=== PATIENT | female | born 1930 | race Caucasian/White ===

== ENCOUNTER 2017-12-29 08:13 | Inpatient (IN) | payer OTHER, MEDICARE ==
[2017-12-29] MEDS ORDERED: ACETAMINOPHEN 325 MG TABLET (FP) PO ONE (08:30)
--- NOTE | 2017-12-29 08:31 | PDOC ---
History of Present Illness - General Chief Complaint: Injury Stated Complaint: FALL Time Seen by Provider: 12/29/17 08:18 - History of Present Illness Initial Comments: 12/29/17 08:39 Patient is an 87-year-old female past medical history of insulin-dependent diabetes, CVA, hypertension, hypothyroidism, who presents to emergency department today after a trip and fall at home. Patient states that she was getting up from the couch to put her slipper on when her foot missed. She fell and landed on her right hip. She was unable to get up after the fall and laid on the floor for approximately one hour until family came to find her. Patient is unable to bear weight on that side. Denies pain while lying down, or hitting her head. Patient is not on blood thinners. Denies fevers, chills, recent illness, chest pain, shortness of breath, palpitations, headache, numbness and tingling in the extremities, frequency, urgency and hematuria. Triage vital signs notable for BP 178/87 PCP: Dr. Corey Past History - Travel Traveled outside of the country in the last 30 days: No Close contact w/someone who was outside of country & ill: No - Past Medical History Allergies/Adverse Reactions: Allergies Allergy/AdvReac Type Severity Reaction Status Date / Time No Known Allergies Allergy Verified 12/29/17 08:22 Home Medications: Ambulatory Orders Amlodipine Besylate 10 mg PO DAILY 12/29/17 Glyburide 10 mg PO BID 12/29/17 Insulin (Levemir) [Levemir Flexpen -] 18 units SQ DAILY 12/29/17 Levothyroxine [Synthroid -] 75 mcg PO DAILY 12/29/17 Lisinopril 20 mg PO BID 12/29/17 Metformin HCl [Glucophage] 1,000 mg PO BID 12/29/17 Metoprolol Tartrate 50 mg PO BID 12/29/17 Pioglitazone HCl [Actos] 30 mg PO DAILY 12/29/17 Pravastatin Sodium [Pravachol (Nf)] 40 mg PO HS 12/29/17 Sitagliptin Phosphate [Januvia] 100 mg PO DAILY 12/29/17 Diabetes: Yes HTN: Yes Hypercholesterolemia: Yes - Surgical History Cardiac Surgery: Yes (CAROTID ENDARDERECTOMY) - Suicide/Smoking/Psychosocial Hx Smoking History: Never smoked Have you smoked in the past 12 months: No Hx Alcohol Use: No Drug/Substance Use Hx: No Substance Use Type: None Hx Substance Use Treatment: No Review of Systems - Review of Systems Able to Perform ROS?: Yes Comments:: 12/29/17 08:40 CONSTITUTIONAL: Absent: fever, chills, diaphoresis, generalized weakness, malaise, loss of appetite HEENT: Absent: rhinorrhea, nasal congestion, throat pain, throat swelling, difficulty swallowing, mouth swelling, ear pain, eye pain, visual Changes CARDIOVASCULAR: Absent: chest pain, loss of consciousness, palpitations, irregular heart rate, peripheral edema RESPIRATORY: Absent: cough, shortness of breath, dyspnea with exertion, orthopnea, wheezing, stridor, hemoptysis GASTROINTESTINAL: Absent: abdominal pain, abdominal distension, nausea, vomiting, diarrhea, constipation, melena, hematochezia GENITOURINARY: Absent: dysuria, frequency, urgency, hesitancy, hematuria, flank pain, genital pain MUSCULOSKELETAL: Present: R hip pain, Absent: arthralgia, joint swelling SKIN: Absent: rash, itching, pallor HEMATOLOGIC/IMMUNOLOGIC: Absent: easy bleeding, easy bruising, lymphadenopathy, frequent infections ENDOCRINE: Absent: unexplained weight gain, unexplained weight loss, heat intolerance, cold intolerance NEUROLOGIC: Absent: headache, focal weakness or paresthesias, dizziness, unsteady gait, seizure, mental status changes, bladder or bowel incontinence PSYCHIATRIC: Absent: anxiety, depression, suicidal or homicidal ideation, hallucinations. Is the patient limited Frisian proficient: No *Physical Exam - Physical Exam Comments: 12/29/17 08:40 GENERAL: Well developed, well nourished. Awake and alert x2, person and place. No acute distress. HEENT: Normocephalic, atraumatic. PERRLA, EOMI. No conjunctival pallor. Sclera are non- icteric. Moist mucous membranes. Oropharynx is clear. NECK: Supple. Full ROM. No JVD. Carotid pulses 2+ and symmetric, without bruits. No thyromegaly. No lymphadenopathy. CARDIOVASCULAR: Regular rate and rhythm. Systolic murmur loudest at the R 2nd-3rd intercostal space at the base. No rubs, or gallops. Distal pulses are 2+ and symmetric. PULMONARY: No evidence of respiratory distress. Lungs clear to auscultation bilaterally. No wheezing, rales or rhonchi. ABDOMINAL: Soft. Non-tender. Non-distended. No rebound or guarding. No organomegaly. Normoactive bowel sounds. MUSCULOSKELETAL R leg is shortened and externally rotated. TTP R thigh. Pt. unable lift R leg. DP pulse 2+ intact. Sensation grossly intact. Normal range of motion at all other joints. No bony deformities or tenderness. No CVA tenderness. EXTREMITIES: No cyanosis. No clubbing. No edema. No calf tenderness. SKIN: Warm and dry. Normal capillary refill. No rashes. No jaundice. NEUROLOGICAL: Alert, awake, appropriate. Cranial nerves 2-12 intact. No deficits to light touch and temperature in face, upper extremities and lower extremities. No motor deficits in the in face, upper extremities and lower extremities. Normoreflexic in the upper and lower extremities. Normal speech. Toes are down- going bilaterally. Gait is normal without ataxia. PSYCHIATRIC: Cooperative. Good eye contact. Appropriate mood and affect. 12/29/17 10:23 ED Treatment Course - LABORATORY CBC & Chemistry Diagram: 12/29/17 08:51 12/29/17 08:51 Medical Decision Making - Medical Decision Making 12/29/17 08:43 Patient is an 87-year-old female past medical history of insulin-dependent diabetes, hypertension, CVA, who presents emergency department today after what appears to be a mechanical trip and fall. Given right leg shortening and external rotation high suspicion for hip fracture at this time. Will also have broad differential given unwitnessed fall at home. 1.CBC, CMP, PT/INR, troponin, type and screen 2.EKG, chest x-ray, hip x-ray, head CT 3.Tylenol 4.Lance catheter, bed rest 5.reevaluate 12/29/17 09:45 Pt is positive for proximal displaced femur fracture on wet read. 1st call to Krish/Brian/Jonel. Pt is pending lab work. When back will admit to [facility]. 12/29/17 10:02 Spoke with HECTOR Royal for Dr. Rutherford service. Case discussed. States they will take the patient tomorrow afternoon for surgery. EKG: NSR, rate 81bpm normal axis, normal intervals. Unspecific T wave abnormality III, II. Wet read CXR: Cardiomegaly. No PNA. Unchanged from January 2014. Patient still pending labs; Trop is < 0.02. Head CT: Negative for acute intracranial pathology. 12/29/17 10:57 Sugar 330, 6 units insulin given at this time. Ortho consult placed in computer. Microblogged symphony for admission. 12/29/17 11:02 Case discussed with Irina Cowan NP. Agrees to admission on med/surg. *DC/Admit/Observation/Transfer Diagnosis at time of Disposition: Hyperglycemia Right femoral shaft fracture Qualifiers: Encounter type: initial encounter Fracture type: closed Fracture morphology: other fracture Qualified Code(s): S72.391A - Other fracture of shaft of right femur, initial encounter for closed fracture - Discharge Dispostion Condition at time of disposition: Stable Admit: Yes - Referrals - Patient Instructions - Post Discharge Activity
[2017-12-29 08:36] VITALS: BMI 36.3
[2017-12-29] MEDS ORDERED: ACETAMINOPHEN 325 MG TABLET (FP) ONE (08:37)
[2017-12-29 09:09] LABS: BASO % 0.4 % (0-2.0); EOS % 0.3 % (0-4.5); HEMATOCRIT 33.1 % (32.4-45.2); HEMOGLOBIN 11.3 GM/dL (10.7-15.3); LYMPH % 9.8 % (8-40); MCH 29.5 pg (25.7-33.7); MCHC 34.1 g/dl (32.0-36.0); MEAN CELL VOLUME 86.7 fl (80-96); MEAN PLT VOLUME 8.5 fl (7.5-11.1); MONO % 6.6 % (3.8-10.2); NEUT % 82.9 % (42.8-82.8); PLATELET COUNT 223 K/MM3 (134-434); RBC 3.82 M/mm3 (3.60-5.2); RDW 14.7 % (11.6-15.6); WHITE BLOOD COUNT 9.8 K/mm3 (4.0-10.0)
[2017-12-29 09:20] LABS: INR 1.07 (0.82-1.09); PROTHROMBIN TIME (PATIENT) 12.1 SEC (9.98-11.88)
[2017-12-29 09:37] LABS: ALBUMIN 3.7 g/dl (3.4-5.0); ALK PHOS 73 U/L (45-117); ANION GAP 7 (8-16); BILIRUBIN,TOTAL 0.6 mg/dL (0.2-1.0); BLOOD UREA NITROGEN 25 mg/dL (7-18); CALCIUM 8.5 mg/dL (8.5-10.1); CHLORIDE 101 mmol/L (98-107); CO2 28 mmol/L (21-32); CREATININE 0.9 mg/dL (0.55-1.02); SGPT/ALT 17 U/L (12-78); SODIUM 136 mmol/L (136-145)
--- NOTE | 2017-12-29 09:49 | PDOC ---
*Physical Exam - Vital Signs Last Vital Signs Temp Pulse Resp BP Pulse Ox 98.7 F 87 18 177/58 100 12/29/17 08:23 12/29/17 08:23 12/29/17 08:23 12/29/17 08:23 12/29/17 08:23 ED Treatment Course - LABORATORY CBC & Chemistry Diagram: 12/29/17 08:51 12/29/17 08:51 - ADDITIONAL ORDERS Additional order review: Laboratory Results 12/29/17 12/29/17 08:51 08:51 PT with INR 12.10 H INR 1.07 Blood Type Cancelled Antibody Screen Cancelled 12/29/17 08:51 RBC 3.82 MCV 86.7 MCHC 34.1 RDW 14.7 MPV 8.5 Neutrophils % 82.9 H Lymphocytes % 9.8 D Monocytes % 6.6 Eosinophils % 0.3 Basophils % 0.4 - Medications Given in the ED: ED Medications Discontinued Medications Generic Name Dose Route Start Last Admin Trade Name Freq PRN Reason Stop Dose Admin Acetaminophen 650 mg 12/29/17 08:30 12/29/17 08:45 Tylenol - PO 12/29/17 08:31 650 mg ONCE ONE Administration Medical Decision Making - Medical Decision Making 12/29/17 09:47 87-year-old female had a fall at home when she got up from the couch and tried to get her slippers. She is complaining of right proximal hip pain. She denies head injury or other injuries. She denies loss of consciousness, however , the patient is unable to give all the details of the fall. On examination she is awake and alert, oriented 2. The head is normocephalic and atraumatic. Neck is normal with no tenderness. Lungs are clear. Heart is regular rhythm without gallop or murmur. Abdomen is soft and nontender. Extremities are notable for swelling and deformity of the right hip. The right lower leg is externally rotated and shortened. Sensation and motor is intact in the distal right leg. The foot is warm. Impression: Right proximal femur fracture as seen on x-ray. Head CT performed and negative on my preliminary review. Final radiology reading is pending. Patient will be admitted for orthopedic surgery. Medical screening with labs, EKG and chest x-ray in progress. *DC/Admit/Observation/Transfer Diagnosis at time of Disposition: Right femoral shaft fracture - Referrals - Patient Instructions - Post Discharge Activity
[2017-12-29 10:34] LABS: POTASSIUM 4.7 mmol/L (3.5-5.1); SGOT/AST 21 U/L (15-37)
[2017-12-29 10:35] LABS: GLUCOSE,RANDOM 330 mg/dL (74-106)
[2017-12-29] MEDS ORDERED: INSULIN REGULAR HUMAN 100 UNITS/ML *VIAL IVPUSH ONE (10:36)
--- NOTE | 2017-12-29 11:25 | HP ---
Admitting History and Physical - Primary Care Physician PCP: Roc Alvarez - Admission Chief Complaint: "took a fall" History of Present Illness: is a pleasant 87 year old female with a history of IDDM2, HTN, HLD,CAD , GERD, and Hypothyroidism who presents today s/p fall. Pt reports she was trying to get up from couch to put on slippers and sustained a fall and landed on her right hip. Pt denies LOC, hitting her head, lightheadedness, chest pain, palpitations, dizziness, unilateral weakness, n/v. She was unable to get up after the fall, found by family an hour later and they brought her into the ED. She reports she currently cannot move her hip. She denies any pain at the moment. She reports she is comfortable as long as she doesn't move. Otherwise, pt appears well, denies any further complaints. History Source: Patient, Family Member Limitations to Obtaining History: No Limitations - Past Medical History Cardiovascular: Yes: CAD, HTN, Hyperlipdemia, Mitral Insufficiency Gastrointestinal: Yes: GERD, Hemorrhoids, Other (fatty liver ds) Heme/Onc: Yes: Anemia, B12 Deficiency Musculoskeletal: Yes: Osteoarthritis Endocrine: Yes: Diabetes Mellitus (uncontrolled), Other (obesity) - Past Surgical History Past Surgical History: Yes: Carotid Endarterectomy (Right) - Smoking History Smoking history: Never smoked Have you smoked in the past 12 months: No - Alcohol/Substance Use Hx Alcohol Use: No History of Substance Use: reports: None - Social History Usual Living Arrangement: Yes: Alone History of Recent Travel: No Home Medications - Allergies Allergies/Adverse Reactions: Allergies Allergy/AdvReac Type Severity Reaction Status Date / Time No Known Allergies Allergy Verified 12/29/17 08:22 - Home Medications Home Medications: Ambulatory Orders Amlodipine Besylate 10 mg PO DAILY 12/29/17 Glyburide 10 mg PO BID 12/29/17 Insulin (Levemir) [Levemir Flexpen -] 18 units SQ DAILY 12/29/17 Levothyroxine [Synthroid -] 75 mcg PO DAILY 12/29/17 Lisinopril 20 mg PO BID 12/29/17 Metformin HCl [Glucophage] 1,000 mg PO BID 12/29/17 Metoprolol Tartrate 50 mg PO BID 12/29/17 Pioglitazone HCl [Actos] 30 mg PO DAILY 12/29/17 Pravastatin Sodium [Pravachol (Nf)] 40 mg PO HS 12/29/17 Sitagliptin Phosphate [Januvia] 100 mg PO DAILY 12/29/17 Family Disease History - Family Disease History Family Disease History: Diabetes: Father, Mother (liver ca ), Brother, [place]: Mother Review of Systems Findings/Remarks: as per hpi Physical Examination Vital Signs: Vital Signs Temperature 98.7 F 12/29/17 08:23 Pulse Rate 87 12/29/17 08:23 Respiratory Rate 18 12/29/17 08:23 Blood Pressure 177/58 12/29/17 08:23 O2 Sat by Pulse Oximetry (%) 100 12/29/17 08:23 Constitutional: Yes: Well Nourished, No Distress Cardiovascular: Yes: WNL, Regular Rate and Rhythm. No: Gallop, Murmur, Rub Respiratory: Yes: WNL, Regular, CTA Bilaterally. No: Rales, Rhonchi, SOB, Tachypnea, Wheezes Gastrointestinal: Yes: WNL, Normal Bowel Sounds, Soft, Abdomen, Obese. No: Distention, Tenderness Renal/: Yes: Dumont Present Musculoskeletal: Yes: WNL Extremities: Yes: External Rotation (right hip), Shortened. No: Cold, Cool, Cyanosis, Erythema Edema: Yes Edema: RLE: Trace Integumentary: Yes: WNL Neurological: Yes: WNL, Alert, Oriented Psychiatric: Yes: WNL, Alert, Oriented Labs: CBC, BMP 12/29/17 08:51 12/29/17 08:51 Imaging - Results Chest X-ray: Report Reviewed X-ray: Pending, Image Reviewed Cat Scan: Report Reviewed EKG: Pending Problem List - Problems (1) Right femoral shaft fracture Assessment/Plan: s/p fall xray reveals right femoral fracture right hip shortened and externally rotated, warm to touch orthopaedic surgery informed and consulted plan for surgery tomorrow am heparin sq tid, hold am dose tmrw Bedrest dumont in place NPO at MN Tylenol prn for adequate pain control awaiting pre-op cardiology clearance Post op- PT eval, hip precautions Code(s): S72.301A - UNSP FRACTURE OF SHAFT OF RIGHT FEMUR, INIT FOR CLOS FX Qualifiers: Encounter type: initial encounter Fracture type: closed Fracture morphology: other fracture Qualified Code(s): S72.391A - Other fracture of shaft of right femur, initial encounter for closed fracture (2) Fall at home Assessment/Plan: mechanical, right hip fx head ct/ chest xray neg fall precautions Code(s): W19.XXXA - UNSPECIFIED FALL, INITIAL ENCOUNTER; Y92.009 - UNSP PLACE IN UNSP NON-INSTITUT (PRIVATE) RESIDENCE PLACE Qualifiers: Encounter type: initial encounter Qualified Code(s): W19.XXXA - Unspecified fall, initial encounter; Y92.009 - Unspecified place in unspecified non-institutional (private) residence as the place of occurrence of the external cause; Y92.009 - Unspecified place in unspecified non-institutional ( private) residence as the place of occurrence of the external cause (3) Diabetes mellitus Assessment/Plan: chronic, gfr borderline 60, +proteinuria, glycosuria HgA1c pending Pt on ELIZABETH-I for renal protection will hold oral antihyperglycemic agents for now BGM continue levemir insulin sliding scale Code(s): E11.9 - TYPE 2 DIABETES MELLITUS WITHOUT COMPLICATIONS Qualifiers: Diabetes mellitus type: type 2 Diabetes mellitus complication status: with kidney complications Diabetes mellitus complication detail: with chronic kidney disease 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 Chronic kidney disease stage: stage 2 (mild) Qualified Code(s): E11.22 - Type 2 diabetes mellitus with diabetic chronic kidney disease; N18.2 - Chronic kidney disease, stage 2 (mild); N18.2 - Chronic kidney disease, stage 2 (mild); 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; 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; 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; Z79.4 - [facility] (current ) use of insulin (4) HTN (hypertension) Assessment/Plan: controlled continue lisinopril, amlodipine, metoprol low na diab diet Code(s): I10 - ESSENTIAL (PRIMARY) HYPERTENSION Qualifiers: Hypertension type: essential hypertension Qualified Code(s): I10 - Essential (primary) hypertension (5) Hypothyroidism Assessment/Plan: chronic, stable continue levothyroxine Code(s): E03.9 - HYPOTHYROIDISM, UNSPECIFIED (6) Obesity Assessment/Plan: BMI 36 incorporate life style modifications low na diab diet Code(s): E66.9 - OBESITY, UNSPECIFIED Qualifiers: Obesity type: due to excess calories Obesity classification: adult class 2 (BMI 35 - 39.9) Body mass index: BMI 36.0-36.9 (7) Hyperlipidemia Assessment/Plan: chronic continue lipitor low fat diet Code(s): E78.5 - HYPERLIPIDEMIA, UNSPECIFIED (8) History of carotid endarterectomy Assessment/Plan: s/p r carotid endarterectomy cardiology clearance pending Code(s): Z98.890 - OTHER SPECIFIED POSTPROCEDURAL STATES Assessment/Plan Dispo: Possible SNF for rehabilitation post-op
[2017-12-29 11:42] LABS: URINE APPEARANCE CLEAR; URINE BILIRUBIN NEGATIVE (NEGATIVE); URINE BLOOD NEGATIVE (NEGATIVE); URINE COLOR LTYELLOW; URINE GLUCOSE (UA) 3+ (NEGATIVE); URINE KETONE TRACE (NEGATIVE); URINE LEUK ESTERASE NEGATIVE (NEGATIVE); URINE NITRITE NEGATIVE (NEGATIVE); URINE UROBILINOGEN NEGATIVE mg/dL (0.2-1.0)
[2017-12-29 11:49] LABS: URINE PROTEIN 2+ (NEGATIVE)
[2017-12-29 11:51] LABS: EPI CELLS RARE /HPF (FEW)
[2017-12-29] MEDS ORDERED: ACETAMINOPHEN 325 MG TABLET (FP) PO PRN (12:17)
[2017-12-29] MEDS ORDERED: INSULIN (NOVOLOG) ASPART 100 UNITS/ML 10ML VIAL ONE (13:01)
[2017-12-29] MEDS ORDERED: LISINOPRIL 20 MG TABLET (FP) ONE (13:15)
[2017-12-29] MEDS ORDERED: amLODIPine BESYLATE 5 MG TABLET (FP) ONE (13:15)
[2017-12-29] MEDS ORDERED: METOPROLOL TARTRATE 50 MG TABLET (FP) ONE (13:16)
[2017-12-29] MEDS: LISINOPRIL 20 MG TABLET (FP) PO SCH ×2 (13:30→21:00)
[2017-12-29] MEDS: METOPROLOL TARTRATE 50 MG TABLET (FP) PO SCH ×2 (13:30→21:01)
[2017-12-29] MEDS: amLODIPine BESYLATE 10 MG TABLET (FP) PO SCH (13:30)
[2017-12-29] MEDS: INSULIN SLIDING SCALE (NOVOLOG) 1 VIAL SQ SCH ×2 (13:47→17:20)
[2017-12-29] MEDS ORDERED: INSULIN DETEMIR 100 UNITS/ML MDV SQ ONE (14:02)
--- NOTE | 2017-12-29 14:38 | EKG ---
Test Reason : Blood Pressure : / mmHG Vent. Rate : 081 BPM Atrial Rate : 081 BPM P-R Int : 146 ms QRS Dur : 088 ms QT Int : 358 ms P-R-T Axes : 006 -03 -59 degrees QTc Int : 415 ms NORMAL SINUS RHYTHM MINIMAL VOLTAGE CRITERIA FOR LVH, MAY BE NORMAL VARIANT ABNORMAL ECG WHEN COMPARED WITH ECG OF 08-SEP-2000 09:39, T WAVE INVERSION NOW EVIDENT IN INFERIOR LEADS T WAVE INVERSION NOW EVIDENT IN LATERAL LEADS Confirmed by ROSALBA MENDOZA MD ([id number]) on 12/29/2017 2:37:50 PM Referred By: Confirmed By:ROSALBA MENDOZA MD
[2017-12-29] MEDS: INSULIN DETEMIR 100 UNITS/ML MDV SQ SCH (15:13)
--- NOTE | 2017-12-29 16:30 | CONSULT ---
Consult Consult Specialty:: ortho Reason for Consultation:: Right hip fracture - History of Present Illness History of Present Illness: 87y/o female c/o right hip pain after a fall earlier today. She has been unable to walk since the fall. Denies any numbness or tingling in the RLE. Pain is worse with motion and better with rest. NVID. - Past Medical History Cardio/Vascular: Yes: CAD, HTN, Hyperlipdemia, Mitral Insufficiency Gastrointestinal: Yes: GERD, Hemorrhoids, Other (fatty liver ds) Musculoskeletal: Yes: Osteoarthritis Endocrine: Yes: Diabetes Mellitus (uncontrolled), Other (obesity) - Past Surgical History Past Surgical History: Yes: Carotid Endarterectomy (Right) - Alcohol/Substance Use Hx Alcohol Use: No History of Substance Use: reports: None - Smoking History Smoking history: Never smoked Have you smoked in the past 12 months: No - Social History History of Recent Travel: No Home Medications - Allergies Allergies/Adverse Reactions: Allergies Allergy/AdvReac Type Severity Reaction Status Date / Time No Known Allergies Allergy Verified 12/29/17 08:22 - Home Medications Home Medications: Ambulatory Orders Amlodipine Besylate 10 mg PO DAILY 12/29/17 Glimepiride [Amaryl] 2 mg GT DAILY #14 tablet 12/29/17 Glyburide 10 mg PO BID 12/29/17 Insulin (Levemir) [Levemir Flexpen -] 18 units SQ DAILY 12/29/17 Levothyroxine [Synthroid -] 75 mcg PO DAILY 12/29/17 Lisinopril 20 mg PO BID 12/29/17 Metformin HCl [Glucophage] 1,000 mg PO BID 12/29/17 Metoprolol Tartrate 50 mg PO BID 12/29/17 Pioglitazone HCl [Actos] 30 mg PO DAILY 12/29/17 Pravastatin Sodium [Pravachol (Nf)] 40 mg PO HS 12/29/17 Sitagliptin Phosphate [Januvia] 100 mg PO DAILY 12/29/17 Family Disease History - Family Disease History Family Disease History: Diabetes: Father, Mother (liver ca ), Brother, [place]: Mother Physical Exam Vital Signs: Vital Signs Temperature 99.1 F 12/29/17 15:50 Pulse Rate 79 12/29/17 15:50 Respiratory Rate 20 12/29/17 15:50 Blood Pressure 133/69 12/29/17 15:50 O2 Sat by Pulse Oximetry (%) 95 12/29/17 15:50 Constitutional: Yes: Well Nourished, No Distress, Calm HENT: Yes: Atraumatic, Normocephalic Musculoskeletal: Yes: Other (RLE: No open wounds. Mild edema of the extremity. No erythema or ecchymosis. Pain with motion of the hip. Compartments soft. No calf tenderness. NVID.) Labs: CBC, BMP 12/29/17 08:51 12/29/17 08:51 Imaging - Results X-ray: Report Reviewed, Image Reviewed (Right subtrochanteric fx displaced, nondisplaced intertrochanteric fracture) Assessment/Plan #1 Right subtrochateric and intertrochateric fracture -Discussed today's findings and treatment options with the patient -Plan for ORIF tomorrow with Dr. Rutherford -NPO after light breakfast -Pain control -SCD's
[2017-12-29] MEDS: DOCUSATE SODIUM 100 MG CAPSULE (FP) PO SCH ×2 (17:22→21:00)
[2017-12-29] MEDS: HEPARIN NA (PORCINE) 5,000 UNITS/ML 1ML VIAL SQ SCH ×2 (17:22→21:01)
--- NOTE | 2017-12-29 18:11 | CON.CARD ---
Cardiology Consult (text) - Consultation Consultation Note: CC: pre-op clearance 87 yo with h/o HTN, HL, mild , s/p rt CEA, iddm, gerd, hypothyroid, anemia, oa who presents s/p fall c/b femur fx requiring surgical repair. right hip pain since fall earlier unable to walk since the fall. Denies any numbness or tingling in the RLE. Pain is worse with motion and better with rest. no prior hx of cva, mi/stent/pci, chf states she regularly walks back and forth to grocery store. Has to rest every few minutes if she is pushing grocery cart. Can walk up a flight of stairs slowly without stopping. stable exercise capacity. intermittent LE edema if she eats salt. no cp, orthopnea, pnd, palps, dizziness. pmhx/pshx: per hpi social hx: never smoker fam hx: no family hx of cad. ros: per phi. additionally no f/c/s, n/v/d, cough, congestion, rash, h/a, bleeding visual disturbances. Ambulatory Orders Amlodipine Besylate 10 mg PO DAILY 12/29/17 Glyburide 10 mg PO BID 12/29/17 Insulin (Levemir) [Levemir Flexpen -] 18 units SQ DAILY 12/29/17 Levothyroxine [Synthroid -] 75 mcg PO DAILY 12/29/17 Lisinopril 20 mg PO BID 12/29/17 Metformin HCl [Glucophage] 1,000 mg PO BID 12/29/17 Metoprolol Tartrate 50 mg PO BID 12/29/17 Pioglitazone HCl [Actos] 30 mg PO DAILY 12/29/17 Pravastatin Sodium [Pravachol (Nf)] 40 mg PO HS 12/29/17 Sitagliptin Phosphate [Januvia] 100 mg PO DAILY 12/29/17 per office notes, also on hctz 25', asa 81' Current Medications Acetaminophen (Tylenol -) 650 mg PO Q6H PRN PRN Reason: PAIN LEVEL 4 - 6 Amlodipine Besylate (Norvasc -) 10 mg PO DAILY [facility] Last Admin: 12/29/17 13:30 Dose: 10 mg Atorvastatin Calcium (Lipitor -) 10 mg PO [facility] Docusate Sodium (Colace -) 100 mg PO TID [facility] Last Admin: 12/29/17 17:22 Dose: Not Given Heparin Sodium (Porcine) (Heparin -) 5,000 unit SQ TID [facility] Last Admin: 12/29/17 17:22 Dose: Not Given Sodium Chloride (Normal Saline -) 1,000 mls @ 42 mls/hr IV ASDIR [facility] Insulin Aspart (Novolog Vial Sliding Scale -) 1 vial SQ TIDAC [facility] PRN Reason: Protocol Last Admin: 12/29/17 17:20 Dose: 4 units Insulin Detemir (Levemir Vial) 18 units SQ AM [facility] Last Admin: 12/29/17 15:13 Dose: 18 units Levothyroxine Sodium (Synthroid -) 75 mcg PO AM [facility] Lisinopril (Prinivil) 20 mg PO BID [facility] Last Admin: 12/29/17 13:30 Dose: 20 mg Metoprolol Tartrate (Lopressor -) 50 mg PO BID [facility] Last Admin: 12/29/17 13:30 Dose: 50 mg Vital Signs - 24 hr 12/29/17 12/29/17 12/29/17 08:23 13:00 15:09 Temperature 98.7 F 98.3 F Pulse Rate 87 Pulse Rate [ 86 88 Apical] Respiratory 18 20 18 Rate Blood Pressure 177/58 Blood Pressure 130/65 125/62 [Right Arm] O2 Sat by Pulse 100 100 Oximetry (%) 12/29/17 15:50 Temperature 99.1 F Pulse Rate 79 Pulse Rate [ Apical] Respiratory 20 Rate Blood Pressure 133/69 Blood Pressure [Right Arm] O2 Sat by Pulse 95 Oximetry (%) Intake & Output 12/27/17 12/28/17 12/29/17 12/30/17 07:59 07:59 07:59 07:59 Output Total 900 Balance -900 Weight 205 lb 1.6 oz nad, calm jvd flat, neck supple ctab, nl effort rrr nl s1, s2 2/6 sys murmur at sternal border. + bs soft nt nd ext without e/c/c no carotid bruits, + dp/pt aaox3 no jaundice, diaphoresis. CBC, BMP 12/29/17 08:51 12/29/17 08:51 Laboratory Tests 12/29/17 09:30 Creatine Kinase 87 Troponin I < 0.02 ekg: baseline artifact. nsr. bline lvh. non-specific ST-t wave ab in inferolateral leads. (overall similar to prior office ekg from 03/2017) cxr: cardiomegaly, no acute pulmonary pathology head ct: volume loss, no acute pathology. echo 01/2017: nl lv/rv size/fn. EF 65-70%. 1+ as. 1+ mac. mod phtn 2009 stress: non-diagnositc ekg for ischemia. nl perfusion, nl EF A/P 87 yo with h/o HTN, HL, mild , s/p rt CEA, iddm, gerd, hypothyroid, anemia, oa who presents s/p fall c/b femur fx requiring surgical repair. Pre-op clearance: - Patient is stable from CV perspective. No further testing needed prior to intervention. Based on rcri, age/functional status, patient with low- intermediate risk of obdulio-operative CV events. Ok to hold aspirin obdulio- operatively. patient counseled on risk. htn - con't home meds (norvasc, toprol, lisinopril). ok to hold hctz obdulio- operatively. hl - con't home statin . - mld on last echo. routine outpatient echo surveillance. no signs of valvular decompensation.
[2017-12-29] MEDS: MORPHINE SULFATE 10 MG/1 ML *VIAL IVPUSH PRN (21:01)
[2017-12-29] MEDS ORDERED: ATORVASTATIN CA 10 MG TABLET (FP) PO SCH (22:00)
[2017-12-29] MEDS ORDERED: SODIUM CHLORIDE 1,000 ML IV SCH (23:59)
[2017-12-30] MEDS: MORPHINE SULFATE 10 MG/1 ML *VIAL IVPUSH PRN ×3 (02:51→21:04)
[2017-12-30] MEDS: INSULIN SLIDING SCALE (NOVOLOG) 1 VIAL SQ SCH ×3 (06:17→16:37)
[2017-12-30] MEDS: INSULIN DETEMIR 100 UNITS/ML MDV SQ SCH (06:17)
[2017-12-30] MEDS: DOCUSATE SODIUM 100 MG CAPSULE (FP) PO SCH ×3 (06:17→21:03)
[2017-12-30] MEDS: HEPARIN NA (PORCINE) 5,000 UNITS/ML 1ML VIAL SQ SCH (06:18)
[2017-12-30] MEDS ORDERED: INSULIN DETEMIR 100 UNITS/ML MDV SQ SCH (07:00)
[2017-12-30] MEDS ORDERED: LEVOTHYROXINE NA 75 MCG TABLET (FP) PO SCH (07:00)
[2017-12-30 07:33] LABS: HEMATOCRIT 25.7 % (32.4-45.2); HEMOGLOBIN 8.8 GM/dL (10.7-15.3); MCH 29.8 pg (25.7-33.7); MCHC 34.3 g/dl (32.0-36.0); MEAN PLT VOLUME 7.9 fl (7.5-11.1); PLATELET COUNT 207 K/MM3 (134-434); RBC 2.95 M/mm3 (3.60-5.2); RDW 14.3 % (11.6-15.6); WHITE BLOOD COUNT 8.1 K/mm3 (4.0-10.0)
[2017-12-30 07:45] LABS: INR 1.22 (0.82-1.09); PROTHROMBIN TIME (PATIENT) 13.8 SEC (9.98-11.88)
[2017-12-30 08:16] LABS: CHLORIDE 101 mmol/L (98-107); POTASSIUM 3.8 mmol/L (3.5-5.1); SODIUM 137 mmol/L (136-145)
[2017-12-30 08:23] LABS: ANION GAP 10 (8-16); BLOOD UREA NITROGEN 34 mg/dL (7-18); CALCIUM 8.1 mg/dL (8.5-10.1); CO2 26 mmol/L (21-32); CREATININE 1.3 mg/dL (0.55-1.02); GLUCOSE,RANDOM 216 mg/dL (74-106); MAGNESIUM 1.6 mg/dL (1.8-2.4); PHOSPHOROUS 3.6 mg/dL (2.5-4.9)
[2017-12-30] MEDS: LISINOPRIL 20 MG TABLET (FP) PO SCH ×3 (08:25→21:03)
[2017-12-30] MEDS: amLODIPine BESYLATE 10 MG TABLET (FP) PO SCH ×2 (08:25→09:44)
[2017-12-30] MEDS: METOPROLOL TARTRATE 50 MG TABLET (FP) PO SCH ×3 (08:25→21:03)
--- NOTE | 2017-12-30 10:51 | PN ---
Progress Note, Physician Chief Complaint: Pt lying in bed in no acute distress. Reports pain only with movement. Otherwise , no complaints. Denies any chest pain, sob, n/v/d. awaiting surgery in the afternoon. - Current Medication List Current Medications: Active Medications Acetaminophen (Tylenol -) 650 mg PO Q6H PRN PRN Reason: PAIN LEVEL 4 - 6 Amlodipine Besylate (Norvasc -) 10 mg PO DAILY [facility] Last Admin: 12/30/17 09:44 Dose: Not Given Atorvastatin Calcium (Lipitor -) 10 mg PO HS [facility] Last Admin: 12/29/17 21:00 Dose: 10 mg Docusate Sodium (Colace -) 100 mg PO TID [facility] Last Admin: 12/30/17 06:17 Dose: 100 mg Heparin Sodium (Porcine) (Heparin -) 5,000 unit SQ TID [facility] Last Admin: 12/30/17 06:18 Dose: Not Given Sodium Chloride (Normal Saline -) 1,000 mls @ 42 mls/hr IV ASDIR [facility] Last Admin: 12/30/17 00:11 Dose: 42 mls/hr Insulin Aspart (Novolog Vial Sliding Scale -) 1 vial SQ TIDAC [facility] PRN Reason: Protocol Last Admin: 12/30/17 06:17 Dose: 6 units Insulin Detemir (Levemir Vial) 18 units SQ AM [facility] Last Admin: 12/30/17 06:17 Dose: Not Given Levothyroxine Sodium (Synthroid -) 75 mcg PO AM [facility] Last Admin: 12/30/17 06:17 Dose: 75 mcg Lisinopril (Prinivil) 20 mg PO BID [facility] Last Admin: 12/30/17 09:44 Dose: Not Given Metoprolol Tartrate (Lopressor -) 50 mg PO BID [facility] Last Admin: 12/30/17 09:44 Dose: Not Given Morphine Sulfate (Morphine Injection -) 1 mg IVPUSH Q4H PRN PRN Reason: PAIN LEVEL 7 - 10 Last Admin: 12/30/17 06:52 Dose: 1 mg - Objective Vital Signs: Vital Signs Temperature 97.8 F 12/30/17 08:00 Pulse Rate 80 12/30/17 08:00 Respiratory Rate 18 12/30/17 08:00 Blood Pressure 141/56 12/30/17 08:00 O2 Sat by Pulse Oximetry (%) 96 12/29/17 21:00 Constitutional: Yes: Well Nourished, No Distress Cardiovascular: Yes: WNL, Regular Rate and Rhythm, Murmur Respiratory: Yes: WNL, Regular, CTA Bilaterally. No: Rales, Rhonchi, Tachypnea , Wheezes Gastrointestinal: Yes: WNL, Normal Bowel Sounds, Soft, Abdomen, Obese. No: Distention, Tenderness Genitourinary: Yes: Dumont Present Extremities: Yes: External Rotation, Shortened (right hip) Edema: Yes Edema: LLE: Trace, RLE: 1+ Integumentary: Yes: WNL Neurological: Yes: WNL, Alert, Oriented Psychiatric: Yes: WNL, Alert, Oriented Labs: CBC, BMP 12/30/17 06:40 12/30/17 06:40 INR, PTT INR 1.22 (0.82-1.09) H 12/30/17 06:40 Problem List - Problems (1) Right femoral shaft fracture Code(s): S72.301A - UNSP FRACTURE OF SHAFT OF RIGHT FEMUR, INIT FOR CLOS FX Qualifiers: Encounter type: initial encounter Fracture type: closed Fracture morphology: other fracture Qualified Code(s): S72.391A - Other fracture of shaft of right femur, initial encounter for closed fracture (2) Fall at home Code(s): W19.XXXA - UNSPECIFIED FALL, INITIAL ENCOUNTER; Y92.009 - UNSP PLACE IN UNSP NON-INSTITUT (PRIVATE) RESIDENCE PLACE Qualifiers: Encounter type: initial encounter Qualified Code(s): W19.XXXA - Unspecified fall, initial encounter; Y92.009 - Unspecified place in unspecified non-institutional (private) residence as the place of occurrence of the external cause; Y92.009 - Unspecified place in unspecified non-institutional ( private) residence as the place of occurrence of the external cause (3) Diabetes mellitus Code(s): E11.9 - TYPE 2 DIABETES MELLITUS WITHOUT COMPLICATIONS Qualifiers: Diabetes mellitus type: type 2 Diabetes mellitus complication status: with kidney complications Diabetes mellitus complication detail: with chronic kidney disease Diabetes mellitus termite exterminator insulin use: with snf use Chronic kidney disease stage: stage 2 (mild) Qualified Code(s): E11.22 - Type 2 diabetes mellitus with diabetic chronic kidney disease; N18.2 - Chronic kidney disease, stage 2 (mild); N18.2 - Chronic kidney disease, stage 2 (mild); Z79.4 - jail (current) use of insulin; Z79.4 - jail (current) use of insulin; Z79.4 - local intermodal truck driver (current) use of insulin; Z79.4 - local intermodal truck driver (current ) use of insulin (4) CKD (chronic kidney disease) stage 2, GFR 60-89 ml/min Code(s): N18.2 - CHRONIC KIDNEY DISEASE, STAGE 2 (MILD) (5) HTN (hypertension) Code(s): I10 - ESSENTIAL (PRIMARY) HYPERTENSION Qualifiers: Hypertension type: essential hypertension Qualified Code(s): I10 - Essential (primary) hypertension (6) Hypothyroidism Code(s): E03.9 - HYPOTHYROIDISM, UNSPECIFIED (7) Obesity Code(s): E66.9 - OBESITY, UNSPECIFIED Qualifiers: Obesity type: due to excess calories Obesity classification: adult class 2 (BMI 35 - 39.9) Body mass index: BMI 36.0-36.9 (8) Hyperlipidemia Code(s): E78.5 - HYPERLIPIDEMIA, UNSPECIFIED (9) History of carotid endarterectomy Code(s): Z98.890 - OTHER SPECIFIED POSTPROCEDURAL STATES (10) Anemia Code(s): D64.9 - ANEMIA, UNSPECIFIED Qualifiers: Anemia type: other cause Other causes of anemia: acute posthemorrhagic Qualified Code(s): D62 - Acute posthemorrhagic anemia (11) Hypomagnesemia Code(s): E83.42 - HYPOMAGNESEMIA (12) Hypokalemia Code(s): E87.6 - HYPOKALEMIA Assessment/Plan (1) Right femoral shaft fracture Assessment/Plan: s/p fall xray reveals right femoral fracture right hip shortened and externally rotated, warm to touch orthopaedic surgery consult appreciated ORIF today heparin sq tid, hold for today Bedrest dumont in place NPO Tylenol prn for adequate pain control cleared by cardiology Post op- PT eval, hip precautions Code(s): S72.301A - UNSP FRACTURE OF SHAFT OF RIGHT FEMUR, INIT FOR CLOS FX Qualifiers: Encounter type: initial encounter Fracture type: closed Fracture morphology: other fracture Qualified Code(s): S72.391A - Other fracture of shaft of right femur, initial encounter for closed fracture (2) Fall at home Assessment/Plan: mechanical, right hip fx head ct/ chest xray neg fall precautions Code(s): W19.XXXA - UNSPECIFIED FALL, INITIAL ENCOUNTER; Y92.009 - UNSP PLACE IN UNSP NON-INSTITUT (PRIVATE) RESIDENCE PLACE Qualifiers: Encounter type: initial encounter Qualified Code(s): W19.XXXA - Unspecified fall, initial encounter; Y92.009 - Unspecified place in unspecified non-institutional (private) residence as the place of occurrence of the external cause; Y92.009 - Unspecified place in unspecified non-institutional ( private) residence as the place of occurrence of the external cause (3) Anemia Assessment/Plan: Drop in h/h today, pt asymptomatic secondary to blood loss from hip fx monitor for now Transfuse if hg<8 Code(s): D64.9 - ANEMIA, UNSPECIFIED Qualifiers: Anemia type: other cause Other causes of anemia: acute posthemorrhagic Qualified Code(s): D62 - Acute posthemorrhagic anemia (4) CKD (chronic kidney disease) stage 2, GFR 60-89 ml/min Assessment/Plan: acute on chronic Cr 1.3 today most likely prerenal IVF will monitor Code(s): N18.2 - CHRONIC KIDNEY DISEASE, STAGE 2 (MILD) (5) Diabetes mellitus Assessment/Plan: chronic, gfr borderline 60, +proteinuria, glycosuria HgA1c 8.4 Pt on ELIZABETH-I for renal protection will hold oral antihyperglycemic agents for now BGM continue levemir insulin sliding scale Code(s): E11.9 - TYPE 2 DIABETES MELLITUS WITHOUT COMPLICATIONS Qualifiers: Diabetes mellitus type: type 2 Diabetes mellitus complication status: with kidney complications Diabetes mellitus complication detail: with chronic kidney disease Diabetes mellitus snf insulin use: with snf use Chronic kidney disease stage: stage 2 (mild) Qualified Code(s): E11.22 - Type 2 diabetes mellitus with diabetic chronic kidney disease; N18.2 - Chronic kidney disease, stage 2 (mild); N18.2 - Chronic kidney disease, stage 2 (mild); Z79.4 - jail (current) use of insulin; Z79.4 - jail (current) use of insulin; Z79.4 - jail (current) use of insulin; Z79.4 - jail (current ) use of insulin (6) HTN (hypertension) Assessment/Plan: controlled continue lisinopril, amlodipine, metoprol low na diab diet Code(s): I10 - ESSENTIAL (PRIMARY) HYPERTENSION Qualifiers: Hypertension type: essential hypertension Qualified Code(s): I10 - Essential (primary) hypertension (7) Hypothyroidism Assessment/Plan: chronic, stable continue levothyroxine Code(s): E03.9 - HYPOTHYROIDISM, UNSPECIFIED (8) Obesity Assessment/Plan: BMI 36 incorporate life style modifications low na diab diet Code(s): E66.9 - OBESITY, UNSPECIFIED Qualifiers: Obesity type: due to excess calories Obesity classification: adult class 2 (BMI 35 - 39.9) Body mass index: BMI 36.0-36.9 (9) Hyperlipidemia Assessment/Plan: chronic continue lipitor low fat diet Code(s): E78.5 - HYPERLIPIDEMIA, UNSPECIFIED (10) History of carotid endarterectomy Assessment/Plan: s/p r carotid endarterectomy cardiology clearance done Code(s): Z98.890 - OTHER SPECIFIED POSTPROCEDURAL STATES (11) Hypomagnesemia Assessment/Plan: Mg1.6 IV Mag 2g ordered monitor bmp Code(s): E83.42 - HYPOMAGNESEMIA (12) Hypokalemia Assessment/Plan: K3.8, mild will monitor for now Code(s): E87.6 - HYPOKALEMIA Assessment/Plan Dispo: SNF for rehabilitation post-op
[2017-12-30] MEDS ORDERED: MAGNESIUM 2GM/50ML STERILE WATER IVPB IVPB ONE (12:39)
[2017-12-30] MEDS ORDERED: BUPIVACAINE HCL/PF 0.5% (5MG/ML) 10 ML VIAL ONE (15:46)
[2017-12-30] MEDS ORDERED: PROPOFOL 20 ML ONE (15:59)
[2017-12-30] MEDS ORDERED: ceFAZolin SODIUM 1 GM VIAL IVPB ONE (16:20)
[2017-12-30] MEDS ORDERED: MIDAZOLAM HCL 2 MG/2 ML SINGLE DOSE VIAL ONE (16:22)
[2017-12-30] MEDS ORDERED: ONDANSETRON 4 MG/2 ML VIAL IVPUSH PRN ×2 (18:27→19:05)
[2017-12-30] MEDS ORDERED: SODIUM CHLORIDE 1,000 ML IV SCH ×2 (19:00→19:05)
[2017-12-30] MEDS ORDERED: ACETAMINOPHEN 325 MG TABLET (FP) PO PRN (19:05)
[2017-12-30] MEDS ORDERED: MORPHINE SULFATE 10 MG/1 ML *VIAL IVPUSH PRN ×2 (19:05→19:33)
[2017-12-30] MEDS ORDERED: oxyCODONE HCL 5 MG TABLET PO PRN (19:35)
--- NOTE | 2017-12-30 19:46 | SURG ---
Surgery Airplane Pilot Photogrammetry Note Airplane Pilot Photogrammetry: Elena Kumar PA-C Date of Service: 12/30/17 Diagnosis: Right hip subtrochaneric fracture Procedure: Open reduction internal fixation of right hip fracture I was present for the entirety of the operative procedure. For further detail, please refer to operative report. Visit type - Case Type Case Type: ED Admission - Emergency Emergency Visit: Yes ED Registration Date: 12/29/17 Care time: The patient presented to the Emergency Department on the above date and was hospitalized for further evaluation of their emergent condition. - New patient This patient is new to me today: Yes Date on this admission: 12/30/17
--- NOTE | 2017-12-30 19:50 | OP ---
Operative Note - Note: Operative Date: 12/30/17 Pre-Operative Diagnosis: Right hip subtrochanteric fracture Operation: Open reduction Internal fixation of right hip fracture Post-Operative Diagnosis: Same as Pre-op Surgeon: Cisco Rutherford Roundhouse Worker: Elena Kumar Anesthesiologist/LICENSED OPTICAL DISPENSER: Jasvir Evans Anesthesia: Spinal (with sedation) Estimated Blood Loss (mls): 150 Fluid Volume Replaced (mls): 1,000 Operative Report Dictated: Yes
[2017-12-30] MEDS: ATORVASTATIN CA 10 MG TABLET (FP) PO SCH (21:04)
[2017-12-31] MEDS: ceFAZolin 1 GRAM PREMIX BAG IVPB SCH ×2 (00:30→08:27)
[2017-12-31] MEDS: oxyCODONE HCL 5 MG TABLET PO PRN ×2 (00:38→13:15)
[2017-12-31] MEDS: MORPHINE SULFATE 10 MG/1 ML *VIAL IVPUSH PRN (05:43)
[2017-12-31] MEDS: DOCUSATE SODIUM 100 MG CAPSULE (FP) PO SCH ×3 (05:44→22:14)
[2017-12-31] MEDS ORDERED: INSULIN (NOVOLOG) ASPART 100 UNITS/ML 10ML VIAL ONE ×2 (06:11→11:23)
[2017-12-31] MEDS: INSULIN SLIDING SCALE (NOVOLOG) 1 VIAL SQ SCH ×3 (06:12→16:48)
[2017-12-31] MEDS: INSULIN DETEMIR 100 UNITS/ML MDV SQ SCH (06:13)
[2017-12-31] MEDS: LEVOTHYROXINE NA 75 MCG TABLET (FP) PO SCH (06:13)
[2017-12-31 07:50] LABS: BASO % 0.1 % (0-2.0); HEMOGLOBIN 8.5 GM/dL (10.7-15.3); LYMPH % 11.9 % (8-40); MCH 29.1 pg (25.7-33.7); MEAN CELL VOLUME 85.7 fl (80-96); MEAN PLT VOLUME 8.4 fl (7.5-11.1); MONO % 13.8 % (3.8-10.2); NEUT % 74.2 % (42.8-82.8); PLATELET COUNT 180 K/MM3 (134-434); RBC 2.91 M/mm3 (3.60-5.2); RDW 15.5 % (11.6-15.6)
[2017-12-31 08:06] LABS: ANION GAP 17 (8-16); BLOOD UREA NITROGEN 26 mg/dL (7-18); CALCIUM 7.6 mg/dL (8.5-10.1); CHLORIDE 102 mmol/L (98-107); CO2 20 mmol/L (21-32); MAGNESIUM 2.2 mg/dL (1.8-2.4); POTASSIUM 3.9 mmol/L (3.5-5.1); SODIUM 139 mmol/L (136-145)
[2017-12-31 08:15] LABS: GLUCOSE,RANDOM 344 mg/dL (74-106)
[2017-12-31] MEDS: ENOXAPARIN NA (PORCINE) 40 MG/0.4 ML DISP.SYRIN SQ SCH (09:26)
[2017-12-31] MEDS: amLODIPine BESYLATE 10 MG TABLET (FP) PO SCH (09:27)
[2017-12-31] MEDS: LISINOPRIL 20 MG TABLET (FP) PO SCH ×2 (09:27→22:14)
[2017-12-31] MEDS: METOPROLOL TARTRATE 50 MG TABLET (FP) PO SCH ×2 (09:27→22:14)
--- NOTE | 2017-12-31 10:00 | OP ---
DATE OF OPERATION: 12/30/2017 PREOPERATIVE DIAGNOSIS: Right subtrochanteric femur fracture. POSTOPERATIVE DIAGNOSIS: Right subtrochanteric femur fracture. PROCEDURE: Right femoral nail. SURGEON: Cisco Rutherford MD COVER CREASER: HECTOR Aguirre, whose skillful assistance was necessary for the safe and timely performance of the procedure. Ms. Kumar was able to help provide limb positioning, retraction, assist in fracture reduction as well as the insertion of orthopedic fixation hardware. ANESTHESIA: Spinal. CONDITION: Postoperative condition stable. COMPLICATIONS: None. IMPLANTS: Paul Gamma nail 10 x 360 mm x 125, with a 95-mm proximal lag screw and two 5-mm wide distal locking screws. ESTIMATED BLOOD LOSS: 150 INDICATIONS: This is a pleasant 87-year-old female who had suffered a trip and fall. She was medically optimized and cleared for fixation of her hip fracture. We did discuss the option of nonoperative care, which would involve prolonged bedrest, and she would likely never walk again. I recommended operative fixation with an intramedullary nail. We reviewed operative risks in detail, including bleeding, infection, neurovascular injury, need for further surgery, postoperative pain and stiffness, nonunion, malunion, hardware failure or cut out. We discussed medical risks, such as heart attack, stroke, DVT, PE and . We discussed future fall prevention. We discussed the use of perioperative antibiotics and DVT prophylaxis. I addressed all of the patient's and her family's questions. They voiced understanding and elected to proceed. DESCRIPTION OF PROCEDURE: The patient was brought to the operating room, where spinal anesthesia was administered. She was then placed onto the fracture table, careful to pad all the bony prominences. Initially a reduction was attempted. However, even despite the use of a crutch, a satisfactory reduction was not obtained. The patient was then prepped and draped in the usual sterile fashion. A preoperative dose of antibiotics was given, and the usual time-out procedure was performed. Initially attention was turned to the proximal portion of the femur. An incision was planned out just proximal to the tip of the greater trochanter. This was carried down through skin. A guidewire was now placed onto the tip of the greater trochanter and inserted into the femoral canal. Guidewire placement was confirmed fluoroscopically in 2 planes. The guidewire was now over-reamed, utilizing a soft tissue protector to protect the soft tissues, and the initial guidewire was removed. A long guidewire was now inserted into the proximal fragment. Given the inability to reduce the fracture, an incision was made over the fracture site laterally. This was carried down through the skin to the subcutaneous tissue. Blunt spreading was used to expose the fascia sintia, which was then split in line with its fibers. Utilizing finger dissection, the muscle was elevated off the finger in order to expose the fracture site. A hematoma was now evacuated. A fracture reduction clamp was now applied to the fracture. However, every time the guidewire was being advanced through, the fracture clamp would lose purchase, given the comminution at the fracture site. The decision was now made to use a cerclage wire. The wire-passing device was now kept in close proximity with the bone and passed around both fragments. The wire was now passed and then tensioned. However, it was not crimped. This maintained the bone in near anatomic alignment. The guidewire was now easily passed down the femoral canal down to the physeal scar. Guidewire was measured and then the proper nail was chosen. The guidewire was now over-reamed up to a size 11-1/2 to allow passage of a 10 nail. Excellent chatter was achieved. The nail was now inserted over the guidewire. Nail placement was confirmed fluoroscopically in 2 planes. The guidewire was now removed. The trocar was now inserted through the previously made incision onto the level of the lateral femoral cortex. A guidewire was now advanced through the center of the femoral neck into the center of the femoral head. Guide pin placement was confirmed fluoroscopically in 2 planes. This was measured and a 95-mm lag screw was chosen. This was reamed and then the screw was inserted. Screw placement was verified fluoroscopically in 2 planes. The set screw was now inserted into the proximal portion of the nail, tightened down all the way and then backed off a quarter turn. The entire proximal construct, including fracture reduction hardware placement, was now verified. The wire was then crimped in place under tension. The access wire was cut. Attention was now turned distally. Here, perfect circles technique was used to identify the location of the 2 distal locking screws. Incision was made over each. Blunt spreading was used to carry down to the level of the bone. Both holes were drilled, measured, and screws were inserted of appropriate length. The entire construct was now examined fluoroscopically. Both fracture reduction and hardware placement were satisfactory. The wounds were copiously irrigated. The deep tissue was approximated using 0 Vicryl. The subcutaneous tissue was approximated using 2-0 Vicryl. The skin was closed using 3-0 nylon. Sterile dressings were placed. The patient was transferred to the recovery room in stable condition. Laurie HENRY/[id number]
--- NOTE | 2017-12-31 15:27 | PN ---
Physical Exam: SUBJECTIVE: Patient seen and examined she reports pain with movement to her R hip, she wants to change position. Denies sob, cp, n/v. Events: - Low grade fever 100.7 OBJECTIVE: Vital Signs Period Temp Pulse Resp BP Sys/Voss Pulse Ox Last 24 Hr 98.2 F-100.7 F 78-87 13-20 118-151/37-66 98-100 PE Neuro: alert, awake, cn 2-12intact Pulm: CTA anteriorly CV: s1 s2 2/6 systolic murmur Abd: s nt nd + bs Ext: R hip dressing x3 CDI + tenderness, +1 pitting edema b/l Laboratory Results - last 24 hr 12/29/17 12/31/17 12/31/17 12:46 05:51 06:20 WBC 10.0 RBC 2.91 L Hgb 8.5 L Hct 25.0 L MCV 85.7 MCH 29.1 MCHC 34.0 RDW 15.5 Plt Count 180 MPV 8.4 Neutrophils % 74.2 Lymphocytes % 11.9 D Monocytes % 13.8 H D Eosinophils % 0.0 D Basophils % 0.1 Sodium Potassium Chloride Carbon Dioxide Anion Gap BUN Creatinine POC Glucometer 383 Random Glucose Calcium Magnesium Blood Type O POSITIVE Antibody Screen Negative Crossmatch See Detail 12/31/17 12/31/17 06:20 11:14 WBC RBC Hgb Hct MCV MCH MCHC RDW Plt Count MPV Neutrophils % Lymphocytes % Monocytes % Eosinophils % Basophils % Sodium 139 Potassium 3.9 Chloride 102 Carbon Dioxide 20 L Anion Gap 17 H BUN 26 H Creatinine 1.0 POC Glucometer 320 Random Glucose 344 H* Calcium 7.6 L Magnesium 2.2 Blood Type Antibody Screen Crossmatch Active Medications Generic Name Dose Route Start Last Admin Trade Name Freq PRN Reason Stop Dose Admin Acetaminophen 650 mg 12/30/17 19:05 Tylenol - PO Q6H PRN PAIN LEVEL 4 - 6 Amlodipine Besylate 10 mg 12/31/17 10:00 12/31/17 09:27 Norvasc - PO 10 mg DAILY RHIANNA Administration Atorvastatin Calcium 10 mg 12/30/17 22:00 12/30/17 21:04 Lipitor - PO 10 mg HS RHIANNA Administration Docusate Sodium 100 mg 12/30/17 22:00 12/31/17 14:22 Colace - PO 100 mg TID RHIANNA Administration Enoxaparin Sodium 40 mg 12/31/17 10:00 12/31/17 09:26 Lovenox - SQ 01/31/18 10:00 40 mg DAILY RHIANNA Administration Sodium Chloride 1,000 mls @ 83 mls/hr 12/30/17 19:00 12/30/17 20:15 Normal Saline - IV 0 mls ASDIR RHIANNA Administration Insulin Aspart 1 vial 12/31/17 07:00 12/31/17 11:41 Novolog Vial Sliding Scale - SQ 8 units TIDAC RHIANNA Administration Protocol Insulin Detemir 18 units 12/31/17 07:00 12/31/17 06:13 Levemir Vial SQ 18 units AM RHIANNA Administration Levothyroxine Sodium 75 mcg 12/31/17 07:00 12/31/17 06:13 Synthroid - PO 75 mcg AM RHIANNA Administration Lisinopril 20 mg 12/30/17 22:00 12/31/17 09:27 Prinivil PO 20 mg BID RHIANNA Administration Metoprolol Tartrate 50 mg 12/30/17 22:00 12/31/17 09:27 Lopressor - PO 50 mg BID RHIANNA Administration Morphine Sulfate 2 mg 12/30/17 20:05 12/31/17 05:43 Morphine Injection - IVPUSH 2 mg Q4H PRN Administration breakthrough Ondansetron HCl 4 mg 12/30/17 19:05 Zofran Injection IVPUSH Q6H PRN NAUSEA AND/OR VOMITING Oxycodone HCl 5 mg 12/30/17 19:34 12/31/17 13:15 Roxicodone - PO 5 mg Q6H PRN Administration PAIN LEVEL 1-5 Assessment: 87 year old female admitted s/p fall Plan: Right femoral shaft fracture s/p fall - s/p ORIF r hip - Lovenox 40mg daily - PT daily - SNF for rehab - Start incentive spirometry DEVONTE on CKD - Decrease fluids 42cc/hr - Can stop once pt w/ adequate po intake DM II, uncontrolled - ISS, BGM ACHS - levemir 18 units qam Hypothyroid - Synthroid 75mcg HTN - Stable - Continue lisinopril, amlodipine, metoprolol HLD - Statin Hypomagnesemia - Resolved s/p r carotid endarterectomy DVT - lovenox Visit type - Emergency Visit Emergency Visit: Yes ED Registration Date: 12/29/17 Care time: The patient presented to the Emergency Department on the above date and was hospitalized for further evaluation of their emergent condition. - New Patient This patient is new to me today: Yes Date on this admission: 12/31/17 - Critical Care Critical Care patient: No
[2017-12-31] MEDS: SODIUM CHLORIDE 1,000 ML IV SCH (16:02)
--- NOTE | 2017-12-31 16:50 | PN ---
Progress Note, Physician Chief Complaint: day #1 s/p Right gamma nail under spinal - Current Medication List Current Medications: Active Medications Acetaminophen (Tylenol -) 650 mg PO Q6H PRN PRN Reason: PAIN LEVEL 4 - 6 Amlodipine Besylate (Norvasc -) 10 mg PO DAILY [facility] Last Admin: 12/31/17 09:27 Dose: 10 mg Atorvastatin Calcium (Lipitor -) 10 mg PO HS [facility] Last Admin: 12/30/17 21:04 Dose: 10 mg Docusate Sodium (Colace -) 100 mg PO TID [facility] Last Admin: 12/31/17 14:22 Dose: 100 mg Enoxaparin Sodium (Lovenox -) 40 mg SQ DAILY [facility] Stop: 01/31/18 10:00 Last Admin: 12/31/17 09:26 Dose: 40 mg Sodium Chloride (Normal Saline -) 1,000 mls @ 42 mls/hr IV ASDIR [facility] Last Admin: 12/31/17 16:02 Dose: 42 mls/hr Insulin Aspart (Novolog Vial Sliding Scale -) 1 vial SQ TIDAC [facility] PRN Reason: Protocol Last Admin: 12/31/17 11:41 Dose: 8 units Insulin Detemir (Levemir Vial) 18 units SQ AM [facility] Last Admin: 12/31/17 06:13 Dose: 18 units Levothyroxine Sodium (Synthroid -) 75 mcg PO AM [facility] Last Admin: 12/31/17 06:13 Dose: 75 mcg Lisinopril (Prinivil) 20 mg PO BID [facility] Last Admin: 12/31/17 09:27 Dose: 20 mg Metoprolol Tartrate (Lopressor -) 50 mg PO BID [facility] Last Admin: 12/31/17 09:27 Dose: 50 mg Morphine Sulfate (Morphine Injection -) 2 mg IVPUSH Q4H PRN PRN Reason: breakthrough Last Admin: 12/31/17 05:43 Dose: 2 mg Ondansetron HCl (Zofran Injection) 4 mg IVPUSH Q6H PRN PRN Reason: NAUSEA AND/OR VOMITING Oxycodone HCl (Roxicodone -) 5 mg PO Q6H PRN PRN Reason: PAIN LEVEL 1-5 Last Admin: 12/31/17 13:15 Dose: 5 mg - Objective Vital Signs: Vital Signs Temperature 100.7 F H 12/31/17 15:05 Pulse Rate 85 03/03/18 15:05 Respiratory Rate 20 12/31/17 08:24 Blood Pressure 118/46 12/31/17 15:05 O2 Sat by Pulse Oximetry (%) 98 12/31/17 09:00 Labs: CBC, BMP 12/31/17 06:20 12/31/17 06:20 INR, PTT INR 1.22 (0.82-1.09) H 12/30/17 06:40 Assessment/Plan doing well today - resting comfortably. No back pain, HERMOSILLO from spinal- no other anesthetic complications or issues. Continue current care
--- NOTE | 2017-12-31 17:13 | PN ---
Progress Note (short form) - Note Progress Note: pt lying comf in bed Last Vital Signs Temp Pulse Resp BP Pulse Ox 100.7 F H 85 20 118/46 98 12/31/17 15:05 12/31/17 15:05 12/31/17 08:24 12/31/17 15:05 12/31/17 09:00 RLE dressings with small spotting calves soft nt sens int to lt 2+ dp ehl fhl ta g s intact Abnormal Lab Results 12/29/17 12/31/17 12/31/17 12:46 06:20 06:20 RBC 2.91 L Hgb 8.5 L Hct 25.0 L Monocytes % 13.8 H D Carbon Dioxide 20 L Anion Gap 17 H BUN 26 H Random Glucose 344 H* Calcium 7.6 L Crossmatch See Detail a/p POD 1 R femora nail -oob/PT/WBAT -pain control, minimize narcotics -DVT proph -finish ABX -f/u HCT -post op fever wnl at this point, no need for workup
[2017-12-31] MEDS: CALCIUM 500MG/VIT-D 200 UNITS COMBO TABLET (FP) PO SCH (18:34)
[2017-12-31] MEDS ORDERED: PT OWN MED DRAWER 7, Y5N ONE (22:08)
[2017-12-31] MEDS: ATORVASTATIN CA 10 MG TABLET (FP) PO SCH (22:14)
[2018-01-01] MEDS: SODIUM CHLORIDE 1,000 ML IV SCH (00:15)
[2018-01-01] MEDS: oxyCODONE HCL 5 MG TABLET PO PRN (02:32)
[2018-01-01] MEDS: INSULIN SLIDING SCALE (NOVOLOG) 1 VIAL SQ SCH ×3 (06:38→17:12)
[2018-01-01] MEDS: INSULIN DETEMIR 100 UNITS/ML MDV SQ SCH ×2 (06:38→22:23)
[2018-01-01] MEDS: LEVOTHYROXINE NA 75 MCG TABLET (FP) PO SCH (06:39)
[2018-01-01] MEDS: DOCUSATE SODIUM 100 MG CAPSULE (FP) PO SCH ×3 (06:39→22:22)
[2018-01-01] MEDS ORDERED: PT OWN MED DRAWER 7, Y5N ONE (10:03)
[2018-01-01] MEDS: LISINOPRIL 20 MG TABLET (FP) PO SCH ×2 (10:14→22:22)
[2018-01-01] MEDS: METOPROLOL TARTRATE 50 MG TABLET (FP) PO SCH ×2 (10:14→22:22)
[2018-01-01] MEDS: CALCIUM 500MG/VIT-D 200 UNITS COMBO TABLET (FP) PO SCH (10:14)
[2018-01-01] MEDS: amLODIPine BESYLATE 10 MG TABLET (FP) PO SCH (10:14)
[2018-01-01] MEDS: ENOXAPARIN NA (PORCINE) 40 MG/0.4 ML DISP.SYRIN SQ SCH (10:14)
--- NOTE | 2018-01-01 11:21 | PN ---
Physical Exam: SUBJECTIVE: Patient seen and examined. Fearful to get oob to chair and place weight on R leg. States pain overnight. Ate breakfast this am. Refuses to void over bedpan. D/w daughter over the phone OBJECTIVE: Vital Signs Period Temp Pulse Resp BP Sys/Voss Pulse Ox Last 24 Hr 96.7 F-100.7 F 80-89 20-20 115-133/46-80 97 PE Neuro: alert, awake, cn 2-12intact Pulm: CTAB CV: s1 s2 2/6 systolic murmur Abd: s nt nd + bs Ext: R hip dressing x3 CDI + tenderness, +1 pitting edema b/l Laboratory Results - last 24 hr 12/31/17 12/31/17 01/01/18 11:14 16:46 06:35 POC Glucometer 320 308 340 Active Medications Generic Name Dose Route Start Last Admin Trade Name Freq PRN Reason Stop Dose Admin Acetaminophen 650 mg 12/30/17 19:05 Tylenol - PO Q6H PRN PAIN LEVEL 4 - 6 Amlodipine Besylate 10 mg 12/31/17 10:00 01/01/18 10:14 Norvasc - PO 10 mg DAILY RHIANNA Administration Atorvastatin Calcium 10 mg 12/30/17 22:00 12/31/17 22:14 Lipitor - PO 10 mg HS RHIANNA Administration Calcium Carbonate/Cholecalciferol 1 tab 12/31/17 17:15 01/01/18 10:14 Os-Natalio 500+D - PO 1 tab DAILY RHIANNA Administration Docusate Sodium 100 mg 12/30/17 22:00 01/01/18 06:39 Colace - PO 100 mg TID RHIANNA Administration Enoxaparin Sodium 40 mg 12/31/17 10:00 01/01/18 10:14 Lovenox - SQ 01/31/18 10:00 40 mg DAILY RHIANNA Administration Sodium Chloride 1,000 mls @ 42 mls/hr 12/31/17 15:40 01/01/18 00:15 Normal Saline - IV 42 mls/hr ASDIR RHIANNA Administration Insulin Aspart 1 vial 12/31/17 07:00 01/01/18 06:38 Novolog Vial Sliding Scale - SQ 8 units TIDAC RHIANNA Administration Protocol Insulin Detemir 18 units 12/31/17 07:00 01/01/18 06:38 Levemir Vial SQ 18 units AM RHIANNA Administration Levothyroxine Sodium 75 mcg 12/31/17 07:00 01/01/18 06:39 Synthroid - PO 75 mcg AM RHIANNA Administration Lisinopril 20 mg 12/30/17 22:00 01/01/18 10:14 Prinivil PO 20 mg BID RHIANNA Administration Metoprolol Tartrate 50 mg 12/30/17 22:00 01/01/18 10:14 Lopressor - PO 50 mg BID RHIANNA Administration Morphine Sulfate 2 mg 12/30/17 20:05 12/31/17 05:43 Morphine Injection - IVPUSH 2 mg Q4H PRN Administration breakthrough Ondansetron HCl 4 mg 12/30/17 19:05 Zofran Injection IVPUSH Q6H PRN NAUSEA AND/OR VOMITING Oxycodone HCl 5 mg 12/30/17 19:34 01/01/18 02:32 Roxicodone - PO 5 mg Q6H PRN Administration PAIN LEVEL 1-5 Assessment: 87 year old female admitted s/p fall Plan: 1. Right femoral shaft fracture s/p fall - s/p ORIF r hip - Lovenox 40mg daily - PT daily - SNF for rehab - Incentive spirometry 2. Urinary retention - Straight cath last night - Today continue voiding trail, pt oob to chair now - Replace catheter as needed 3. DEVONTE on CKD - Cr wnl - Continue fluids 42cc/hr - Poor po intake 4. DM II, uncontrolled - Elevated AM sugars - Increase home levemir 18 units BID - ISS, BGM ACHS 5. Hypothyroid - Synthroid 75mcg 6. HTN - Stable - Continue lisinopril, amlodipine, metoprolol 7. HLD - Statin 8. Hypomagnesemia - Resolved 9. s/p r carotid endarterectomy 10. DVT - lovenox Visit type - Emergency Visit Emergency Visit: Yes ED Registration Date: 12/29/17 Care time: The patient presented to the Emergency Department on the above date and was hospitalized for further evaluation of their emergent condition. - New Patient This patient is new to me today: No - Critical Care Critical Care patient: No
--- NOTE | 2018-01-01 11:58 | PN ---
Progress Note (short form) - Note Progress Note: pt sitting up in chair Last Vital Signs Temp Pulse Resp BP Pulse Ox 99.5 F 89 20 115/64 97 01/01/18 05:59 01/01/18 05:59 01/01/18 05:59 01/01/18 05:59 12/31/17 22:00 RLE dressings with stable small spotting calves soft nt sens int to lt 2+ dp ehl fhl ta g s intact labs P a/p POD 2 R femoral nail -oob/PT/WBAT -pain control, minimize narcotics -DVT proph -f/u HCT -dispo planning
[2018-01-01 12:53] LABS: HEMOGLOBIN 8.4 GM/dL (10.7-15.3); MCH 28.9 pg (25.7-33.7); MCHC 33.7 g/dl (32.0-36.0); MEAN CELL VOLUME 85.5 fl (80-96); MEAN PLT VOLUME 8.5 fl (7.5-11.1); PLATELET COUNT 228 K/MM3 (134-434); RBC 2.93 M/mm3 (3.60-5.2); RDW 15.2 % (11.6-15.6); WHITE BLOOD COUNT 10.6 K/mm3 (4.0-10.0)
[2018-01-01 13:20] LABS: ANION GAP 12 (8-16); BLOOD UREA NITROGEN 29 mg/dL (7-18); CALCIUM 7.4 mg/dL (8.5-10.1); CHLORIDE 100 mmol/L (98-107); CO2 21 mmol/L (21-32); POTASSIUM 4.1 mmol/L (3.5-5.1); SODIUM 133 mmol/L (136-145)
[2018-01-01 13:22] LABS: GLUCOSE,RANDOM 331 mg/dL (74-106)
[2018-01-01] MEDS: ATORVASTATIN CA 10 MG TABLET (FP) PO SCH (22:22)
[2018-01-02] MEDS: INSULIN SLIDING SCALE (NOVOLOG) 1 VIAL SQ SCH ×4 (06:43→17:04)
[2018-01-02] MEDS: LEVOTHYROXINE NA 75 MCG TABLET (FP) PO SCH (06:43)
[2018-01-02] MEDS: DOCUSATE SODIUM 100 MG CAPSULE (FP) PO SCH ×3 (06:43→21:10)
[2018-01-02 07:22] LABS: HEMOGLOBIN 7.6 GM/dL (10.7-15.3); MCH 29.2 pg (25.7-33.7); MCHC 34.4 g/dl (32.0-36.0); MEAN CELL VOLUME 84.9 fl (80-96); MEAN PLT VOLUME 8.2 fl (7.5-11.1); PLATELET COUNT 189 K/MM3 (134-434); RBC 2.59 M/mm3 (3.60-5.2); RDW 14.9 % (11.6-15.6)
[2018-01-02 07:42] LABS: BLOOD UREA NITROGEN 28 mg/dL (7-18); CHLORIDE 104 mmol/L (98-107); GLUCOSE,RANDOM 173 mg/dL (74-106); POTASSIUM 3.6 mmol/L (3.5-5.1); SODIUM 137 mmol/L (136-145)
[2018-01-02 07:44] LABS: ANION GAP 6 (8-16); CALCIUM 7.3 mg/dL (8.5-10.1); CO2 27 mmol/L (21-32); CREATININE 0.9 mg/dL (0.55-1.02)
[2018-01-02] MEDS ORDERED: INSULIN (NOVOLOG) ASPART 100 UNITS/ML 10ML VIAL ONE ×3 (08:02→19:55)
[2018-01-02] MEDS: SODIUM CHLORIDE 1,000 ML IV SCH ×2 (09:40→17:58)
[2018-01-02] MEDS: ENOXAPARIN NA (PORCINE) 40 MG/0.4 ML DISP.SYRIN SQ SCH (09:47)
[2018-01-02] MEDS: CALCIUM 500MG/VIT-D 200 UNITS COMBO TABLET (FP) PO SCH (09:47)
[2018-01-02] MEDS: INSULIN DETEMIR 100 UNITS/ML MDV SQ SCH (09:47)
[2018-01-02] MEDS ORDERED: sitaGLIPtin PHOSPHATE 100 MG TABLET (FP) PO SCH ×2 (10:15)
[2018-01-02] MEDS: MORPHINE SULFATE 10 MG/1 ML *VIAL IVPUSH PRN (10:41)
--- NOTE | 2018-01-02 10:49 | PN ---
Progress Note, Physician Chief Complaint: Pt lying in bed in no acute distress. Reports incisional discomfort and unable to void. Otherwise, no complaints. Denies any chest pain, sob, n/v/d. - Current Medication List Current Medications: Active Medications Acetaminophen (Tylenol -) 500 mg PO Q6H [facility] Amlodipine Besylate (Norvasc -) 10 mg PO DAILY [facility] Last Admin: 01/01/18 10:14 Dose: 10 mg Atorvastatin Calcium (Lipitor -) 10 mg PO HS [facility] Last Admin: 01/01/18 22:22 Dose: 10 mg Calcium Carbonate/Cholecalciferol (Os-Natalio 500+D -) 1 tab PO DAILY [facility] Last Admin: 01/02/18 09:47 Dose: 1 tab Celecoxib (Celebrex -) 200 mg PO DAILY [facility] Stop: 01/05/18 10:44 Docusate Sodium (Colace -) 100 mg PO TID [facility] Last Admin: 01/02/18 06:43 Dose: 100 mg Enoxaparin Sodium (Lovenox -) 40 mg SQ DAILY [facility] Stop: 01/31/18 10:00 Last Admin: 01/02/18 09:47 Dose: 40 mg Ferrous Sulfate (Feosol -) 325 mg PO BID [facility] Glyburide (Diabeta -) 10 mg PO BIDAC [facility] Sodium Chloride (Normal Saline -) 1,000 mls @ 42 mls/hr IV ASDIR [facility] Last Admin: 01/02/18 09:40 Dose: 42 mls/hr Insulin Aspart (Novolog Vial Sliding Scale -) 1 vial SQ TIDAC [facility] PRN Reason: Protocol Last Admin: 01/02/18 06:43 Dose: 4 units Insulin Detemir (Levemir Vial) 18 units SQ ACBK [facility] Levothyroxine Sodium (Synthroid -) 75 mcg PO AM [facility] Last Admin: 01/02/18 06:43 Dose: 75 mcg Lisinopril (Prinivil) 20 mg PO BID [facility] Last Admin: 01/01/18 22:22 Dose: 20 mg Metformin HCl (Glucophage -) 1,000 mg PO BIDAC [facility] Metoprolol Tartrate (Lopressor -) 50 mg PO BID [facility] Last Admin: 01/01/18 22:22 Dose: 50 mg Ondansetron HCl (Zofran Injection) 4 mg IVPUSH Q6H PRN PRN Reason: NAUSEA AND/OR VOMITING Pioglitazone HCl (Actos -) 30 mg PO ACBK [facility] Sitagliptin Phosphate (Januvia -) 100 mg PO DAILY@0700 [facility] - Objective Vital Signs: Vital Signs Temperature 99.9 F H 01/02/18 09:03 Pulse Rate 90 01/02/18 09:03 Respiratory Rate 20 01/02/18 09:03 Blood Pressure 129/50 01/02/18 09:03 O2 Sat by Pulse Oximetry (%) 97 12/31/17 22:00 Constitutional: Yes: Well Nourished, No Distress Cardiovascular: Yes: WNL, Regular Rate and Rhythm, Murmur. No: Bruit, Gallop, Rub Respiratory: Yes: WNL, Regular, CTA Bilaterally. No: Tachypnea, Wheezes Gastrointestinal: Yes: WNL, Normal Bowel Sounds, Soft, Abdomen, Obese. No: Distention, Tenderness Edema: Yes Edema: LLE: Trace, RLE: 1+ Wound/Incision: Yes: Dressing Dry and Intact Neurological: Yes: Alert, Oriented Psychiatric: Yes: Alert, Oriented Labs: CBC, BMP 01/02/18 06:35 01/02/18 06:35 INR, PTT INR 1.22 (0.82-1.09) H 12/30/17 06:40 Problem List - Problems (1) Right femoral shaft fracture Code(s): S72.301A - UNSP FRACTURE OF SHAFT OF RIGHT FEMUR, INIT FOR CLOS FX Qualifiers: Encounter type: initial encounter Fracture type: closed Fracture morphology: other fracture Qualified Code(s): S72.391A - Other fracture of shaft of right femur, initial encounter for closed fracture (2) Fall at home Code(s): W19.XXXA - UNSPECIFIED FALL, INITIAL ENCOUNTER; Y92.009 - UNSP PLACE IN UNSP NON-INSTITUT (PRIVATE) RESIDENCE PLACE Qualifiers: Encounter type: initial encounter Qualified Code(s): W19.XXXA - Unspecified fall, initial encounter; Y92.009 - Unspecified place in unspecified non-institutional (private) residence as the place of occurrence of the external cause; Y92.009 - Unspecified place in unspecified non-institutional ( private) residence as the place of occurrence of the external cause (3) Diabetes mellitus Code(s): E11.9 - TYPE 2 DIABETES MELLITUS WITHOUT COMPLICATIONS Qualifiers: Diabetes mellitus type: type 2 Diabetes mellitus complication status: with kidney complications Diabetes mellitus complication detail: with chronic kidney disease Diabetes mellitus residential insulin use: with residential use Chronic kidney disease stage: stage 2 (mild) Qualified Code(s): E11.22 - Type 2 diabetes mellitus with diabetic chronic kidney disease; N18.2 - Chronic kidney disease, stage 2 (mild); N18.2 - Chronic kidney disease, stage 2 (mild); Z79.4 - high wire artist (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) 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 of insulin; Z79.4 - high wire artist (current) use of insulin; Z79.4 - FPC (current) use of insulin; Z79.4 - high wire artist (current ) use of insulin (4) CKD (chronic kidney disease) stage 2, GFR 60-89 ml/min Code(s): N18.2 - CHRONIC KIDNEY DISEASE, STAGE 2 (MILD) (5) HTN (hypertension) Code(s): I10 - ESSENTIAL (PRIMARY) HYPERTENSION Qualifiers: Hypertension type: essential hypertension Qualified Code(s): I10 - Essential (primary) hypertension (6) Hypothyroidism Code(s): E03.9 - HYPOTHYROIDISM, UNSPECIFIED (7) Obesity Code(s): E66.9 - OBESITY, UNSPECIFIED Qualifiers: Obesity type: due to excess calories Obesity classification: adult class 2 (BMI 35 - 39.9) Body mass index: BMI 36.0-36.9 (8) Hyperlipidemia Code(s): E78.5 - HYPERLIPIDEMIA, UNSPECIFIED (9) History of carotid endarterectomy Code(s): Z98.890 - OTHER SPECIFIED POSTPROCEDURAL STATES (10) Anemia Code(s): D64.9 - ANEMIA, UNSPECIFIED Qualifiers: Anemia type: other cause Other causes of anemia: acute posthemorrhagic Qualified Code(s): D62 - Acute posthemorrhagic anemia (11) Hypomagnesemia Code(s): E83.42 - HYPOMAGNESEMIA (12) Hypokalemia Code(s): E87.6 - HYPOKALEMIA (13) Acute urinary retention Code(s): R33.8 - OTHER RETENTION OF URINE Assessment/Plan (1) Right femoral shaft fracture Assessment/Plan: s/p ORIF right hip PT Incentive spirometer when awake tylenol/celebrex for pain control ortho following Code(s): S72.301A - UNSP FRACTURE OF SHAFT OF RIGHT FEMUR, INIT FOR CLOS FX Qualifiers: Encounter type: initial encounter Fracture type: closed Fracture morphology: other fracture Qualified Code(s): S72.391A - Other fracture of shaft of right femur, initial encounter for closed fracture (2) Fall at home Assessment/Plan: mechanical, right hip fx head ct/ chest xray neg fall precautions Code(s): W19.XXXA - UNSPECIFIED FALL, INITIAL ENCOUNTER; Y92.009 - UNSP PLACE IN UNSP NON-INSTITUT (PRIVATE) RESIDENCE PLACE Qualifiers: Encounter type: initial encounter Qualified Code(s): W19.XXXA - Unspecified fall, initial encounter; Y92.009 - Unspecified place in unspecified non-institutional (private) residence as the place of occurrence of the external cause; Y92.009 - Unspecified place in unspecified non-institutional ( private) residence as the place of occurrence of the external cause (3) Anemia Assessment/Plan: Drop in h/h today, mildly hypotensive and tachycardic hr 90s discussed with Ortho transfuse 1unit prbcs monitor cbc Code(s): D64.9 - ANEMIA, UNSPECIFIED Qualifiers: Anemia type: other cause Other causes of anemia: acute posthemorrhagic Qualified Code(s): D62 - Acute posthemorrhagic anemia (4) CKD (chronic kidney disease) stage 2, GFR 60-89 ml/min Assessment/Plan: acute on chronic improved IVF will monitor Code(s): N18.2 - CHRONIC KIDNEY DISEASE, STAGE 2 (MILD) (5) Diabetes mellitus Assessment/Plan: uncontrolled, gfr borderline 60, +proteinuria, glycosuria HgA1c 8.4 Pt on ELIZABETH-I for renal protection restart oral antihyperglycemic agents BGM levemir 18units daily insulin sliding scale Code(s): E11.9 - TYPE 2 DIABETES MELLITUS WITHOUT COMPLICATIONS Qualifiers: Diabetes mellitus type: type 2 Diabetes mellitus complication status: with kidney complications Diabetes mellitus complication detail: with chronic kidney disease Diabetes mellitus senior production manager insulin use: with residential use Chronic kidney disease stage: stage 2 (mild) Qualified Code(s): E11.22 - Type 2 diabetes mellitus with diabetic chronic kidney disease; N18.2 - Chronic kidney disease, stage 2 (mild); N18.2 - Chronic kidney disease, stage 2 (mild); Z79.4 - high wire artist (current) use of insulin; Z79.4 - high wire artist (current) use of insulin; Z79.4 - FPC (current) use of insulin; Z79.4 - FPC (current ) use of insulin (6) HTN (hypertension) Assessment/Plan: controlled continue lisinopril, amlodipine, metoprol low na diab diet Code(s): I10 - ESSENTIAL (PRIMARY) HYPERTENSION Qualifiers: Hypertension type: essential hypertension Qualified Code(s): I10 - Essential (primary) hypertension (7) Hypothyroidism Assessment/Plan: chronic, stable continue levothyroxine Code(s): E03.9 - HYPOTHYROIDISM, UNSPECIFIED (8) Obesity Assessment/Plan: BMI 36 incorporate life style modifications low na diab diet Code(s): E66.9 - OBESITY, UNSPECIFIED Qualifiers: Obesity type: due to excess calories Obesity classification: adult class 2 (BMI 35 - 39.9) Body mass index: BMI 36.0-36.9 (9) Hyperlipidemia Assessment/Plan: chronic continue lipitor low fat diet Code(s): E78.5 - HYPERLIPIDEMIA, UNSPECIFIED (10) History of carotid endarterectomy Assessment/Plan: s/p r carotid endarterectomy cardiology clearance done Code(s): Z98.890 - OTHER SPECIFIED POSTPROCEDURAL STATES (11) Hypomagnesemia Assessment/Plan: resolved Code(s): E83.42 - HYPOMAGNESEMIA (12) Hypokalemia Assessment/Plan: K3.6 po potassium 40meq ordered Code(s): E87.6 - HYPOKALEMIA (13) Acute urinary retention Assessment/Plan: Pt failed trial of void pt unable to void straightcath prn monitor bladder scan q6hrs encourage ambulation bowel regimen Code(s): R33.8 - OTHER RETENTION OF URINE Assessment/Plan Dispo: SNF for rehabilitation post-op
[2018-01-02] MEDS ORDERED: POTASSIUM CHLORIDE TABS 20 MEQ TABLET.ER (FP) PO ONE (11:15)
[2018-01-02] MEDS: amLODIPine BESYLATE 10 MG TABLET (FP) PO SCH (11:31)
[2018-01-02] MEDS: METOPROLOL TARTRATE 50 MG TABLET (FP) PO SCH ×2 (11:31→21:10)
[2018-01-02] MEDS: LISINOPRIL 20 MG TABLET (FP) PO SCH ×2 (11:31→21:10)
[2018-01-02] MEDS: metFORMIN HCL 500 MG TABLET (FP) PO SCH ×2 (11:42→17:57)
[2018-01-02] MEDS: CELECOXIB 200 MG CAPSULE PO SCH ×2 (11:43→17:59)
[2018-01-02] MEDS: glyBURIDE 5 MG TABLET (UD) PO SCH ×2 (11:43→17:57)
[2018-01-02] MEDS: PIOGLITAZONE HCL 30 MG TABLET (FP) PO SCH (11:43)
[2018-01-02] MEDS: ACETAMINOPHEN 500 MG TABLET (FP) PO SCH ×2 (12:39→17:56)
[2018-01-02] MEDS: POLYETHYLENE GLYCOL 3350 119 GM BTL PO SCH ×2 (17:58→21:10)
--- NOTE | 2018-01-02 18:27 | PN ---
Progress Note (short form) - Note Progress Note: pt sitting up in bed pain slightly improved Last Vital Signs Temp Pulse Resp BP Pulse Ox 99.2 F 95 H 18 135/50 96 01/02/18 14:00 01/02/18 14:00 01/02/18 14:00 01/02/18 14:00 01/02/18 10:00 RLE dressings with stable small spotting calves soft nt sens int to lt 2+ dp ehl fhl ta g s intact Laboratory Results - last 24 hr 12/29/17 01/02/18 01/02/18 12:46 06:35 06:35 WBC 8.0 RBC 2.59 L Hgb 7.6 L Hct 22.0 L MCV 84.9 MCH 29.2 MCHC 34.4 RDW 14.9 Plt Count 189 MPV 8.2 Sodium 137 Potassium 3.6 Chloride 104 Carbon Dioxide 27 Anion Gap 6 L BUN 28 H Creatinine 0.9 POC Glucometer Random Glucose 173 H Calcium 7.3 L Blood Type O POSITIVE Antibody Screen Negative Crossmatch See Detail 01/02/18 01/02/18 01/02/18 06:39 11:35 12:10 WBC RBC Hgb Hct MCV MCH MCHC RDW Plt Count MPV Sodium Potassium Chloride Carbon Dioxide Anion Gap BUN Creatinine POC Glucometer 212 209 Random Glucose Calcium Blood Type O POSITIVE Antibody Screen Negative Crossmatch See Detail 01/02/18 01/02/18 13:47 17:02 WBC RBC Hgb Hct MCV MCH MCHC RDW Plt Count MPV Sodium Potassium Chloride Carbon Dioxide Anion Gap BUN Creatinine POC Glucometer 262 146 Random Glucose Calcium Blood Type Antibody Screen Crossmatch a/p POD 3 R femoral nail -oob/PT/WBAT -pain control, minimize narcotics -DVT proph -f/u HCT after transfusion -urology consult for persistent urinary retention after surgery -dispo planning
[2018-01-02] MEDS: FERROUS SO4 325 MG TABLET (FP) PO SCH (21:10)
[2018-01-02] MEDS: ATORVASTATIN CA 10 MG TABLET (FP) PO SCH (21:10)
[2018-01-03] MEDS: ACETAMINOPHEN 500 MG TABLET (FP) PO SCH ×3 (00:38→11:51)
[2018-01-03] MEDS ORDERED: PT OWN MED DRAWER 7, Y5N ONE ×2 (05:50→09:35)
[2018-01-03] MEDS ORDERED: INSULIN (NOVOLOG) ASPART 100 UNITS/ML 10ML VIAL ONE ×2 (05:58→11:45)
[2018-01-03] MEDS: PIOGLITAZONE HCL 30 MG TABLET (FP) PO SCH (06:28)
[2018-01-03] MEDS: DOCUSATE SODIUM 100 MG CAPSULE (FP) PO SCH (06:29)
[2018-01-03] MEDS: glyBURIDE 5 MG TABLET (UD) PO SCH (06:29)
[2018-01-03] MEDS: LEVOTHYROXINE NA 75 MCG TABLET (FP) PO SCH (06:29)
[2018-01-03] MEDS: metFORMIN HCL 500 MG TABLET (FP) PO SCH (06:29)
[2018-01-03] MEDS: INSULIN SLIDING SCALE (NOVOLOG) 1 VIAL SQ SCH ×2 (06:30→11:51)
[2018-01-03] MEDS ORDERED: INSULIN DETEMIR 100 UNITS/ML MDV SQ SCH (07:00)
[2018-01-03 08:27] LABS: BASO % 0.2 % (0-2.0); EOS % 0.4 % (0-4.5); HEMATOCRIT 24.9 % (32.4-45.2); HEMOGLOBIN 8.6 GM/dL (10.7-15.3); LYMPH % 15.2 % (8-40); MCH 29.9 pg (25.7-33.7); MCHC 34.6 g/dl (32.0-36.0); MEAN CELL VOLUME 86.3 fl (80-96); MEAN PLT VOLUME 7.9 fl (7.5-11.1); MONO % 11.1 % (3.8-10.2); NEUT % 73.1 % (42.8-82.8); PLATELET COUNT 211 K/MM3 (134-434); RBC 2.89 M/mm3 (3.60-5.2); RDW 14.9 % (11.6-15.6); WHITE BLOOD COUNT 7.3 K/mm3 (4.0-10.0)
--- NOTE | 2018-01-03 08:33 | CON.GU ---
Consult - History of Present Illness History of Present Illness: 87 yo female admitted s/p fall and had ORIF rt hip. Has had problems with urinary retention post op requiring straight cath several times. However overnight has voided twice and bladder sono this AM reveal post void residual of 120cc. Currently without any suprapubic discomfort. No prior history - Past Medical History Cardio/Vascular: Yes: CAD, HTN, Hyperlipdemia, Mitral Insufficiency Gastrointestinal: Yes: GERD, Hemorrhoids, Other (fatty liver ds) Musculoskeletal: Yes: Osteoarthritis Endocrine: Yes: Diabetes Mellitus (uncontrolled), Other (obesity) - Past Surgical History Past Surgical History: Yes: Carotid Endarterectomy (Right) - Alcohol/Substance Use Hx Alcohol Use: No History of Substance Use: reports: None - Smoking History Smoking history: Never smoked Have you smoked in the past 12 months: No - Social History History of Recent Travel: No Home Medications - Allergies Allergies/Adverse Reactions: Allergies Allergy/AdvReac Type Severity Reaction Status Date / Time No Known Allergies Allergy Verified 12/29/17 08:22 - Home Medications Home Medications: Ambulatory Orders Amlodipine Besylate 10 mg PO DAILY 12/29/17 Glyburide 10 mg PO BID 12/29/17 Insulin (Levemir) [Levemir Flexpen -] 18 units SQ DAILY 12/29/17 Levothyroxine [Synthroid -] 75 mcg PO DAILY 12/29/17 Lisinopril 20 mg PO BID 12/29/17 Metformin HCl [Glucophage] 1,000 mg PO BID 12/29/17 Metoprolol Tartrate 50 mg PO BID 12/29/17 Pioglitazone HCl [Actos] 30 mg PO DAILY 12/29/17 Pravastatin Sodium [Pravachol (Nf)] 40 mg PO HS 12/29/17 Sitagliptin Phosphate [Januvia] 100 mg PO DAILY 12/29/17 Family Disease History - Family Disease History Family Disease History: Diabetes: Father, Mother (liver ca ), Brother, [place]: Mother Review of Systems - Review of Systems Genitourinary: reports: No Symptoms, Lesions, Menses, Testicular Mass, Testicular Pain, Testicular Swelling. denies: Burning, Discharge, Dysuria, Flank Pain, Frequency, Hematuria, Pain, Urgency, Vaginal Bleeding, Other Physical Exam- Vital Signs: Vital Signs Temperature 98.0 F 01/03/18 06:00 Pulse Rate 80 01/03/18 06:00 Respiratory Rate 20 01/03/18 06:00 Blood Pressure 142/79 01/03/18 06:00 O2 Sat by Pulse Oximetry (%) 96 01/02/18 20:07 Renal/: Yes: Bladder Distention (non distended bladder) Labs: CBC, BMP 01/03/18 07:30 Problem List - Problems (1) Acute urinary retention Assessment/Plan: now voiding spontaneously with acceptable PVR. Observe Code(s): R33.8 - OTHER RETENTION OF URINE
[2018-01-03 08:51] LABS: ANION GAP 9 (8-16); BLOOD UREA NITROGEN 25 mg/dL (7-18); CALCIUM 7.3 mg/dL (8.5-10.1); CHLORIDE 105 mmol/L (98-107); CO2 24 mmol/L (21-32); GLUCOSE,RANDOM 205 mg/dL (74-106); MAGNESIUM 2.1 mg/dL (1.8-2.4); POTASSIUM 4.1 mmol/L (3.5-5.1); SODIUM 138 mmol/L (136-145)
[2018-01-03 08:54] LABS: CREATININE 0.8 mg/dL (0.55-1.02)
[2018-01-03] MEDS: ENOXAPARIN NA (PORCINE) 40 MG/0.4 ML DISP.SYRIN SQ SCH (09:39)
[2018-01-03] MEDS: CALCIUM 500MG/VIT-D 200 UNITS COMBO TABLET (FP) PO SCH (09:39)
[2018-01-03] MEDS: CELECOXIB 200 MG CAPSULE PO SCH (09:39)
[2018-01-03] MEDS: LISINOPRIL 20 MG TABLET (FP) PO SCH (09:40)
[2018-01-03] MEDS: amLODIPine BESYLATE 10 MG TABLET (FP) PO SCH (09:40)
[2018-01-03] MEDS: METOPROLOL TARTRATE 50 MG TABLET (FP) PO SCH (09:40)
[2018-01-03] MEDS: FERROUS SO4 325 MG TABLET (FP) PO SCH (09:40)
[2018-01-03] MEDS: POLYETHYLENE GLYCOL 3350 119 GM BTL PO SCH (09:40)
--- NOTE | 2018-01-03 10:08 | DS ---
Physical Examination Vital Signs: Vital Signs Temperature 98.0 F 01/03/18 06:00 Pulse Rate 80 01/03/18 06:00 Respiratory Rate 20 01/03/18 06:00 Blood Pressure 142/79 01/03/18 06:00 O2 Sat by Pulse Oximetry (%) 96 01/02/18 20:07 Constitutional: Yes: Well Nourished, No Distress Cardiovascular: Yes: WNL, Regular Rate and Rhythm, Murmur. No: Bruit, Gallop, Rub Respiratory: Yes: WNL, Regular, CTA Bilaterally. No: Rales, Rhonchi, SOB, Tachypnea, Wheezes Gastrointestinal: Yes: WNL, Normal Bowel Sounds, Soft, Abdomen, Obese. No: Distention, Tenderness Renal/: Yes: WNL Extremities: Yes: WNL Edema: Yes Edema: LLE: Trace, RLE: 1+ Neurological: Yes: WNL, Alert, Oriented ...Motor Strength: WNL Psychiatric: Yes: WNL, Alert, Oriented Labs: CBC, BMP 01/03/18 07:30 01/03/18 07:30 Discharge Summary Reason For Visit: FRACTURE OF SHAFT OF RIGHT FEMUR Current Active Problems Acute urinary retention (Acute) Anemia (Acute) CAD (coronary artery disease) (Acute) CKD (chronic kidney disease) stage 2, GFR 60-89 ml/min (Acute) Displaced subtrochanteric fracture of right femur, initial encounter for closed fracture (Acute) Fall at home (Acute) History of carotid endarterectomy (Acute) Hyperglycemia (Acute) Hyperlipidemia (Acute) Hypokalemia (Acute) Hypomagnesemia (Acute) Right femoral shaft fracture (Acute) Hospital Course: is a pleasant 87 year old female who came in s/p fall, right femoral fracture, s/p ORIF r hip. Her stay was uncomplicated. Post op, she had acute urinary retention which resolved. She was also transfused 1unit prbcs for hg<8, since transfusion hg stable. Her pain has been adequately controlled on tylenol , celebrex. She has been working well with PT without sig difficulty. She is medically cleared for discharge to SNF for further rehabilitation. Continue lovenox x 1 month. Follow ups as directed in discharge directions. Condition: Stable - Instructions Diet, Activity, Other Instructions: Dr Rutherford. discharge instructions Weight bearing as tolerated with walker. CONTNIUE LOVENOX 40mg SQ daily x 4 weeks post op to prevent blood clots. Keep dressing clean and dry until the sutures are removed by your surgeon in the office. 6. Call your surgeon AT ONCE if you have problems with: a. Bleeding b. Urinating c. Excessive pain Physician Appointment: Follow up with Krish in [] 7Days [] 10 Days [X]2 Weeks [place] or [place] Please Call to confirm you appointment Referrals: Cisco Rutherford MD [Staff Physician] - 2 Weeks Anand Alvarez MD [Primary Care Provider] - 1 Week Disposition: INTERMEDIATE FACILITY - Home Medications Comprehensive Discharge Medication List: Ambulatory Orders Amlodipine Besylate 10 mg PO DAILY 12/29/17 Glyburide 10 mg PO BID 12/29/17 Insulin (Levemir) [Levemir Flexpen -] 18 units SQ DAILY 12/29/17 Levothyroxine [Synthroid -] 75 mcg PO DAILY 12/29/17 Lisinopril 20 mg PO BID 12/29/17 Metformin HCl [Glucophage] 1,000 mg PO BID 12/29/17 Metoprolol Tartrate 50 mg PO BID 12/29/17 Pioglitazone HCl [Actos] 30 mg PO DAILY 12/29/17 Pravastatin Sodium [Pravachol -] 40 mg PO HS 12/29/17 Sitagliptin Phosphate [Januvia] 100 mg PO DAILY 12/29/17 Calcium 500Mg/Vit-D 200 Units [Os-Natalio 500+D -] 1 tab PO DAILY tab 01/03/18 Docusate Sodium [Colace -] 100 mg PO TID capsule 01/03/18 Enoxaparin [Lovenox -] 40 mg SQ DAILY 30 Days disp.syrin 01/03/18 Ferrous Sulfate [Feosol] 325 mg PO BID ud 01/03/18
[2018-01-03 12:55] VITALS: PULSE 79
[2018-01-03 14:05] VITALS: BP 117/53; TEMP 98.5
== END 2018-01-03 14:00 | DRG 481 ==
LOC: JER 08:13 → JERBED 11:03 → J6S 15:33
PROVIDERS: ADMIT Internal Medicine; ATTEND Nurse Practitioner Family
PROC: 0QS606Z Reposition Right Upper Femur with Intramedullary Internal Fixation Device, Open Approach (ICD-10-PCS; principal; 2017-12-29)
PROC: 0T9B70Z Drainage of Bladder with Drainage Device, Via Natural or Artificial Opening (ICD-10-PCS; 2017-12-29)
DX: S72.144A Nondisplaced intertrochanteric fracture of right femur, initial encounter for closed fracture (principal); N17.9 Acute kidney failure, unspecified; D62 Acute posthemorrhagic anemia; E11.65 Type 2 diabetes mellitus with hyperglycemia; S72.21XA Displaced subtrochanteric fracture of right femur, initial encounter for closed fracture; R33.8 Other retention of urine; I12.9 Hypertensive chronic kidney disease with stage 1 through stage 4 chronic kidney disease, or unspecified chronic kidney disease; E83.42 Hypomagnesemia; E87.6 Hypokalemia; N18.2 Chronic kidney disease, stage 2 (mild); K76.0 Fatty (change of) liver, not elsewhere classified; Z79.4 Long term (current) use of insulin; Z86.73 Personal history of transient ischemic attack (TIA), and cerebral infarction without residual deficits; Y93.89 Activity, other specified; Y92.018 Other place in single-family (private) house as the place of occurrence of the external cause; Y99.8 Other external cause status; W01.0XXA Fall on same level from slipping, tripping and stumbling without subsequent striking against object, initial encounter; K21.9 Gastro-esophageal reflux disease without esophagitis; E66.9 Obesity, unspecified; Z68.36 Body mass index [BMI] 36.0-36.9, adult; E03.9 Hypothyroidism, unspecified; E78.00 Pure hypercholesterolemia, unspecified; D64.9 Anemia, unspecified
CPT/HCPCS: 36415; 36430; 70450-TC; 71045-TC-FY; 73523-TC-FY; 73552-TC-RT-FY; 76000-TC-FY; 80048; 80053; 81003; 81015; 82550; 82962; 83036; 83735; 84100; 84484; 85025; 85027; 85610; 86850; 86900; 86901; 86922; 87086; 93005; 93010; 94010; 94760; 97116-GP; 97162-GP; 99285-25; J1644; P9038; P9058

== ENCOUNTER 2018-05-13 08:34 | Emergency (ER) | payer OTHER, MEDICARE ==
[2018-05-13 08:37] VITALS: BP 135/58; PULSE 76; TEMP 98.3; BMI 34.5
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
== END 2018-05-13 09:44 | disposition home or self-care (01) ==
LOC: JERFT 08:34
DX: Z09 Encounter for follow-up examination after completed treatment for conditions other than malignant neoplasm (principal); T21.22XD Burn of second degree of abdominal wall, subsequent encounter; X10.0XXD Contact with hot drinks, subsequent encounter
CPT/HCPCS: 99281-25

== ENCOUNTER 2019-10-24 08:49 | Emergency (ER) | payer OTHER, MEDICARE ==
[2019-10-24 08:59] VITALS: BP 143/45; PULSE 76; TEMP 98; BMI 33.6
--- NOTE | 2019-10-24 10:16 | PDOC ---
History of Present Illness - General Chief Complaint: Injury Stated Complaint: FALL Time Seen by Provider: 10/24/19 09:29 History Source: Patient, Family Exam Limitations: No Limitations Past History - Past Medical History Allergies/Adverse Reactions: Allergies Allergy/AdvReac Type Severity Reaction Status Date / Time No Known Allergies Allergy Verified 10/24/19 08:59 Home Medications: Ambulatory Orders Amlodipine Besylate 10 mg PO DAILY 12/29/17 Levothyroxine [Synthroid -] 75 mcg PO DAILY 12/29/17 Lisinopril 20 mg PO BID 12/29/17 Metformin HCl [Glucophage] 1,000 mg PO BID 12/29/17 Metoprolol Tartrate 50 mg PO BID 12/29/17 Pioglitazone HCl [Actos] 30 mg PO DAILY 12/29/17 Pravastatin Sodium [Pravachol -] 40 mg PO DAILY 12/29/17 Sitagliptin Phosphate [Januvia] 100 mg PO DAILY 12/29/17 Glimepiride 2 mg PO DAILY 05/11/18 Silver Sulfadiazine 1% Top Cr [Silvadene -] 1 applic TP DAILY #1 jar 05/11/18 Sulfamethoxazole/Trimethoprim [Bactrim Ds -] 1 tab PO BID #13 tablet 05/11/18 CVA: Yes COPD: No Diabetes: Yes (IDDM) HTN: Yes Hypercholesterolemia: Yes - Surgical History Cardiac Surgery: Yes (CAROTID ENDARDERECTOMY) - Immunization History Immunization Up to Date: Yes - Psycho Social/Smoking Cessation Hx Smoking History: Never smoked Have you smoked in the past 12 months: No Information on smoking cessation initiated: No Hx Alcohol Use: No Drug/Substance Use Hx: No Substance Use Type: None Hx Substance Use Treatment: No *Physical Exam - Vital Signs Last Vital Signs Temp Pulse Resp BP Pulse Ox 98 F 76 19 143/45 L 100 10/24/19 08:57 10/24/19 08:57 10/24/19 08:57 10/24/19 08:57 10/24/19 08:57 - Physical Exam General Appearance: No: Apparent Distress Extremity: positive: Other (around 8x2 cm irregular laceration along R lower vela, slight oozing from wound, +large ecchymosis, RLE neurovascularly intact) Neurologic: positive: Alert Medical Decision Making - Medical Decision Making 89 y/o F hx of HTN, HLD, DM, CVA hypothyroid, GERD presents s/p injury to R vela yesterday. Patient tripped on last step while going down the stairs around 2:30 PM yesterday and got a cut on her R vela. She was seen at [facility] where she had negative xrays and was given tetanus. Was told they were unable to close the wound due to skin thinness. Patient was discharged on Keflex and advised to f/u in wound center tomorrow. Patient's son brought her to ED for wound evaluation (and second opinion). Patient is on baby aspirin and no other blood thinners. Denies fever Bleeding controlled with Surgicel Surgicel then removed Xerofrom dressing, sterile gauze and kerlix dressing Patient is already on abx Will give number for wound center stable for dc 10/24/19 10:11 Discharge - Discharge Information Problems reviewed: Yes Clinical Impression/Diagnosis: Skin laceration Condition: Stable Disposition: HOME - Admission No - Follow up/Referral Referrals: Roc Alvarez MD [Primary Care Provider] - 2 Days - Patient Discharge Instructions Patient Printed Discharge Instructions: DI for Open Laceration Additional Instructions: Thank you for choosing [facility]. It was a pleasure taking care of you. Please follow-up in wound care tomorrow - [phone] Continue taking the antibiotics as prescribed Return to the Emergency Department if your symptoms worsen or persist, you have fever, pustular discharge, redness, streaking or other concerning symptoms. - Post Discharge Activity
== END 2019-10-24 10:20 | disposition home or self-care (01) ==
LOC: JER 08:49
DX: S81.811D Laceration without foreign body, right lower leg, subsequent encounter (principal); W10.8XXA Fall (on) (from) other stairs and steps, initial encounter; Y93.89 Activity, other specified; Y92.018 Other place in single-family (private) house as the place of occurrence of the external cause; Y99.8 Other external cause status; I10 Essential (primary) hypertension; E78.5 Hyperlipidemia, unspecified; E11.9 Type 2 diabetes mellitus without complications; Z79.84 Long term (current) use of oral hypoglycemic drugs; E03.9 Hypothyroidism, unspecified; K21.9 Gastro-esophageal reflux disease without esophagitis; Z86.73 Personal history of transient ischemic attack (TIA), and cerebral infarction without residual deficits
CPT/HCPCS: 99281-25

== ENCOUNTER 2019-10-25 16:32 | Inpatient (IN) | payer OTHER, MEDICARE ==
--- NOTE | 2019-10-25 16:54 | PDOC ---
Rapid Medical Evaluation Time Seen by Provider: 10/25/19 16:51 Medical Evaluation: Allergies Allergy/AdvReac Type Severity Reaction Status Date / Time No Known Allergies Allergy Verified 10/24/19 08:59 10/25/19 16:52 I have performed a brief in-person evaluation of this patient. The patient presents with a chief complaint of: wound requiring debridement by Dr Ruiz, on keflex Pertinent physical exam findings: vss, fully clothed with covered wound I have ordered the following: preop w/u The patient will proceed to the ED for further evaluation. Discharge Disposition - Diagnosis Leg wound, right - Discharge Dispostion Condition at time of disposition: Stable - Referrals - Patient Instructions - Post Discharge Activity
--- NOTE | 2019-10-25 17:23 | PDOC ---
History of Present Illness - General Chief Complaint: Wound Stated Complaint: R/WHITLEY/INJURY Time Seen by Provider: 10/25/19 16:51 - History of Present Illness Initial Comments: The pt is an 89F w/ a history of T2DM, HTN, hypothyroidism, CAD, HLD who presents for evaluation of a right lower extremity wound. The pt was sent in by Dr. Becerril for surgery tomorrow w/ Dr. Ruiz. The pt reports falling on 10/23/19 at 1400. She scraped her right leg and was sent to wound care. Today the wound was evaluated and found to have a large clot overlying the wound with deep tissue involvement. The wound was dressed at that time with instructions not to undress the wound in the ED tonight. The pt denies fevers/chills, chest pain, trouble breathing, spreading erythema, or changes in sensation of the leg. She has been able to ambulate since that time with her cane. 10/25/19 17:45 Past History - Past Medical History Allergies/Adverse Reactions: Allergies Allergy/AdvReac Type Severity Reaction Status Date / Time No Known Allergies Allergy Verified 10/25/19 16:53 Home Medications: Ambulatory Orders Amlodipine Besylate 10 mg PO DAILY 12/29/17 Levothyroxine [Synthroid -] 75 mcg PO DAILY 12/29/17 Metformin HCl [Glucophage] 1,000 mg PO BID 12/29/17 Metoprolol Tartrate 50 mg PO BID 12/29/17 Pioglitazone HCl [Actos] 30 mg PO DAILY 12/29/17 Pravastatin Sodium [Pravachol -] 40 mg PO DAILY 12/29/17 Sitagliptin Phosphate [Januvia] 100 mg PO DAILY 12/29/17 Glimepiride 2 mg PO DAILY 05/11/18 Cephalexin [Keflex] 1 tab PO DAILY 10/25/19 Valsartan 320 mg PO DAILY 10/25/19 CVA: Yes COPD: No Diabetes: Yes (IDDM) HTN: Yes Hypercholesterolemia: Yes - Surgical History Cardiac Surgery: Yes (CAROTID ENDARDERECTOMY) - Immunization History Immunization Up to Date: Yes - Psycho Social/Smoking Cessation Hx Smoking History: Never smoked Have you smoked in the past 12 months: No Hx Alcohol Use: No Drug/Substance Use Hx: No Substance Use Type: None Hx Substance Use Treatment: No Review of Systems - Review of Systems Able to Perform ROS?: Yes Comments:: GENERAL/CONSTITUTIONAL: No fever or chills. No weakness HEAD, EYES, EARS, NOSE AND THROAT: No change in vision. No change in hearing. No sore throat CARDIOVASCULAR: No chest pain or shortness of breath RESPIRATORY: Denies cough, hemoptysis GASTROINTESTINAL: No nausea, vomiting, diarrhea or constipation GENITOURINARY: No dysuria, frequency, or change in urination MUSCULOSKELETAL: No joint or muscle swelling or pain. No neck or back pain SKIN: +RLE anterior wound NEUROLOGIC: No headache, vertigo, loss of consciousness, or change in strength/ sensation ENDOCRINE: No increased thirst. No abnormal weight change HEMATOLOGIC/LYMPHATIC: No anemia, easy bleeding, or history of blood clots ALLERGIC/IMMUNOLOGIC: No hives or skin allergy 10/25/19 17:23 Is the patient limited Syriac proficient: No *Physical Exam - Vital Signs Last Vital Signs Temp Pulse Resp BP Pulse Ox 98.7 F 80 18 138/53 L 98 10/25/19 16:49 10/25/19 16:49 10/25/19 16:49 10/25/19 16:49 10/25/19 16:49 - Physical Exam GENERAL: Awake, alert, and oriented to person/place/time, in no acute distress HEAD: No signs of trauma, normocephalic, atraumatic EYES: PERRLA, EOMI, sclera anicteric, conjunctiva clear ENT: Hearing grossly normal, nares patent, oropharynx clear without exudates. Moist mucosa LUNGS: No distress, speaks in full sentences, clear to auscultation bilaterally HEART: Regular rate and rhythm, normal S1 and S2, systolic murmur appreciated, peripheral pulses normal and equal bilaterally ABDOMEN: Soft, nontender, normoactive bowel sounds. No guarding, no rebound EXTREMITIES: RLE wound dressing in place (C/D/I); Moves all extremities independently NEUROLOGICAL: Cranial nerves II through XII grossly intact. Normal speech, no focal sensorimotor deficits SKIN: Warm, Dry 10/25/19 17:23 ED Treatment Course - LABORATORY CBC & Chemistry Diagram: 10/25/19 17:19 10/25/19 17:19 - RADIOLOGY Radiograph Interpretation: RAD/CHEST X-RAY PORTABLE Single view of the chest is abnormal. Since 12/29/2017 there is a large heart, sclerotic unfolded aorta and slight rotation to the left. There are some congestive changes with some atelectatic changes at the bases. There may be some left pleural fluid. Correlation and follow-up recommended. 10/25/19 19:24 Medical Decision Making - Medical Decision Making The pt is an 89F w/ a history of DM who presents for evaluation of a right lower extremity wound. The pt was sent in by Dr. Becerril for RLE wound debridement tomorrow w/ Dr. Ruiz. ED Course Pre-op labs sent ECG CXR NPO after midnight Consult order placed for Dr. Ruiz 10/25/19 17:51 No leukocytosis Anemia noted, no indication to transfuse at this time Lytes unremarkable LFTs unremarkable ECG w/ NSR; HR 79; QTc 447; no axis deviation; LVH, TWI inferior leads which are age indeterminate 10/25/19 18:31 Microblog sent for admission, awaiting call back 10/25/19 18:41 CXR findings noted, will cancel IVF Pt signed out to [facility] admitting 10/25/19 20:01 Discharge - Discharge Information Problems reviewed: Yes Clinical Impression/Diagnosis: Leg wound, right Qualifiers: Encounter type: initial encounter Qualified Code(s): S81.801A - Unspecified open wound, right lower leg, initial encounter Condition: Stable - Admission Yes - Follow up/Referral Referrals: Roc Alvarez MD [Primary Care Provider] - - Patient Discharge Instructions - Post Discharge Activity
[2019-10-25 17:41] LABS: BASO % 0.4 % (0-2.0); EOS % 0.3 % (0-4.5); HEMOGLOBIN 8.9 GM/dL (10.7-15.3); LYMPH % 29.7 % (8-40); MCH 28.8 pg (25.7-33.7); MCHC 32.8 g/dl (32.0-36.0); MEAN CELL VOLUME 87.7 fl (80-96); MEAN PLT VOLUME 8.2 fl (7.5-11.1); MONO % 11.2 % (3.8-10.2); NEUT % 58.4 % (42.8-82.8); PLATELET COUNT 205 K/MM3 (134-434); RBC 3.08 M/mm3 (3.60-5.2); RDW 14.6 % (11.6-15.6); WHITE BLOOD COUNT 7.8 K/mm3 (4.0-10.0)
[2019-10-25 17:52] LABS: INR 1.14 (0.83-1.09); PROTHROMBIN TIME (PATIENT) 13.5 SEC (9.7-13.0)
--- NOTE | 2019-10-25 18:15 | PDOC ---
Documentation entered by Viridiana Pederson SCRIBE, acting as scribe for Lamar Hallman DO. Lamar Hallman DO: This documentation has been prepared by the jaya, Viridiana Pederson SCRIBE, under my direction and personally reviewed by me in its entirety. I confirm that the documentation accurately reflects all work, treatment, procedures, and medical decision making performed by me. Attending Attestation - Resident Resident Name: DarriushailyForestBlair - ED Attending Attestation I have performed the following: I have examined & evaluated the patient, The case was reviewed & discussed with the resident, I agree w/resident's findings & plan, Exceptions are as noted - HPI HPI: 10/25/19 18:08 The pt is an 89F w/ a history of DM who presents to the ED for a right lower extremity wound. The pt was sent in by Dr. Becerril for surgery tomorrow w/ Dr. Ruiz. The pt reports falling on [employer]. She scraped her right leg and was sent to wound care. Wound care evaluated the wound and found to have a large clot overlying the wound. The wound was dressed and was told not to undress it in the ER. She denies recent fevers, chills, headache or dizziness. She denies recent nausea, vomit, diarrhea or constipation. She denies recent dysuria, frequency, urgency or hematuria. She denies recent chest pain or shortness of breath. - Physicial Exam PE: 10/25/19 18:11 gen: aaox3, nad heart: +s1s2 reg, +systolic murmur lungs: cta b/l abd: soft, nt/nd +bs, obese ext: R anterior vela wound- seen at wound care 1 hour sfdc solution architect and had new dressing placed, dressing in dry, pulses intact b/l LE - Medical Decision Making 10/25/19 18:13 a/p: 89yo female sent from Wound care clinic for eval of R LE wound requiring surgery tomorrow -pt seen by Dr. Becerril earlier today -scheduled with Dr. Ruiz for surgery tomorrow -Dr. Guerrero is PMD -labs sent from [facility] reviewed -no elevated wbc -will need admission for surgery for RLE wound 10/25/19 19:31 congestive changes on cxr, small pleural effusion labs reviewed microblog sent to [facility] for admission pt on po keflex 10/25/19 20:04 resident discussed the case with [facility] who accepts pt to service Heart Score/ECG Review - ECG Intrepretation Comment:: 10/25/19 18:14 sinus at 79, nl axis, lvh, t wave inversions inferior leads which are age indeterminate, abnl ekg
[2019-10-25 18:16] LABS: ALBUMIN 3.4 g/dl (3.4-5.0); BILIRUBIN,TOTAL 0.5 mg/dL (0.2-1); BLOOD UREA NITROGEN 28.5 mg/dL (7-18); CALCIUM 8.6 mg/dL (8.5-10.1); POTASSIUM 3.7 mmol/L (3.5-5.1); TOT PROT 6.7 g/dl (6.4-8.2)
[2019-10-25] MEDS ORDERED: SODIUM CHLORIDE 0.9% 500 ML INFUS.BAG IV ONE (18:54)
[2019-10-25] MEDS ORDERED: INSULIN (NOVOLOG) ASPART 100 UNITS/ML 10ML VIAL SQ ONE (18:54)
--- NOTE | 2019-10-25 20:16 | PN ---
Teaching Attending Note Name of Resident: Omar Lewis ATTENDING PHYSICIAN STATEMENT I saw and evaluated the patient. I reviewed the resident's note and discussed the case with the resident. I agree with the resident's findings and plan as documented. SUBJECTIVE: Patient is an 89 year old woman with a PMH of NIDDM, HTN, Hypothyroidism, CAD and HLD who presents for evaluation of a right lower extremity wound. Patient was sent in by Dr. Becerril for surgery tomorrow with Dr. Ruiz. She reports falling on 10/23/19 at 1400. She scraped her right vela and was sent to wound care. Today the wound was evaluated and found to have a large clot overlying the wound with deep tissue involvement. The wound was dressed at that time with instructions not to undress the wound in the ER tonight. Patient denies fevers, chills, chest pain, SOB, spreading erythema, or changes in sensation of the leg. She has been able to ambulate since that time with her cane. No sick contacts or recent travel. Denies alcohol, tobacco or illicit drug use. OBJECTIVE: Alert Vital Signs Period Temp Pulse Resp BP Sys/Voss Pulse Ox Last 24 Hr 98.7 F 80 18 138/53 98 HEENT: No Jaundice, eye redness or discharge, PERRLA, EOMI. Normocephalic, atraumatic. External ears are normal and hearing is grossly intact. No nasal discharge. Neck: Supple, nontender. No palpable adenopathy or thyromegaly. No JVD Chest: Good effort. Clear to auscultation and percussion. Heart: Regular. No S3 or rub. 2/6 CORTEZ Abdomen: Not distended, soft, nontender and no HSM. No rebound or guarding. Normal bowel sounds. Ext: Peripheral pulses intact. No leg edema. RLE wound dressed. Distal motor and sensory function intact. Skin: Warm and dry. No petechiae, rash or ecchymosis. Neuro: Alert. Oriented x3. CN 2-12 grossly intact. Sensation grossly intact in all four extremities and DTR are symmetric. Psych: Appropriate mood and affect. Good insight. Home Medications Medication Instructions Recorded Amlodipine Besylate 10 mg PO DAILY 12/29/17 Levothyroxine [Synthroid -] 75 mcg PO DAILY 12/29/17 Metformin HCl [Glucophage] 1,000 mg PO BID 12/29/17 Metoprolol Tartrate 50 mg PO BID 12/29/17 Pioglitazone HCl [Actos] 30 mg PO DAILY 12/29/17 Pravastatin Sodium [Pravachol -] 40 mg PO DAILY 12/29/17 Sitagliptin Phosphate [Januvia] 100 mg PO DAILY 12/29/17 Glimepiride 2 mg PO DAILY 05/11/18 Cephalexin [Keflex] 1 tab PO DAILY 10/25/19 Valsartan 320 mg PO DAILY 10/25/19 Abnormal Lab Results 10/25/19 10/25/19 10/25/19 17:19 17:19 17:19 RBC 3.08 L Hgb 8.9 L Hct 27.0 L D Monocytes % 11.2 H PT with INR 13.50 H INR 1.14 H Anion Gap 6 L BUN 28.5 H Random Glucose 333 H AST 12 L ASSESSMENT AND PLAN: 1. Right vela wound - Will keep patient NPO after midnight for surgery. CXR shows cardiomegaly, bibasilar congestive changes and blunted left costophrenic angle. UA pending. EKG shows NSR with LVH and T wave inversion in III and aVF - no significant change from prior EKG. Consult cardiology for presurgical assessment. Will continue comprehensive care for all of patients comorbid conditions. 2. Uncontrolled DM For now, we will hold the home diabetes drugs and implement sliding scale insulin regimen. Provide comprehensive diabetes care with patient teaching and counseling about the importance of adherence to prescribed diabetes regimen, euglycemia, eye care and foot care. 3. DEVONTE - May be dehydrated due to osmotic diuresis. Will hydrate gently and monitor urine output. Avoid nephrotoxic agents such as NSAIDS, aminoglycosides, contrast dyes and certain Alternative medicine products. 4. Anemia - Cause unknown. Will do basic anemia work up including serial stool guaiacs, reticulocyte count and iron studies. Would benefit from Procrit therapy once iron replete. 5. Obesity Counseled on the risks associated with obesity. Will provide patient all the necessary assistance, counseling and positive reinforcement to facilitate weight loss. Consult compliance analyst. 6. Hypertension - Restart suitable outpatient antihypertensive drugs when clinically appropriate. Revise regimen to ensure [id number] excellent BP control and college and career counselor patient on the injurious effects of uncontrolled hypertension. Nonpharmacologic measures to control hypertension like weight loss , salt restriction and exercise discussed. Importance of adherence to treatment regimen and attainment of normotension emphasized. 7. DVT prophylaxis - SCD and early ambulation, since she is scheduled for surgery tomorrow. 8. Advance directives - Full code
--- NOTE | 2019-10-25 20:53 | HP ---
CHIEF COMPLAINT: RLE injury PCP:Roc Alvarez HISTORY OF PRESENT ILLNESS: 89 yo F PMH of HTN, HLD, DM , Hypothyroidism,s/p r presents to ED from Wound care for RLE injury. pt had a mechanical fall on 10/23 and injured her RLE resulting in a laceration. pt went to ED on 10/24 with instructions to return to wound care. at wound care pt was seen by Dr. Becerril who evaluated and scheduling the pt for surgery on 10/26. At the wound care clinic, the wound was evaluated and found to have a large clot overlying the wound with deep tissue involvement. pt states she has been able to ambulate with a cane, even after the fall. pt states she has tingling in her b/l feet but that it chronic. Pt denies dyspnea, dyspnea on exertion, chest pain, n/v. denies f/c/n/v. ER course was notable for: (1)cbc, cmp (2)glucose >300, insulin 4 u Recent Travel: denies PAST MEDICAL HISTORY: HTN, HLD, DM , Hypothyroidism,s/p r PAST SURGICAL HISTORY: carotid endarectomy R femur surgery Social History: Smoking:denies Alcohol:denies Drugs: denies Allergies No Known Allergies Allergy (Verified 10/25/19 16:53) HOME MEDICATIONS: Home Medications Medication Instructions Recorded Amlodipine Besylate 10 mg PO DAILY 12/29/17 Levothyroxine [Synthroid -] 75 mcg PO DAILY 12/29/17 Metformin HCl [Glucophage] 1,000 mg PO BID 12/29/17 Metoprolol Tartrate 50 mg PO BID 12/29/17 Pioglitazone HCl [Actos] 30 mg PO DAILY 12/29/17 Pravastatin Sodium [Pravachol -] 40 mg PO DAILY 12/29/17 Sitagliptin Phosphate [Januvia] 100 mg PO DAILY 12/29/17 Glimepiride 2 mg PO DAILY 05/11/18 Cephalexin [Keflex] 1 tab PO DAILY 10/25/19 Valsartan 320 mg PO DAILY 10/25/19 REVIEW OF SYSTEMS CONSTITUTIONAL: Absent: fever, chills, diaphoresis, generalized weakness, malaise, loss of appetite, weight change HEENT: Absent: rhinorrhea, nasal congestion, throat pain, throat swelling, difficulty swallowing, mouth swelling, ear pain, eye pain, visual changes CARDIOVASCULAR: Absent: chest pain, syncope, palpitations, irregular heart rate, lightheadedness , peripheral edema RESPIRATORY: Absent: cough, shortness of breath, dyspnea with exertion, orthopnea, wheezing, stridor, hemoptysis GASTROINTESTINAL: Absent: abdominal pain, abdominal distension, nausea, vomiting, diarrhea, constipation, melena, hematochezia GENITOURINARY: Absent: dysuria, frequency, urgency, hesitancy, hematuria, flank pain, genital pain MUSCULOSKELETAL: Present: RLE wound Absent: myalgia, arthralgia, joint swelling, back pain, neck pain SKIN: Absent: rash, itching, pallor HEMATOLOGIC/IMMUNOLOGIC: Absent: easy bleeding, easy bruising, lymphadenopathy, frequent infections ENDOCRINE: Absent: unexplained weight gain, unexplained weight loss, heat intolerance, cold intolerance NEUROLOGIC: Absent: headache, focal weakness or paresthesias, dizziness, unsteady gait, seizure, mental status changes, bladder or bowel incontinence PSYCHIATRIC: Absent: anxiety, depression, suicidal or homicidal ideation, hallucinations. PHYSICAL EXAMINATION Vital Signs - 24 hr 10/25/19 16:49 Temperature 98.7 F Pulse Rate 80 Respiratory 18 Rate Blood Pressure 138/53 L O2 Sat by Pulse 98 Oximetry (%) GENERAL: Awake, alert, and fully oriented, in no acute distress. obese female HEAD: Normal with no signs of trauma. EYES: Pupils equal, round and reactive to light, extraocular movements intact EARS, NOSE, THROAT:nares patent, oropharynx clear without exudates. Moist mucous membranes. NECK: Normal range of motion, supple without lymphadenopathy, JVD, or masses. LUNGS: Breath sounds equal, clear to auscultation bilaterally.b/l crackles at bases . No accessory muscle use. HEART: Regular rate and rhythm, + S1 and S2 . systolic murmur ABDOMEN: Soft, nontender, not distended, normoactive bowel sounds, no guarding, no rebound, no masses. MUSCULOSKELETAL: Normal range of motion at all joints. No bony deformities or tenderness. No CVA tenderness. UPPER EXTREMITIES: 2+ pulses, warm, well-perfused. No cyanosis. No clubbing. No peripheral edema. LOWER EXTREMITIES: 2+ pulses, warm, well-perfused. No calf tenderness. 2+ peripheral edema LLE, RLE wound dressing NEUROLOGICAL: Cranial nerves II-XII intact. Normal speech.gait not observed PSYCHIATRIC: Cooperative. Good eye contact. Appropriate mood and affect. SKIN: Warm, dry, normal turgor, no rashes or lesions noted, normal capillary refill. Laboratory Last Values WBC 7.8 K/mm3 (4.0-10.0) 10/25/19 17:19 RBC 3.08 M/mm3 (3.60-5.2) L 10/25/19 17:19 Hgb 8.9 GM/dL (10.7-15.3) L 10/25/19 17:19 Hct 27.0 % (32.4-45.2) L D 10/25/19 17:19 MCV 87.7 fl (80-96) 10/25/19 17: MCH 28.8 pg (25.7-33.7) 10/25/19 17: MCHC 32.8 g/dl (32.0-36.0) 10/25/19 17:19 RDW 14.6 % (11.6-15.6) 10/25/19 17:19 Plt Count 205 K/MM3 (134-434) 10/25/19 17:19 MPV 8.2 fl (7.5-11.1) 10/25/19 17:19 Absolute Neuts (auto) 4.6 K/mm3 (1.5-8.0) 10/25/19 17:19 Neutrophils % 58.4 % (42.8-82.8) 10/25/19 17:19 Lymphocytes % 29.7 % (8-40) 10/25/19 17:19 Monocytes % 11.2 % (3.8-10.2) H 10/25/19 17:19 Eosinophils % 0.3 % (0-4.5) 10/25/19 17:19 Basophils % 0.4 % (0-2.0) 10/25/19 17: Nucleated RBC % 0 % (0-0) 10/25/19 17:19 PT with INR 13.50 SEC (9.7-13.0) H 10/25/19 17:19 INR 1.14 (0.83-1.09) H 10/25/19 17:19 Sodium 137 mmol/L (136-145) 10/25/19 17:19 Potassium 3.7 mmol/L (3.5-5.1) 10/25/19 17:19 Chloride 104 mmol/L (98-107) 10/25/19 17:19 Carbon Dioxide 28 mmol/L (21-32) 10/25/19 17:19 Anion Gap 6 MMOL/L (8-16) L 10/25/19 17:19 BUN 28.5 mg/dL (7-18) H 10/25/19 17:19 Creatinine 1.0 mg/dL (0.55-1.3) 10/25/19 17:19 Est GFR (CKD-EPI)AfAm 58.25 10/25/19 17:19 Est GFR (CKD-EPI)NonAf 50.26 10/25/19 17:19 POC Glucometer 340 UNITS (80-120) 10/25/19 20:22 Random Glucose 333 mg/dL (74-106) H 10/25/19 17:19 Calcium 8.6 mg/dL (8.5-10.1) 10/25/19 17:19 Total Bilirubin 0.5 mg/dL (0.2-1) 10/25/19 17:19 AST 12 U/L (15-37) L 10/25/19 17:19 ALT 20 U/L (13-61) 10/25/19 17:19 Alkaline Phosphatase 70 U/L (45-117) 10/25/19 17:19 Total Protein 6.7 g/dl (6.4-8.2) 10/25/19 17:19 Albumin 3.4 g/dl (3.4-5.0) 10/25/19 17:19 Blood Type O POSITIVE 10/25/19 17:19 Antibody Screen Negative 10/25/19 17:19 -echo 01/2017: nl lv/rv size/fn. EF 65-70%. 1+ as. 1+ mac. mod phtn ASSESSMENT/PLAN: 89 yo F PMH of HTN, HLD, DM , Hypothyroidism, s/p rt CEA presents to ED from Wound care for RLE injury. pt is admitted to med/surg for optimization for RLE surgery RLE wound - pt scheduled for surgery with Dr. Ruiz ( plastics) - Surgery instructs: DO NOT REMOVE THE DRESSING - EKG reviewed - CXR : cardiomegaly, congestive changes HTN -continue on metoprolol 50 BID, valsartan 320, amlodipine 10 - cardiology recs appreciated for further optimization DM - BGM TIDAC - ISS - hold oral antiglycemics, hold lantus tonight HLD - continue statin Hypothyroidism - continue Synthroid 75 F/E/N -montor Lytes -NPO for procedure tomorrow Dispo: admit to med/surg Visit type - Emergency Visit Emergency Visit: Yes ED Registration Date: 10/25/19 Care time: The patient presented to the Emergency Department on the above date and was hospitalized for further evaluation of their emergent condition. - New Patient This patient is new to me today: Yes Date on this admission: 11/05/19 - Critical Care Critical Care patient: No ATTENDING PHYSICIAN STATEMENT I saw and evaluated the patient. I reviewed the resident's note and discussed the case with the resident. I agree with the resident's findings and plan as documented. SUBJECTIVE: OBJECTIVE: ASSESSMENT AND PLAN:
[2019-10-25 23:00] LABS: EPI CELLS 7.8 /HPF (0-5/HPF); HYALINE CASTS 6 /lpf (0-8); URINE APPEARANCE CLEAR; URINE BACTERIA 5.8 /hpf (NEGATIVE); URINE BILIRUBIN NEGATIVE (NEGATIVE); URINE COLOR YELLOW; URINE GLUCOSE (UA) 3+ (NEGATIVE); URINE KETONE NEGATIVE (NEGATIVE); URINE LEUK ESTERASE 1+ (NEGATIVE); URINE NITRITE NEGATIVE (NEGATIVE); URINE PROTEIN 1+ (NEGATIVE); URINE RBC 4 /hpf (0-4); URINE UROBILINOGEN 0.2 mg/dL (0.2-1.0); URINE WBC 12 /hpf (0-5)
[2019-10-25 23:04] LABS: ACTIVATED PTT 29.3 SECONDS (25.2-36.5)
[2019-10-26] MEDS: METOPROLOL TARTRATE 50 MG TABLET (FP) PO SCH ×3 (00:58→21:18)
[2019-10-26] MEDS: INSULIN SLIDING SCALE (NOVOLOG) 1 VIAL SQ SCH ×4 (00:58→17:12)
[2019-10-26] MEDS: LEVOTHYROXINE NA 75 MCG TABLET (FP) PO SCH (06:18)
[2019-10-26 08:57] LABS: URINE APPEARANCE CLEAR; URINE BILIRUBIN NEGATIVE (NEGATIVE); URINE COLOR YELLOW; URINE GLUCOSE (UA) 3+ (NEGATIVE); URINE KETONE NEGATIVE (NEGATIVE); URINE LEUK ESTERASE NEGATIVE (NEGATIVE); URINE NITRITE NEGATIVE (NEGATIVE); URINE PROTEIN 1+ (NEGATIVE); URINE UROBILINOGEN 0.2 mg/dL (0.2-1.0)
[2019-10-26 09:17] LABS: BASO % 0.3 % (0-2.0); EOS % 0.2 % (0-4.5); HEMATOCRIT 24.1 % (32.4-45.2); LYMPH % 22.1 % (8-40); MCH 28.9 pg (25.7-33.7); MEAN CELL VOLUME 87.5 fl (80-96); MEAN PLT VOLUME 8.5 fl (7.5-11.1); MONO % 13.8 % (3.8-10.2); NEUT % 63.6 % (42.8-82.8); PLATELET COUNT 205 K/MM3 (134-434); RBC 2.75 M/mm3 (3.60-5.2); RDW 14.4 % (11.6-15.6); WHITE BLOOD COUNT 7.8 K/mm3 (4.0-10.0)
[2019-10-26 09:31] LABS: INR 1.23 (0.83-1.09); PROTHROMBIN TIME (PATIENT) 14.5 SEC (9.7-13.0)
[2019-10-26] MEDS: amLODIPine BESYLATE 10 MG TABLET (FP) PO SCH (09:31)
[2019-10-26] MEDS: VALSARTAN 160 MG TABLET (UD) PO SCH (09:31)
[2019-10-26] MEDS: PANTOPRAZOLE 40 MG TABLET (FP) PO SCH (09:31)
[2019-10-26 09:34] LABS: ACTIVATED PTT 27.5 SECONDS (25.2-36.5)
[2019-10-26 09:50] LABS: IRON SERUM 27 ug/dL (50-175); TOTAL IRON BINDING CAPACITY 257 ug/dL (250-450)
[2019-10-26 09:52] LABS: BILIRUBIN,TOTAL 0.5 mg/dL (0.2-1); BLOOD UREA NITROGEN 24.4 mg/dL (7-18); CALCIUM 8.7 mg/dL (8.5-10.1); CREATININE 0.9 mg/dL (0.55-1.3); MAGNESIUM 1.8 mg/dL (1.8-2.4); PHOSPHOROUS 2.9 mg/dL (2.5-4.9); POTASSIUM 3.8 mmol/L (3.5-5.1); TOT PROT 6.2 g/dl (6.4-8.2)
[2019-10-26] MEDS ORDERED: CEPHALEXIN MONOHYDRATE 500 MG CAPSULE (UD) PO SCH ×2 (10:00)
--- NOTE | 2019-10-26 10:40 | CON.CARD ---
Consult Consult Specialty:: Cardiology Referred by:: Dr. Chow Reason for Consultation:: Preop cardiac evaluation - History of Present Illness Chief Complaint: Fall with LE laceration History of Present Illness: 89F DM, HTN moderate to severe on echo 05/2019 s/p fall with trauma and significant skin abrasion LE. Seen in wound center, will need OR debridement and surgical reattachment. Patient tolerated hip surgery well about two years ago. She walks with a cane: denies exertional angina, syncope or CHF. Denies H/o MD or CAD; prior R. CEA. - History Source History Provided By: Patient, Family Member (Son at bedside) - Past Medical History Cardio/Vascular: Yes: CAD, HTN, Hyperlipdemia, Mitral Insufficiency Gastrointestinal: Yes: GERD, Hemorrhoids, Other (fatty liver ds) ...: No Musculoskeletal: Yes: Osteoarthritis Endocrine: Yes: Diabetes Mellitus (uncontrolled), Other (obesity) - Past Surgical History Past Surgical History: Yes: Carotid Endarterectomy (Right) Additional Surgical History: Prior r hip surgery - Alcohol/Substance Use Hx Alcohol Use: No History of Substance Use: reports: None - Smoking History Smoking history: Never smoked Have you smoked in the past 12 months: No - Social History Usual Living Arrangement: Alone History of Recent Travel: No Home Medications - Allergies Allergies/Adverse Reactions: Allergies Allergy/AdvReac Type Severity Reaction Status Date / Time No Known Allergies Allergy Verified 10/25/19 16:53 - Home Medications Home Medications: Ambulatory Orders Amlodipine Besylate 10 mg PO DAILY 12/29/17 Levothyroxine [Synthroid -] 75 mcg PO DAILY 12/29/17 Metformin HCl [Glucophage] 1,000 mg PO BID 12/29/17 Metoprolol Tartrate 50 mg PO BID 12/29/17 Pioglitazone HCl [Actos] 30 mg PO DAILY 12/29/17 Pravastatin Sodium [Pravachol -] 40 mg PO DAILY 12/29/17 Sitagliptin Phosphate [Januvia] 100 mg PO DAILY 12/29/17 Glimepiride 2 mg PO DAILY 05/11/18 Cephalexin [Keflex] 1 tab PO DAILY 10/25/19 Valsartan 320 mg PO DAILY 10/25/19 Family Medical History Family History: Unremarkable Review of Systems Findings/Remarks: Slipped and fell resulting in LE abrasion Went to [facility], could not be sutured; was wrapped - Review of Systems Constitutional: reports: No Symptoms Eyes: reports: No Symptoms HENT: reports: No Symptoms Neck: reports: No Symptoms Cardiovascular: reports: No Symptoms Respiratory: reports: No Symptoms Gastrointestinal: reports: No Symptoms Genitourinary: reports: No Symptoms Breasts: reports: No Symptoms Reported Musculoskeletal: reports: No Symptoms Integumentary: reports: No Symptoms Neurological: reports: No Symptoms Endocrine: reports: No Symptoms Hematology/Lymphatic: reports: No Symptoms Psychiatric: reports: No Symptoms - Risk Factors Known Risk Factors: Yes: Diabetes Mellitus, Hypertension Vital Signs: Vital Signs Temperature 99.5 F 10/26/19 10:00 Pulse Rate 82 10/26/19 10:00 Respiratory Rate 20 10/26/19 10:00 Blood Pressure 120/59 L 10/26/19 10:00 O2 Sat by Pulse Oximetry (%) 97 10/26/19 00:18 Constitutional: Yes: No Distress, Calm Eyes: Yes: Conjunctiva Clear Respiratory: Yes: CTA Bilaterally Gastrointestinal: Yes: Soft Cardiovascular: Yes: Regular Rate and Rhythm JVD: No Carotid Bruit: No Heart Sounds: Yes: S1, S2 (RRR, 2/6 CORTEZ RSB with preserved S2 and no delay in carotid upstroke) Edema: No Neurological: Yes: Alert, Oriented - Other Data Labs, Other Data: CBC, BMP 10/26/19 08:00 10/26/19 08:00 INR, PTT INR 1.23 (0.83-1.09) H 10/26/19 08:00 Laboratory Tests 10/26/19 10/26/19 10/26/19 08:00 08:00 08:00 WBC 7.8 Hgb 8.0 L Plt Count 205 INR 1.23 H Sodium 140 Potassium 3.8 BUN 24.4 H Creatinine 0.9 Alkaline Phosphatase 58 Total Protein 6.2 L Albumin 3.0 L TSH 2.97 Imaging - Results EKG: Image Reviewed (NSR 79bpm, LVH, NSST) Assessment/Plan IMP: Mechanical fall resulting in significant RLE Laceration DM Moderate to severe (Echo 05/2019 with nl LVEF), asx Chronic HTN Anemia REC: 1. Presently, there are no absolute cardiac contraindications to surgery for her RLE wound. She has moderate to severe asymptomatic (by echo and by exam- preserved S2 w / no delay in carotid upstroke). This should not pose any significant hemodynamic issues during surgery, but would try to avoid hypotension perioperatively. She has no active anginal symptoms, appears euvolemic with controlled blood pressure and is in NSR. 2. The surgery would be considered urgent as she is at risk for developing cellulitis and worsening infection/ sepsis. 3. Overall, she is at moderate risk for periop surgical complications including MD, CHF, arrhythmia, CVA and . This was explained to patient and family. Overall, the benefits of surgery outweigh the risks. 4. She should receive her usual BP meds the morning of surgery with a sip of water. Would check post op ECG and cardiac enzymes. Please call us if any issues periop. Will follow.
[2019-10-26] MEDS ORDERED: MINERAL OIL 25 ML OIL ONE (13:45)
[2019-10-26] MEDS ORDERED: DEXAMETHASONE SOD PHOSPHATE/PF 10 MG/ML SDV ONE (14:02)
[2019-10-26] MEDS ORDERED: BUPIVACAINE HCL/PF 0.5% (5 MG/ML) 30 ML VIAL IJ ONE (14:02)
--- NOTE | 2019-10-26 14:06 | EKG ---
Test Reason : Blood Pressure : / mmHG Vent. Rate : 079 BPM Atrial Rate : 079 BPM P-R Int : 158 ms QRS Dur : 088 ms QT Int : 390 ms P-R-T Axes : 027 005 -42 degrees QTc Int : 447 ms NORMAL SINUS RHYTHM MINIMAL VOLTAGE CRITERIA FOR LVH, MAY BE NORMAL VARIANT NONSPECIFIC ST ABNORMALITY ABNORMAL ECG Confirmed by MELLO VU MD ([id number]) on 10/26/2019 2:06:21 PM Referred By: Confirmed By:MELLO VU MD
[2019-10-26] MEDS ORDERED: MIDAZOLAM HCL 2 MG/2 ML SINGLE DOSE VIAL ONE ×2 (14:10)
[2019-10-26] MEDS ORDERED: BACITRACIN 15 GM TUBE TOPICAL OINTMENT ONE (15:04)
[2019-10-26] MEDS ORDERED: ceFAZolin SODIUM 1 GM VIAL IVPB ONE (15:06)
[2019-10-26] MEDS ORDERED: BACITRACIN 50,000 UNITS VIAL TP ONE (15:45)
[2019-10-26] MEDS ORDERED: PROPOFOL 20 ML ONE (16:14)
[2019-10-26] MEDS ORDERED: SUCCINYLCHOLINE CHLORIDE 200 MG/10 ML SYRINGE ONE (16:14)
[2019-10-26] MEDS ORDERED: BACITRACIN 15 GM TUBE TOPICAL OINTMENT TP ONE (16:15)
[2019-10-26] MEDS ORDERED: LACTATED RINGERS SOLUTION 1,000 ML IV SCH (17:00)
--- NOTE | 2019-10-26 17:31 | PN ---
Teaching Attending Note Name of Resident: Flynn Rodriguez ATTENDING PHYSICIAN STATEMENT I saw and evaluated the patient. I reviewed the resident's note and discussed the case with the resident. I agree with the resident's findings and plan as documented. SUBJECTIVE:seen at 11 am No fever or chills. No HERMOSILLO , has pain in R leg. no SOB , nO HERMOSILLO , no JOHNSON, no exertional CP, no cp or palpitations . OBJECTIVE: NAD MMM Cv: RRR, 3/6 Sma t base and LLSB with radiatio to the carotid Lungs: CTAB Abd: soft, , ND , NT NL BS Ext: varicose veins. R leg with a dressing ( not allowed to remove ) . DP 1+ b/ l . No fungal infection in toe webs ASSESSMENT AND PLAN: 89 y/o lady with h/o NIDDM, HTN, Hypothyroidism, CAD and HLD who presented from wound care due to RLE wound 1- RLE wound s/p trauma: - now s/p debridement and skin graft. - case d/w Dr. Brewer. wound looked necrotic but no signs of infection . no dainage. cx from deep tissues was obtained. Abx are recommended x 48 hrs.. also leg elevation x 25 degrees. - will start cefazolin 500 mg TID. crcl 54%. - monitor on IV for now. will evaluate need for fluids tomorrow 2- HTN:cont her home meds of norvasc, valsartan, and metoprolol 3- H/o Mod : asymptomatic. good functional capacity . EKG reviewed. 4- poorly controlled Dm : - A1c 9 - cont home dose of levemir QHS - cont SSI 5- Normocytic anemia: iron studeis lack ferritin will order. check B12, folate. further w/u as out pt 6- DVT PX : start SQ heparin . d/w Dr. Brewer
--- NOTE | 2019-10-26 18:21 | PN ---
Physical Exam: SUBJECTIVE: Patient seen and examined. She reports some RLE pain. OBJECTIVE: Vital Signs Period Temp Pulse Resp BP Sys/Voss Pulse Ox Last 24 Hr 98.1 F-99.8 F 72-98 14-20 116-152/40-80 97-100 GENERAL: The patient is awake, alert, and fully oriented, in no acute distress. HEAD: Normal with no signs of trauma. EYES: PERRL, extraocular movements intact, conjunctiva clear. ENT: Ears normal, nares patent, moist mucous membranes. NECK: Trachea midline, full range of motion, supple. LUNGS: Clear to auscultation bilaterally HEART: Regular rate and rhythm, 3/6 systolic murmur ABDOMEN: Soft, nontender, nondistended, normoactive bowel sounds EXTREMITIES: Warm, well-perfused, RLE bandaged, LLE ecchymosis and varicose veins NEUROLOGICAL: Cranial nerves II through XII grossly intact. Normal speech PSYCH: Normal mood, normal affect. SKIN: Warm, dry, normal turgor Laboratory Results - last 24 hr 10/25/19 10/25/19 10/25/19 17:19 17:19 20:22 WBC RBC Hgb Hct MCV MCH MCHC RDW Plt Count MPV Absolute Neuts (auto) Neutrophils % Lymphocytes % Monocytes % Eosinophils % Basophils % Nucleated RBC % PT with INR 13.50 H INR 1.14 H PTT (Actin FS) 29.3 Sodium Potassium Chloride Carbon Dioxide Anion Gap BUN Creatinine Est GFR (CKD-EPI)AfAm Est GFR (CKD-EPI)NonAf POC Glucometer 340 Random Glucose Hemoglobin A1c % Calcium Phosphorus Magnesium Iron TIBC Iron Saturation Unsaturated IBC Total Bilirubin AST ALT Alkaline Phosphatase Total Protein Albumin TSH Urine Color Urine Appearance Urine pH Ur Specific [place] Urine Protein Urine Glucose (UA) Urine Ketones Urine Blood Urine Nitrite Urine Bilirubin Urine Urobilinogen Ur Leukocyte Esterase Urine WBC (Auto) Urine RBC (Auto) Urine Casts (Auto) U Epithel Cells (Auto) Urine Bacteria (Auto) Blood Type O POSITIVE Antibody Screen Negative 10/25/19 10/26/19 10/26/19 22:45 00:46 05:45 WBC RBC Hgb Hct MCV MCH MCHC RDW Plt Count MPV Absolute Neuts (auto) Neutrophils % Lymphocytes % Monocytes % Eosinophils % Basophils % Nucleated RBC % PT with INR INR PTT (Actin FS) Sodium Potassium Chloride Carbon Dioxide Anion Gap BUN Creatinine Est GFR (CKD-EPI)AfAm Est GFR (CKD-EPI)NonAf POC Glucometer 285 200 Random Glucose Hemoglobin A1c % Calcium Phosphorus Magnesium Iron TIBC Iron Saturation Unsaturated IBC Total Bilirubin AST ALT Alkaline Phosphatase Total Protein Albumin TSH Urine Color Yellow Urine Appearance Clear Urine pH 5.0 Ur Specific [place] 1.026 Urine Protein 1+ H Urine Glucose (UA) 3+ H Urine Ketones Negative Urine Blood Negative Urine Nitrite Negative Urine Bilirubin Negative Urine Urobilinogen 0.2 Ur Leukocyte Esterase 1+ H Urine WBC (Auto) 12 Urine RBC (Auto) 4 Urine Casts (Auto) 6 U Epithel Cells (Auto) 7.8 Urine Bacteria (Auto) 5.8 Blood Type Antibody Screen 10/26/19 10/26/19 10/26/19 06:10 08:00 08:00 WBC 7.8 RBC 2.75 L Hgb 8.0 L Hct 24.1 L MCV 87.5 MCH 28.9 MCHC 33.0 RDW 14.4 Plt Count 205 MPV 8.5 Absolute Neuts (auto) 5.0 Neutrophils % 63.6 Lymphocytes % 22.1 D Monocytes % 13.8 H Eosinophils % 0.2 Basophils % 0.3 Nucleated RBC % 0 PT with INR 14.50 H INR 1.23 H PTT (Actin FS) 27.5 Sodium Potassium Chloride Carbon Dioxide Anion Gap BUN Creatinine Est GFR (CKD-EPI)AfAm Est GFR (CKD-EPI)NonAf POC Glucometer Random Glucose Hemoglobin A1c % Calcium Phosphorus Magnesium Iron TIBC Iron Saturation Unsaturated IBC Total Bilirubin AST ALT Alkaline Phosphatase Total Protein Albumin TSH Urine Color Yellow Urine Appearance Clear Urine pH 5.0 Ur Specific [place] 1.026 Urine Protein 1+ H Urine Glucose (UA) 3+ H Urine Ketones Negative Urine Blood Negative Urine Nitrite Negative Urine Bilirubin Negative Urine Urobilinogen 0.2 Ur Leukocyte Esterase Negative Urine WBC (Auto) Urine RBC (Auto) Urine Casts (Auto) U Epithel Cells (Auto) Urine Bacteria (Auto) Blood Type Antibody Screen 10/26/19 10/26/19 10/26/19 08:00 08:00 08:00 WBC RBC Hgb Hct MCV MCH MCHC RDW Plt Count MPV Absolute Neuts (auto) Neutrophils % Lymphocytes % Monocytes % Eosinophils % Basophils % Nucleated RBC % PT with INR INR PTT (Actin FS) Sodium 140 Potassium 3.8 Chloride 106 Carbon Dioxide 27 Anion Gap 7 L BUN 24.4 H Creatinine 0.9 Est GFR (CKD-EPI)AfAm 66.16 Est GFR (CKD-EPI)NonAf 57.09 POC Glucometer Random Glucose 192 H Hemoglobin A1c % 9.0 H Calcium 8.7 Phosphorus 2.9 Magnesium 1.8 Iron 27 L TIBC 257 Iron Saturation 10 L Unsaturated IBC 230 Total Bilirubin 0.5 AST 12 L ALT 19 Alkaline Phosphatase 58 Total Protein 6.2 L Albumin 3.0 L TSH 2.97 Urine Color Urine Appearance Urine pH Ur Specific [place] Urine Protein Urine Glucose (UA) Urine Ketones Urine Blood Urine Nitrite Urine Bilirubin Urine Urobilinogen Ur Leukocyte Esterase Urine WBC (Auto) Urine RBC (Auto) Urine Casts (Auto) U Epithel Cells (Auto) Urine Bacteria (Auto) Blood Type Antibody Screen 10/26/19 11:27 WBC RBC Hgb Hct MCV MCH MCHC RDW Plt Count MPV Absolute Neuts (auto) Neutrophils % Lymphocytes % Monocytes % Eosinophils % Basophils % Nucleated RBC % PT with INR INR PTT (Actin FS) Sodium Potassium Chloride Carbon Dioxide Anion Gap BUN Creatinine Est GFR (CKD-EPI)AfAm Est GFR (CKD-EPI)NonAf POC Glucometer 251 Random Glucose Hemoglobin A1c % Calcium Phosphorus Magnesium Iron TIBC Iron Saturation Unsaturated IBC Total Bilirubin AST ALT Alkaline Phosphatase Total Protein Albumin TSH Urine Color Urine Appearance Urine pH Ur Specific [place] Urine Protein Urine Glucose (UA) Urine Ketones Urine Blood Urine Nitrite Urine Bilirubin Urine Urobilinogen Ur Leukocyte Esterase Urine WBC (Auto) Urine RBC (Auto) Urine Casts (Auto) U Epithel Cells (Auto) Urine Bacteria (Auto) Blood Type Antibody Screen Active Medications Generic Name Dose Route Start Last Admin Trade Name Stephani PRN Reason Stop Dose Admin Amlodipine Besylate 10 mg 10/26/19 10:00 10/26/19 09:31 Norvasc - PO 10 mg DAILY RHIANNA Administration Atorvastatin Calcium 10 mg 10/26/19 22:00 Lipitor - PO HS RHIANNA Lactated Ringer's 1,000 mls @ 75 mls/hr 10/26/19 17:00 Lactated Ringers Solution IV ASDIR RHIANNA Cefazolin Sodium 500 mg/ 50 mls @ 100 mls/hr 10/26/19 18:00 Dextrose IVPB Q8H-IV RHIANNA Insulin Aspart 1 vial 10/26/19 00:45 10/26/19 17:12 Novolog Vial Sliding Scale - SQ Not Given TIDAC [facility] Protocol Insulin Detemir 20 units 10/26/19 22:00 Levemir Vial SQ HS RHIANNA Levothyroxine Sodium 75 mcg 10/26/19 07:00 10/26/19 06:18 Synthroid - PO 75 mcg DAILY@0700 RHIANNA Administration Metoprolol Tartrate 50 mg 10/26/19 01:00 10/26/19 09:31 Lopressor - PO 50 mg BID RHIANNA Administration Pantoprazole Sodium 40 mg 10/26/19 10:00 10/26/19 09:31 Protonix - PO 40 mg DAILY RHIANNA Administration Valsartan 320 mg 10/26/19 10:00 10/26/19 09:31 Diovan - PO 320 mg DAILY RHIANNA Administration ASSESSMENT/PLAN: Ms. Dominique is an 89y/o female with HTN, HLD, IDDM, hypothyroidism, and s/p right who presents following mechanical fall with RLE injury. #RLE wound -debridement planned today -keep bandaged -Tylenol PRN #IDDM -A1C 9 -Levemir 20U QHS -SSI -BGMs -hold metformin -hold glimepiride -hold sitagliptin -hold pioglitazone #HTN -valsartan 320mg daily -metoprolol tartrate 50mg BID -amlodipine 10mg daily #HLD -pravastatin 40mg daily #hypothyroidism -Synthroid 75mcg DVT Ppx SCDs FEN PO fluids monitor labs diabetic diet dispo med/surg Visit type - Emergency Visit Emergency Visit: Yes ED Registration Date: 10/25/19 Care time: The patient presented to the Emergency Department on the above date and was hospitalized for further evaluation of their emergent condition. - New Patient This patient is new to me today: Yes Date on this admission: 10/26/19 - Critical Care Critical Care patient: No - Discharge Referral [facility]erred to [facility] Med P.C.: No ATTENDING PHYSICIAN STATEMENT I saw and evaluated the patient. I reviewed the resident's note and discussed the case with the resident. I agree with the resident's findings and plan as documented. SUBJECTIVE: OBJECTIVE: ASSESSMENT AND PLAN:
[2019-10-26] MEDS: CEFAZOLIN 500 MG in DEXTROSE 5%-WATER - 50 ML IVPB SCH (20:30)
[2019-10-26] MEDS: ATORVASTATIN CA 10 MG TABLET (FP) PO SCH (21:16)
[2019-10-26] MEDS: INSULIN (LEVEMIR) 100 UNITS/ML UNITS SQ SCH (21:19)
[2019-10-27] MEDS ORDERED: PT OWN MED DRAWER 7, Y5N ONE ×2 (01:16→17:43)
[2019-10-27] MEDS: CEFAZOLIN 500 MG in DEXTROSE 5%-WATER - 50 ML IVPB SCH ×3 (01:37→17:47)
[2019-10-27] MEDS: INSULIN SLIDING SCALE (NOVOLOG) 1 VIAL SQ SCH ×3 (06:06→16:51)
[2019-10-27] MEDS: LEVOTHYROXINE NA 75 MCG TABLET (FP) PO SCH (06:06)
[2019-10-27] MEDS ORDERED: INSULIN (LEVEMIR) 100 UNITS/ML UNITS SQ SCH (07:00)
[2019-10-27 07:14] LABS: BASO % 0.2 % (0-2.0); EOS % 0.5 % (0-4.5); HEMATOCRIT 25.4 % (32.4-45.2); HEMOGLOBIN 8.4 GM/dL (10.7-15.3); LYMPH % 24.1 % (8-40); MCHC 33.1 g/dl (32.0-36.0); MEAN CELL VOLUME 87.8 fl (80-96); MEAN PLT VOLUME 8.6 fl (7.5-11.1); MONO % 13.4 % (3.8-10.2); NEUT % 61.8 % (42.8-82.8); PLATELET COUNT 194 K/MM3 (134-434); RBC 2.89 M/mm3 (3.60-5.2); RDW 14.8 % (11.6-15.6); WHITE BLOOD COUNT 7.3 K/mm3 (4.0-10.0)
[2019-10-27 07:56] LABS: BLOOD UREA NITROGEN 19.6 mg/dL (7-18); CALCIUM 8.5 mg/dL (8.5-10.1); CREATININE 0.8 mg/dL (0.55-1.3); MAGNESIUM 1.7 mg/dL (1.8-2.4); PHOSPHOROUS 2.7 mg/dL (2.5-4.9); POTASSIUM 3.6 mmol/L (3.5-5.1)
[2019-10-27] MEDS: PANTOPRAZOLE 40 MG TABLET (FP) PO SCH (09:30)
[2019-10-27] MEDS: amLODIPine BESYLATE 10 MG TABLET (FP) PO SCH (09:30)
[2019-10-27] MEDS: METOPROLOL TARTRATE 50 MG TABLET (FP) PO SCH ×2 (09:30→21:48)
[2019-10-27] MEDS: VALSARTAN 160 MG TABLET (UD) PO SCH (09:30)
[2019-10-27] MEDS ORDERED: INSULIN (NOVOLOG) ASPART 100 UNITS/ML 10ML VIAL ONE (11:32)
--- NOTE | 2019-10-27 12:32 | PN ---
Progress Note (short form) - Note Progress Note: s: s/p wound debridement, feeling well. no chest pain, palps, dizziness, dyspnea Current Medications Amlodipine Besylate (Norvasc -) 10 mg PO DAILY [facility] Last Admin: 10/27/19 09:30 Dose: 10 mg Atorvastatin Calcium (Lipitor -) 10 mg PO HS [facility] Last Admin: 10/26/19 21:16 Dose: 10 mg Lactated Ringer's (Lactated Ringers Solution) 1,000 mls @ 75 mls/hr IV ASDIR [facility] Cefazolin Sodium 500 mg/ (Dextrose) 50 mls @ 100 mls/hr IVPB Q8H-IV [facility] Last Admin: 10/27/19 09:30 Dose: 100 mls/hr Insulin Aspart (Novolog Vial Sliding Scale -) 1 vial SQ TIDAC [facility]; Protocol Last Admin: 10/27/19 11:39 Dose: 6 units Insulin Detemir (Levemir Vial) 20 units SQ [facility] Last Admin: 10/26/19 21:19 Dose: 20 units Levothyroxine Sodium (Synthroid -) 75 mcg PO DAILY@0700 [facility] Last Admin: 10/27/19 06:06 Dose: 75 mcg Metoprolol Tartrate (Lopressor -) 50 mg PO BID [facility] Last Admin: 10/27/19 09:30 Dose: 50 mg Pantoprazole Sodium (Protonix -) 40 mg PO DAILY [facility] Last Admin: 10/27/19 09:30 Dose: 40 mg Valsartan (Diovan -) 320 mg PO DAILY [facility] Last Admin: 10/27/19 09:30 Dose: 320 mg Vital Signs Period Temp Pulse Resp BP Sys/Voss Pulse Ox Last 24 Hr 98.1 F-99.8 F 68-98 14-20 116-148/40-80 96-100 Constitutional: Yes: No Distress, Calm Eyes: Yes: Conjunctiva Clear Respiratory: Yes: CTA Bilaterally Gastrointestinal: Yes: Soft Cardiovascular: Yes: Regular Rate and Rhythm JVD: No Carotid Bruit: No Heart Sounds: Yes: S1, S2 (RRR, 2/6 CORTEZ RSB with preserved S2 and no delay in carotid upstroke) Edema: No Neurological: Yes: Alert, Oriented no jaundice, diaphoresis not agitated Imaging - Results EKG: Image Reviewed (NSR 79bpm, LVH, NSST) Assessment/Plan IMP: Mechanical fall resulting in significant RLE Laceration 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
[2019-10-27] MEDS ORDERED: MAGNESIUM SULF 50% (8.12 MEQ/2 ML-1 GM VIAL) IVPB ONE (12:58)
--- NOTE | 2019-10-27 13:01 | PN ---
Teaching Attending Note Name of Resident: Flynn Rodriguez ATTENDING PHYSICIAN STATEMENT I saw and evaluated the patient. I reviewed the resident's note and discussed the case with the resident. I agree with the resident's findings and plan as documented. SUBJECTIVE: No fever or chills . itchiness in R leg at wound site. OBJECTIVE: NAD MMM Cv: RRR, 3/6 SM at base and LLSB with radiation to the carotid Lungs: CTAB Abd: soft, ND, NT NL BS Ext: varicose veins. R leg with a dressing . can move toes. has normal sensation in toes and fore foot. has bruise on plantar aspect of the R big toe. LLE: no edema or erythema. varicose veins. bruise on medial aspect of leg . DP 1+ ASSESSMENT AND PLAN: 89 y/o lady with h/o NIDDM, HTN, Hypothyroidism, CAD and HLD who presented from wound care due to RLE wound 1- RLE wound s/p trauma: - now s/p debridement and skin graft. - leg elevation x 25 degrees. - cont Bx fro one more day -Dc IVF 2- HTN:cont her home meds of norvasc, valsartan, and metoprolol 3- H/o Mod : asymptomatic. euovolemic 4- Poorly controlled Dm : - A1c 9 - cont home dose of levemir QHS - cont SSI 5- Normocytic anemia: iron studies might indicate iron def. ful l w/u as out pt 6- DVT PX : SQ heparin
--- NOTE | 2019-10-27 13:50 | PN ---
Physical Exam: SUBJECTIVE: Patient seen and examined in bed. She is s/p debridement and skin graft. She is tearful and worried about recovery. She denies HERMOSILLO, SB, and CP. She reports using her incentive spirometer. OBJECTIVE: Vital Signs Period Temp Pulse Resp BP Sys/Voss Pulse Ox Last 24 Hr 98.1 F-99.8 F 68-98 14-20 116-148/40-80 96-100 GENERAL: AOx3, in no acute distress, Liberian speaking HEAD: NCAT EYES: WINTER, EOMI, conjunctiva clear. ENT: Ears normal, nares patent, oropharynx clear without exudates. Moist mucous membranes. NECK: Normal range of motion, supple without lymphadenopathy, JVD, or masses. LUNGS: CTAB. No wheezes, and no crackles. No accessory muscle use. HEART: RRR s1 s2 systolic murmur ABDOMEN: Soft, BS present in all 4 quadrants, non-distended, no JVD, MUSCULOSKELETAL: No bony deformities or tenderness. No CVA tenderness. UPPER EXTREMITIES: 2+ pulses, warm, well-perfused. No cyanosis. No clubbing. No peripheral edema. LOWER EXTREMITIES: RLE in surgical dressing. 2+ pulses, warm, well-perfused. No calf tenderness. No peripheral edema. NEUROLOGICAL: No focal deficits. Cranial nerves II-XII intact. Normal speech. Gait not appreciated. PSYCHIATRIC: Cooperative. Good eye contact. Appropriate mood and affect. SKIN: Warm, dry, normal turgor, no rashes or lesions noted, normal capillary refill. Laboratory Results - last 24 hr 10/26/19 10/27/19 10/27/19 08:00 05:51 06:30 WBC RBC Hgb Hct MCV MCH MCHC RDW Plt Count MPV Absolute Neuts (auto) Neutrophils % Lymphocytes % Monocytes % Eosinophils % Basophils % Nucleated RBC % Retic Count 3.51 H Sodium Potassium Chloride Carbon Dioxide Anion Gap BUN Creatinine Est GFR (CKD-EPI)AfAm Est GFR (CKD-EPI)NonAf POC Glucometer 281 Random Glucose Hemoglobin A1c % 9.0 H Calcium Phosphorus Magnesium Ferritin Vitamin B12 Serum Folate 10/27/19 10/27/19 10/27/19 06:30 06:30 06:30 WBC 7.3 RBC 2.89 L Hgb 8.4 L Hct 25.4 L MCV 87.8 MCH 29.0 MCHC 33.1 RDW 14.8 Plt Count 194 MPV 8.6 Absolute Neuts (auto) 4.5 Neutrophils % 61.8 Lymphocytes % 24.1 Monocytes % 13.4 H Eosinophils % 0.5 D Basophils % 0.2 Nucleated RBC % 0 Retic Count Sodium 139 Potassium 3.6 Chloride 107 Carbon Dioxide 26 Anion Gap 6 L BUN 19.6 H Creatinine 0.8 Est GFR (CKD-EPI)AfAm 76.29 Est GFR (CKD-EPI)NonAf 65.82 POC Glucometer Random Glucose 216 H Hemoglobin A1c % Calcium 8.5 Phosphorus 2.7 Magnesium 1.7 L Ferritin 32.2 Vitamin B12 2767 H Serum Folate 19 H 10/27/19 11:26 WBC RBC Hgb Hct MCV MCH MCHC RDW Plt Count MPV Absolute Neuts (auto) Neutrophils % Lymphocytes % Monocytes % Eosinophils % Basophils % Nucleated RBC % Retic Count Sodium Potassium Chloride Carbon Dioxide Anion Gap BUN Creatinine Est GFR (CKD-EPI)AfAm Est GFR (CKD-EPI)NonAf POC Glucometer 298 Random Glucose Hemoglobin A1c % Calcium Phosphorus Magnesium Ferritin Vitamin B12 Serum Folate Active Medications Generic Name Dose Route Start Last Admin Trade Name Freq PRN Reason Stop Dose Admin Amlodipine Besylate 10 mg 10/26/19 10:00 10/27/19 09:30 Norvasc - PO 10 mg DAILY RHIANNA Administration Atorvastatin Calcium 10 mg 10/26/19 22:00 10/26/19 21:16 Lipitor - PO 10 mg HS RHIANNA Administration Cefazolin Sodium 500 mg/ 50 mls @ 100 mls/hr 10/26/19 18:00 10/27/19 09:30 Dextrose IVPB 100 mls/hr Q8H-IV RHIANNA Administration Insulin Aspart 1 vial 10/26/19 00:45 10/27/19 11:39 Novolog Vial Sliding Scale - SQ 6 units TIDAC RHIANNA Administration Protocol Insulin Detemir 20 units 10/26/19 22:00 10/26/19 21:19 Levemir Vial SQ 20 units HS RHIANNA Administration Levothyroxine Sodium 75 mcg 10/26/19 07:00 10/27/19 06:06 Synthroid - PO 75 mcg DAILY@0700 RHIANNA Administration Metoprolol Tartrate 50 mg 10/26/19 01:00 10/27/19 09:30 Lopressor - PO 50 mg BID RHIANNA Administration Pantoprazole Sodium 40 mg 10/26/19 10:00 10/27/19 09:30 Protonix - PO 40 mg DAILY RHIANNA Administration Valsartan 320 mg 10/26/19 10:00 10/27/19 09:30 Diovan - PO 320 mg DAILY RHIANNA Administration ASSESSMENT/PLAN: 89 y/o female PMH DM, HTN, HLD, hypothyroidism, and CAD whom presented from wound care due to RLE wound # RLE wound s/p trauma - Missed step at home - S/p debridement and skin graft. - Leg elevation x 25 degrees. - Cont cephazolin IV q8h - DC IVF # HTN - Cont. home regmien Norvasc 10 mg PO QD Valsartan 320 mg PO QD Metoprolol 50 mg PO BID # Moderate - Asymptomatic - Euovolemic - Outpatient echo surveillance # Poorly controlled DM - A1c 9 - Continue home dose of levemir 20 units sq HS - ISS # Normocytic anemia - Iron studies might indicate iron def. - F/u out pt # DVT ppx - Heparin # Disposition - Med/surg Visit type - Emergency Visit Emergency Visit: No - New Patient This patient is new to me today: No - Critical Care Critical Care patient: No ATTENDING PHYSICIAN STATEMENT I saw and evaluated the patient. I reviewed the resident's note and discussed the case with the resident. I agree with the resident's findings and plan as documented. SUBJECTIVE: OBJECTIVE: ASSESSMENT AND PLAN:
--- NOTE | 2019-10-27 17:11 | PN ---
Progress Note (short form) - Note Progress Note: 89F s/p I&D RLE wound with skin graft under regional anesthesia (sciatic and femoral nerve block) now POD#1. No anesthesia related complications. Pt. comfortable thru the night and during the day. Sensation, as would be expected , of the RLE is begining to return. Continue management per primary team.
[2019-10-27] MEDS: ATORVASTATIN CA 10 MG TABLET (FP) PO SCH (21:48)
[2019-10-27] MEDS: INSULIN (LEVEMIR) 100 UNITS/ML UNITS SQ SCH (21:48)
[2019-10-28] MEDS ORDERED: PT OWN MED DRAWER 7, Y5N ONE (01:42)
[2019-10-28] MEDS: CEFAZOLIN 500 MG in DEXTROSE 5%-WATER - 50 ML IVPB SCH ×2 (01:52→11:00)
[2019-10-28] MEDS ORDERED: ACETAMINOPHEN 325 MG TABLET (FP) PO ONE (06:41)
[2019-10-28] MEDS: INSULIN SLIDING SCALE (NOVOLOG) 1 VIAL SQ SCH ×3 (06:44→17:02)
[2019-10-28] MEDS: LEVOTHYROXINE NA 75 MCG TABLET (FP) PO SCH (07:00)
[2019-10-28] MEDS: METOPROLOL TARTRATE 50 MG TABLET (FP) PO SCH ×2 (11:01→22:25)
[2019-10-28] MEDS: VALSARTAN 160 MG TABLET (UD) PO SCH (11:01)
[2019-10-28] MEDS: amLODIPine BESYLATE 10 MG TABLET (FP) PO SCH (11:01)
[2019-10-28] MEDS: PANTOPRAZOLE 40 MG TABLET (FP) PO SCH (11:01)
--- NOTE | 2019-10-28 12:28 | PN ---
Progress Note (short form) - Note Progress Note: s: no chest pain, palps, dizziness, dyspnea Current Medications Amlodipine Besylate (Norvasc -) 10 mg PO DAILY [facility] Last Admin: 10/28/19 11:01 Dose: 10 mg Atorvastatin Calcium (Lipitor -) 10 mg PO HS [facility] Last Admin: 10/27/19 21:48 Dose: 10 mg Cefazolin Sodium 500 mg/ (Dextrose) 50 mls @ 100 mls/hr IVPB Q8H-IV [facility] Last Admin: 10/28/19 11:00 Dose: 100 mls/hr Insulin Aspart (Novolog Vial Sliding Scale -) 1 vial SQ TIDAC [facility]; Protocol Last Admin: 10/28/19 12:11 Dose: 6 units Insulin Detemir (Levemir Vial) 20 units SQ [facility] Last Admin: 10/27/19 21:48 Dose: 20 units Levothyroxine Sodium (Synthroid -) 75 mcg PO DAILY@0700 [facility] Last Admin: 10/28/19 07:00 Dose: 75 mcg Metoprolol Tartrate (Lopressor -) 50 mg PO BID [facility] Last Admin: 10/28/19 11:01 Dose: 50 mg Pantoprazole Sodium (Protonix -) 40 mg PO DAILY [facility] Last Admin: 10/28/19 11:01 Dose: 40 mg Valsartan (Diovan -) 320 mg PO DAILY [facility] Last Admin: 10/28/19 11:01 Dose: 320 mg Vital Signs Period Temp Pulse Resp BP Sys/Voss Pulse Ox Last 24 Hr 98.7 F-100.7 F 77-81 18-20 116-147/49-62 96 Constitutional: Yes: No Distress, Calm Eyes: Yes: Conjunctiva Clear Respiratory: Yes: CTA Bilaterally Gastrointestinal: Yes: Soft Cardiovascular: Yes: Regular Rate and Rhythm JVD: No Carotid Bruit: No Heart Sounds: Yes: S1, S2 (RRR, 2/6 CORTEZ RSB with preserved S2 and no delay in carotid upstroke) Edema: No Neurological: Yes: Alert, Oriented no jaundice, diaphoresis not agitated Imaging - Results EKG: Image Reviewed (NSR 79bpm, LVH, NSST) Assessment/Plan IMP: Mechanical fall resulting in significant RLE Laceration 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
--- NOTE | 2019-10-28 12:31 | PN ---
Progress Note (short form) - Note Progress Note: 89 year old post skin graft Right leg Awake alert c/o mild discomfort some soreness , no acute pain, no calf tenderness, no chest pain Dressing changed No hematoma, no odor, noerythema Graft in place No acute bleeding No calf tenderness Culture : Pending Seen with Dr Andrea Plan : Continue leg elevation Will need PT, too to start . still needs elevation, but encourage to move Lower leg , bend knee to avoid stiffness After patient is on therapy and stable discharge to home, follow Up in wound clinic 10 days Will need a dressing change on Tuesday: Xerofrom, Bacitracin and Rosalba boot application
[2019-10-28] MEDS ORDERED: oxyCODONE HCL 5 MG TABLET PO PRN (15:02)
[2019-10-28] MEDS: ACETAMINOPHEN 325 MG TABLET (FP) PO PRN (15:49)
--- NOTE | 2019-10-28 15:51 | PN ---
Progress Note (short form) - Note Progress Note: Subjective: had fever this am . given tylenol. No HERMOSILLO . has pain in leg . no diarrhea, no cough, no dyuria. Objective: Vital Signs: Last Vital Signs Temp Pulse Resp BP Pulse Ox 98.9 F 72 18 115/51 L 96 10/28/19 14:28 10/28/19 14:28 10/28/19 14:28 10/28/19 14:28 10/27/19 21:00 Laboratory Results - last 24 hr 10/27/19 10/27/19 10/28/19 16:49 21:46 06:30 POC Glucometer 264 303 237 10/28/19 12:08 POC Glucometer 285 Physical Exam: NAD MMM Cv: RRR, 3/6 SM at base and LLSB with radiation to the carotid Lungs: CTAB Abd: soft, ND, NT NL BS Ext: examined with Dr. Ruiz . wound with a graft, tissue looks healthy. no dyscoloration. no erythema in surrounding skin. PD 2 +. LLE WITH NO EDEMA . VARICOSE VEINS AND BRUISE MEDIALLY . ASSESSMENT AND PLAN: 89 y/o lady with h/o NIDDM, HTN, Hypothyroidism, CAD and HLD who presented from wound care due to RLE wound 1- RLE wound s/p trauma: - s/p debridement and skin graft. Tissue looks healthy. - leg elevation x 25 degrees. can sit in chair with leg elevation. - Dc prophylacitc Abx - no ambulation or PT yet, until . - add tylenol and low dose oxy - add colace 2- HTN: cont her home meds of norvasc, valsartan, and metoprolol 3- Fever this am. wound does not look infected. has no diarrhea or dyuria. no clinical signs of PNA. cxray obtained and did not show any change. - obtain UA. - give incentive spirometer 4- Poorly controlled DM: - A1c 9 - cont home dose of levemir QHS - cont SSI 5- Normocytic anemia: iron studies might indicate iron def. ful l w/u as out pt . iron pills at dc 6- H/o Mod : asymptomatic. euovolemic 7- DVT PX : SQ heparin Visit type - Emergency Visit Emergency Visit: Yes ED Registration Date: 12/26/19 Care time: The patient presented to the Emergency Department on the above date and was hospitalized for further evaluation of their emergent condition. - New Patient This patient is new to me today: No - Critical Care Critical Care patient: No
[2019-10-28 21:35] LABS: EPI CELLS 0.4 /HPF (0-5/HPF); HYALINE CASTS 2 /lpf (0-8); URINE APPEARANCE CLEAR; URINE BILIRUBIN NEGATIVE (NEGATIVE); URINE COLOR YELLOW; URINE GLUCOSE (UA) 3+ (NEGATIVE); URINE KETONE NEGATIVE (NEGATIVE); URINE LEUK ESTERASE NEGATIVE (NEGATIVE); URINE NITRITE NEGATIVE (NEGATIVE); URINE PROTEIN 1+ (NEGATIVE); URINE RBC 1 /hpf (0-4); URINE UROBILINOGEN 0.2 mg/dL (0.2-1.0); URINE WBC 1 /hpf (0-5)
[2019-10-28] MEDS: INSULIN (LEVEMIR) 100 UNITS/ML UNITS SQ SCH (22:25)
[2019-10-28] MEDS: DOCUSATE SODIUM 100 MG CAPSULE (FP) PO SCH (22:25)
[2019-10-28] MEDS: ATORVASTATIN CA 10 MG TABLET (FP) PO SCH (22:25)
[2019-10-29] MEDS: INSULIN SLIDING SCALE (NOVOLOG) 1 VIAL SQ SCH ×3 (06:50→16:57)
[2019-10-29] MEDS: LEVOTHYROXINE NA 75 MCG TABLET (FP) PO SCH (06:50)
[2019-10-29 08:41] LABS: BASO % 0.2 % (0-2.0); HEMATOCRIT 27.1 % (32.4-45.2); LYMPH % 34.2 % (8-40); MCH 28.9 pg (25.7-33.7); MCHC 33.1 g/dl (32.0-36.0); MEAN CELL VOLUME 87.4 fl (80-96); MEAN PLT VOLUME 8.2 fl (7.5-11.1); MONO % 9.6 % (3.8-10.2); PLATELET COUNT 266 K/MM3 (134-434); RBC 3.11 M/mm3 (3.60-5.2); RDW 14.7 % (11.6-15.6); WHITE BLOOD COUNT 6.5 K/mm3 (4.0-10.0)
[2019-10-29] MEDS: ACETAMINOPHEN 325 MG TABLET (FP) PO PRN (09:19)
[2019-10-29] MEDS: VALSARTAN 160 MG TABLET (UD) PO SCH (09:19)
[2019-10-29] MEDS: PANTOPRAZOLE 40 MG TABLET (FP) PO SCH (09:22)
[2019-10-29] MEDS: DOCUSATE SODIUM 100 MG CAPSULE (FP) PO SCH ×2 (09:22→23:08)
[2019-10-29] MEDS: amLODIPine BESYLATE 10 MG TABLET (FP) PO SCH (09:22)
[2019-10-29] MEDS: METOPROLOL TARTRATE 50 MG TABLET (FP) PO SCH ×2 (09:24→23:08)
[2019-10-29] MEDS ORDERED: INSULIN (NOVOLOG) ASPART 100 UNITS/ML 10ML VIAL ONE (11:45)
--- NOTE | 2019-10-29 14:00 | PN ---
Physical Exam: SUBJECTIVE: Patient seen and examined. She reports decreased appetite, as well as some leg pain. She denies chills, shortness of breath, chest pain, or constipation. OBJECTIVE: Vital Signs Period Temp Pulse Resp BP Sys/Voss Pulse Ox Last 24 Hr 98.2 F-99.1 F 72-81 18-20 114-146/43-63 97 GENERAL: The patient is awake, alert, and fully oriented, in no acute distress. HEAD: Normal with no signs of trauma. EYES: PERRL, extraocular movements intact, conjunctiva clear. ENT: Ears normal, nares patent, moist mucous membranes. NECK: Trachea midline, full range of motion, supple. LUNGS: Clear to auscultation bilaterally HEART: Regular rate and rhythm, 3/6 systolic murmur ABDOMEN: Soft, nontender, nondistended, normoactive bowel sounds EXTREMITIES: Warm, well-perfused, RLE bandaged, LLE ecchymosis and varicose veins NEUROLOGICAL: Cranial nerves II through XII grossly intact. Normal speech PSYCH: Normal mood, normal affect. SKIN: Warm, dry, normal turgor Laboratory Results - last 24 hr 10/28/19 10/28/19 10/28/19 17:01 20:17 21:10 WBC RBC Hgb Hct MCV MCH MCHC RDW Plt Count MPV Absolute Neuts (auto) Neutrophils % Lymphocytes % Monocytes % Eosinophils % Basophils % Nucleated RBC % POC Glucometer 209 217 Urine Color Yellow Urine Appearance Clear Urine pH 5.0 Ur Specific [place] 1.021 Urine Protein 1+ H Urine Glucose (UA) 3+ H Urine Ketones Negative Urine Blood Negative Urine Nitrite Negative Urine Bilirubin Negative Urine Urobilinogen 0.2 Ur Leukocyte Esterase Negative Urine WBC (Auto) 1 Urine RBC (Auto) 1 Urine Casts (Auto) 2 U Epithel Cells (Auto) 0.4 Urine Bacteria (Auto) 7.0 10/29/19 10/29/19 10/29/19 05:51 08:00 11:41 WBC 6.5 RBC 3.11 L Hgb 9.0 L Hct 27.1 L MCV 87.4 MCH 28.9 MCHC 33.1 RDW 14.7 Plt Count 266 D MPV 8.2 Absolute Neuts (auto) 3.6 Neutrophils % 55.0 Lymphocytes % 34.2 D Monocytes % 9.6 Eosinophils % 1.0 D Basophils % 0.2 Nucleated RBC % 0 POC Glucometer 209 218 Urine Color Urine Appearance Urine pH Ur Specific [place] Urine Protein Urine Glucose (UA) Urine Ketones Urine Blood Urine Nitrite Urine Bilirubin Urine Urobilinogen Ur Leukocyte Esterase Urine WBC (Auto) Urine RBC (Auto) Urine Casts (Auto) U Epithel Cells (Auto) Urine Bacteria (Auto) Active Medications Generic Name Dose Route Start Last Admin Trade Name Freq PRN Reason Stop Dose Admin Acetaminophen 650 mg 10/28/19 15:02 10/29/19 09:19 Tylenol - PO 650 mg Q6H PRN Administration PAIN LEVEL 1-5 Amlodipine Besylate 10 mg 10/26/19 10:00 10/29/19 09:22 Norvasc - PO 10 mg DAILY RHIANNA Administration Atorvastatin Calcium 10 mg 10/26/19 22:00 10/28/19 22:25 Lipitor - PO 10 mg HS RHIANNA Administration Docusate Sodium 100 mg 10/28/19 22:00 10/29/19 09:22 Colace - PO 100 mg BID RHIANNA Administration Insulin Aspart 1 vial 10/26/19 00:45 10/29/19 11:45 Novolog Vial Sliding Scale - SQ 4 units TIDAC RHIANNA Administration Protocol Insulin Detemir 20 units 10/26/19 22:00 10/28/19 22:25 Levemir Vial SQ 20 units HS RHIANNA Administration Levothyroxine Sodium 75 mcg 10/26/19 07:00 10/29/19 06:50 Synthroid - PO 75 mcg DAILY@0700 RHIANNA Administration Metoprolol Tartrate 50 mg 10/26/19 01:00 10/29/19 09:24 Lopressor - PO 50 mg BID RHIANNA Administration Oxycodone HCl 2.5 mg 10/28/19 15:02 Roxicodone - PO Q6H PRN PAIN LEVEL 6-10 Pantoprazole Sodium 40 mg 10/26/19 10:00 10/29/19 09:22 Protonix - PO 40 mg DAILY RHIANNA Administration Valsartan 320 mg 10/26/19 10:00 10/29/19 09:19 Diovan - PO 320 mg DAILY RHIANNA Administration ASSESSMENT/PLAN: Ms. Dominique is an 89y/o female with HTN, HLD, IDDM, hypothyroidism, and s/p right CEA who presents following mechanical fall with RLE injury. #RLE wound s/p debridement and skin grafting, POD3 -keep bandaged -Tylenol 650mg Q6H PRN -oxycodone 2.5mg Q6H PRN -will be ready for PT on Tuesday (11/02) -can sit in chair but no weight bearing -keep leg elevated while in bed -colace PRN -wound cx pending #IDDM -A1C 9 -Levemir 20U QHS -SSI -BGMs -hold metformin -hold glimepiride -hold sitagliptin -hold pioglitazone #HTN -valsartan 320mg daily -metoprolol tartrate 50mg BID -amlodipine 10mg daily #HLD -pravastatin 40mg daily #hypothyroidism -Synthroid 75mcg #fever, resolved -CXR yesterday left pleural effusion -blood cx negative prelim -urine cx negative DVT Ppx SCD left leg, heparin FEN PO fluids monitor labs diabetic diet dispo med/surg Visit type - Emergency Visit Emergency Visit: Yes ED Registration Date: 10/25/19 Care time: The patient presented to the Emergency Department on the above date and was hospitalized for further evaluation of their emergent condition. - New Patient This patient is new to me today: No - Critical Care Critical Care patient: No - Discharge Referral Referred to [facility] Med [facility] No ATTENDING PHYSICIAN STATEMENT I saw and evaluated the patient. I reviewed the resident's note and discussed the case with the resident. I agree with the resident's findings and plan as documented. SUBJECTIVE: OBJECTIVE: ASSESSMENT AND PLAN:
[2019-10-29] MEDS: HEPARIN NA (PORCINE) 5,000 UNITS/ML 1ML VIAL SQ SCH ×2 (14:08→23:09)
--- NOTE | 2019-10-29 14:49 | PN ---
Progress Note (short form) - Note Progress Note: s: no chest pain, palps, dizziness, dyspnea Current Medications Acetaminophen (Tylenol -) 650 mg PO Q6H PRN PRN Reason: PAIN LEVEL 1-5 Last Admin: 10/29/19 09:19 Dose: 650 mg Amlodipine Besylate (Norvasc -) 10 mg PO DAILY [facility] Last Admin: 10/29/19 09:22 Dose: 10 mg Atorvastatin Calcium (Lipitor -) 10 mg PO HS [facility] Last Admin: 10/28/19 22:25 Dose: 10 mg Docusate Sodium (Colace -) 100 mg PO BID [facility] Last Admin: 10/29/19 09:22 Dose: 100 mg Heparin Sodium (Porcine) (Heparin -) 5,000 unit SQ TID [facility] Last Admin: 10/29/19 14:08 Dose: 5,000 unit Insulin Aspart (Novolog Vial Sliding Scale -) 1 vial SQ TIDAC [facility]; Protocol Last Admin: 10/29/19 11:45 Dose: 4 units Insulin Detemir (Levemir Vial) 20 units SQ [facility] Last Admin: 10/28/19 22:25 Dose: 20 units Levothyroxine Sodium (Synthroid -) 75 mcg PO DAILY@0700 [facility] Last Admin: 10/29/19 06:50 Dose: 75 mcg Metoprolol Tartrate (Lopressor -) 50 mg PO BID [facility] Last Admin: 10/29/19 09:24 Dose: 50 mg Oxycodone HCl (Roxicodone -) 2.5 mg PO Q6H PRN PRN Reason: PAIN LEVEL 6-10 Pantoprazole Sodium (Protonix -) 40 mg PO DAILY [facility] Last Admin: 10/29/19 09:22 Dose: 40 mg Valsartan (Diovan -) 320 mg PO DAILY [facility] Last Admin: 10/29/19 09:19 Dose: 320 mg Vital Signs Period Temp Pulse Resp BP Sys/Voss Pulse Ox Last 24 Hr 98.2 F-99.1 F 78-81 18-20 114-146/43-63 97 Constitutional: Yes: No Distress, Calm Eyes: Yes: Conjunctiva Clear Respiratory: Yes: CTA Bilaterally Gastrointestinal: Yes: Soft Cardiovascular: Yes: Regular Rate and Rhythm JVD: No Carotid Bruit: No Heart Sounds: Yes: S1, S2 (RRR, 2/6 CORTEZ RSB with preserved S2 and no delay in carotid upstroke) Edema: No Neurological: Yes: Alert, Oriented no jaundice, diaphoresis not agitated Imaging - Results EKG: Image Reviewed (NSR 79bpm, LVH, NSST) Assessment/Plan IMP: Mechanical fall resulting in significant RLE Laceration 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
--- NOTE | 2019-10-29 16:28 | PN ---
Teaching Attending Note Name of Resident: Renetta Arnold ATTENDING PHYSICIAN STATEMENT I saw and evaluated the patient. I reviewed the resident's note and discussed the case with the resident. I agree with the resident's findings and plan as documented. SUBJECTIVE:seen at around 9 am No pain, no fever or chills. No HERMOSILLO. no SOB or CP OBJECTIVE: NAD MMM Cv: RRR, 3/6 SM at base and LLSB with radiation to the carotid Lungs: CTAB Abd: soft, ND, NT NL BS Ext: R leg with a clean dressing. Can move toes. LLE with varicose veins and bruise medially ASSESSMENT AND PLAN: 89 y/o lady with h/o NIDDM, HTN, Hypothyroidism, CAD and HLD who presented from wound care due to RLE wound 1- RLE wound s/p trauma: - S/p debridement and skin graft. - leg elevation x 25 degrees. can sit in chair with leg elevation. - no ambulation or PT yet, until . - Con tylenol and low dose oxy - cont bowel regimen 2- HTN: cont her home meds of norvasc, valsartan, and metoprolol 3- Fever did not recur. No PNA on xray, clean UA. - cont incentive spirometer - Monitor 4- Poorly controlled DM: - A1c 9 - cont home dose of levemir QHS - cont SSI 5- Normocytic anemia: iron studies might indicate iron def. ful l w/u as out pt . iron pills at dc 6- H/o Mod : asymptomatic. euovolemic 7- DVT PX : SQ heparin
[2019-10-29] MEDS: ATORVASTATIN CA 10 MG TABLET (FP) PO SCH (23:08)
[2019-10-29] MEDS: INSULIN (LEVEMIR) 100 UNITS/ML UNITS SQ SCH (23:13)
[2019-10-30] MEDS: LEVOTHYROXINE NA 75 MCG TABLET (FP) PO SCH (06:35)
[2019-10-30] MEDS: HEPARIN NA (PORCINE) 5,000 UNITS/ML 1ML VIAL SQ SCH ×3 (06:36→21:22)
[2019-10-30] MEDS: INSULIN SLIDING SCALE (NOVOLOG) 1 VIAL SQ SCH ×3 (06:37→17:03)
[2019-10-30] MEDS: PANTOPRAZOLE 40 MG TABLET (FP) PO SCH (10:14)
[2019-10-30] MEDS: VALSARTAN 160 MG TABLET (UD) PO SCH (10:14)
[2019-10-30] MEDS: DOCUSATE SODIUM 100 MG CAPSULE (FP) PO SCH ×2 (10:14→21:23)
[2019-10-30] MEDS: METOPROLOL TARTRATE 50 MG TABLET (FP) PO SCH ×2 (10:14→21:23)
[2019-10-30] MEDS: amLODIPine BESYLATE 10 MG TABLET (FP) PO SCH (10:15)
--- NOTE | 2019-10-30 11:11 | PN ---
Progress Note (short form) - Note Progress Note: s: no chest pain, palps, dizziness, dyspnea Current Medications Generic Name Dose Route Start Last Admin Trade Name Freq PRN Reason Stop Dose Admin Acetaminophen 650 mg 10/28/19 15:02 10/29/19 09:19 Tylenol - PO 650 mg Q6H PRN Administration PAIN LEVEL 1-5 Amlodipine Besylate 10 mg 10/26/19 10:00 10/30/19 10:15 Norvasc - PO 10 mg DAILY RHIANNA Administration Atorvastatin Calcium 10 mg 10/26/19 22:00 10/29/19 23:08 Lipitor - PO 10 mg HS RHIANNA Administration Docusate Sodium 100 mg 10/28/19 22:00 10/30/19 10:14 Colace - PO 100 mg BID RHIANNA Administration Heparin Sodium (Porcine) 5,000 unit 10/29/19 14:00 10/30/19 06:36 Heparin - SQ 5,000 unit TID RHIANNA Administration Insulin Aspart 1 vial 10/26/19 00:45 10/30/19 06:37 Novolog Vial Sliding Scale - SQ 2 units TIDAC RHIANNA Administration Protocol Insulin Detemir 20 units 10/26/19 22:00 10/29/19 23:13 Levemir Vial SQ 20 units HS RHIANNA Administration Levothyroxine Sodium 75 mcg 10/26/19 07:00 10/30/19 06:35 Synthroid - PO 75 mcg DAILY@0700 RHIANNA Administration Metoprolol Tartrate 50 mg 10/26/19 01:00 10/30/19 10:14 Lopressor - PO 50 mg BID RHIANNA Administration Oxycodone HCl 2.5 mg 10/28/19 15:02 Roxicodone - PO Q6H PRN PAIN LEVEL 6-10 Pantoprazole Sodium 40 mg 10/26/19 10:00 10/30/19 10:14 Protonix - PO 40 mg DAILY RHIANNA Administration Valsartan 320 mg 10/26/19 10:00 10/30/19 10:14 Diovan - PO 320 mg DAILY RHIANNA Administration Vital Signs Period Temp Pulse Resp BP Sys/Voss Pulse Ox Last 24 Hr 98.3 F-99.2 F 72-83 18-18 114-150/45-60 Constitutional: Yes: No Distress, Calm Eyes: Yes: Conjunctiva Clear Respiratory: Yes: CTA Bilaterally Gastrointestinal: Yes: Soft Cardiovascular: Yes: Regular Rate and Rhythm JVD: No Carotid Bruit: No Heart Sounds: Yes: S1, S2 (RRR, 2/6 CORTEZ RSB with preserved S2 and no delay in carotid upstroke) Edema: No Neurological: Yes: Alert, Oriented no jaundice, diaphoresis not agitated CBC, BMP 10/29/19 08:00 10/27/19 06:30 Imaging - Results EKG: Image Reviewed (NSR 79bpm, LVH, NSST) Assessment/Plan IMP: Mechanical fall resulting in significant RLE Laceration 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
--- NOTE | 2019-10-30 15:49 | PN ---
Physical Exam: SUBJECTIVE: Patient seen and examined. She reports intermittent right LE pain. She also reports constipation. She denies chest pain or shortness of breath. Appetite is still low. OBJECTIVE: Vital Signs Period Temp Pulse Resp BP Sys/Voss Pulse Ox Last 24 Hr 97.4 F-98.6 F 79-87 18-18 122-150/59-70 GENERAL: The patient is awake, alert, and fully oriented, in no acute distress. HEAD: Normal with no signs of trauma. EYES: PERRL, extraocular movements intact, conjunctiva clear. ENT: Ears normal, nares patent, moist mucous membranes. NECK: Trachea midline, full range of motion, supple. LUNGS: Clear to auscultation bilaterally HEART: Regular rate and rhythm, 3/6 left systolic murmur with radiation to carotid ABDOMEN: Soft, nontender, nondistended, normoactive bowel sounds EXTREMITIES: Warm, well-perfused, RLE bandaged, LLE ecchymosis and varicose veins NEUROLOGICAL: Cranial nerves II through XII grossly intact. Normal speech PSYCH: Normal mood, normal affect. SKIN: Warm, dry, normal turgor Laboratory Results - last 24 hr 10/29/19 10/29/19 10/30/19 16:12 23:11 06:07 POC Glucometer 187 279 155 10/30/19 11:29 POC Glucometer 218 Active Medications Generic Name Dose Route Start Last Admin Trade Name Freq PRN Reason Stop Dose Admin Acetaminophen 650 mg 10/28/19 15:02 10/29/19 09:19 Tylenol - PO 650 mg Q6H PRN Administration PAIN LEVEL 1-5 Amlodipine Besylate 10 mg 10/26/19 10:00 10/30/19 10:15 Norvasc - PO 10 mg DAILY RHIANNA Administration Atorvastatin Calcium 10 mg 10/26/19 22:00 10/29/19 23:08 Lipitor - PO 10 mg HS RHIANNA Administration Docusate Sodium 100 mg 10/28/19 22:00 10/30/19 10:14 Colace - PO 100 mg BID RHIANNA Administration Heparin Sodium (Porcine) 5,000 unit 10/29/19 14:00 10/30/19 13:55 Heparin - SQ 5,000 unit TID RHIANNA Administration Insulin Aspart 1 vial 10/26/19 00:45 10/30/19 11:38 Novolog Vial Sliding Scale - SQ 4 units TIDAC RHIANNA Administration Protocol Insulin Detemir 20 units 10/26/19 22:00 10/29/19 23:13 Levemir Vial SQ 20 units HS RHIANNA Administration Levothyroxine Sodium 75 mcg 10/26/19 07:00 10/30/19 06:35 Synthroid - PO 75 mcg DAILY@0700 RHIANNA Administration Metoprolol Tartrate 50 mg 10/26/19 01:00 10/30/19 10:14 Lopressor - PO 50 mg BID RHIANNA Administration Oxycodone HCl 2.5 mg 10/28/19 15:02 Roxicodone - PO Q6H PRN PAIN LEVEL 6-10 Pantoprazole Sodium 40 mg 10/26/19 10:00 10/30/19 10:14 Protonix - PO 40 mg DAILY RHIANNA Administration Valsartan 320 mg 10/26/19 10:00 10/30/19 10:14 Diovan - PO 320 mg DAILY RHIANNA Administration ASSESSMENT/PLAN: Ms. Dominique is an 89y/o female with HTN, HLD, IDDM, hypothyroidism, and s/p right CEA who presents following mechanical fall with RLE injury. #RLE wound s/p debridement and skin grafting, POD4 -keep bandaged, wound care on 11/01 -Tylenol 650mg Q6H PRN -oxycodone 2.5mg Q6H PRN -can sit in chair but no weight bearing -keep leg elevated -wound cx negative -PT, excluding RLE, until 11/02 #constipation -miralax daily -colace 100mg BID PRN #IDDM -A1C 9 -Levemir 20U QHS -SSI -BGMs -hold metformin -hold glimepiride -hold sitagliptin -hold pioglitazone #HTN -valsartan 320mg daily -metoprolol tartrate 50mg BID -amlodipine 10mg daily #HLD -pravastatin 40mg daily #hypothyroidism -Synthroid 75mcg #fever, resolved -CXR left pleural effusion, asymptomatic -blood cx negative -urine cx negative DVT Ppx SCD left leg, heparin FEN PO fluids monitor labs diabetic diet dispo med/surg placement Visit type - Emergency Visit Emergency Visit: Yes ED Registration Date: 10/25/19 Care time: The patient presented to the Emergency Department on the above date and was hospitalized for further evaluation of their emergent condition. - New Patient This patient is new to me today: No - Critical Care Critical Care patient: No - Discharge Referral Referred to [facility] Med P.C.: No ATTENDING PHYSICIAN STATEMENT I saw and evaluated the patient. I reviewed the resident's note and discussed the case with the resident. I agree with the resident's findings and plan as documented. SUBJECTIVE: OBJECTIVE: ASSESSMENT AND PLAN:
--- NOTE | 2019-10-30 16:01 | PATH ---
Surgical Pathology Report Patient Name: ANTONINO GARRETT [facility]. Rec. #: [id number] /Age/Gender: 1930 (Age: 89) / F Account: [id number] Location: [address] [place] [address]/[facility] Taken: 10/26/2019 Received: 10/29/2019 Reported: 10/30/2019 Physicians: Calin Ruiz M.D. Specimen(s) Received A: DEBRIDED TISSUE B: HEMATOMA Clinical History Wound of right lower extremity Final Diagnosis A. DEBRIDED TISSUE, DEBRIDEMENT: SKIN AND SUBCUTANEOUS TISSUE WITH ULCERATION, ACUTE INFLAMMATION, AND HEMORRHAGE. B. HAMARTOMA, EVACUATION: PORTIONS OF ADIPOSE TISSUE AND ORGANIZING HAMARTOMA. Electronically Signed Khoi Palomo M.D. Gross Description A. Received in formalin labeled "debrided tissue," is a 3.5 x 3.0 x 0.4 cm aggregate of brown-black, necrotic skin and soft tissue. Hairspring Studder sections are submitted in one cassette. B. Received in formalin labeled "hematoma," is a 3.7 x 2.4 x 0.5 cm aggregate of red brown blood clot and soft tissue. Hairspring Studder sections are submitted in one cassette. /10/29/2019 saudi10/29/2019
[2019-10-30] MEDS ORDERED: POLYETHYLENE GLYCOL 3350 119 GM BTL PO ONE (17:28)
--- NOTE | 2019-10-30 17:30 | PN ---
Teaching Attending Note Name of Resident: Renetta Arnold ATTENDING PHYSICIAN STATEMENT I saw and evaluated the patient. I reviewed the resident's note and discussed the case with the resident. I agree with the resident's findings and plan as documented. SUBJECTIVE: No fever or chills. No HERMOSILLO . pain in R leg is better . constipated OBJECTIVE: NAD MMM Cv: RRR, 3/6 SM at base and LLSB with radiation to the carotid Lungs: CTAB Abd: soft, ND, NT NL BS Ext: R leg with a clean dressing. Can move toes, has nl feeling in toes . LLE with varicose veins and bruise medially ASSESSMENT AND PLAN: 89 y/o lady with h/o NIDDM, HTN, Hypothyroidism, CAD and HLD who presented from wound care due to RLE wound 1- RLE wound s/p trauma: - S/p debridement and skin graft. - Next dressing change to be done on by composite technician. - leg elevation x 25 degrees. can sit in chair with leg elevation. - no ambulation, until Tuesday - Con tylenol and low dose oxy - addmiralax fro constipation . cont colace 2- HTN: cont her home meds of norvasc, valsartan, and metoprolol 3- Fever did not recur. No PNA on xray, clean UA. - cont incentive spirometer - Monitor 4- Poorly controlled DM: - A1c 9 - cont home dose of levemir QHS - cont SSI 5- Normocytic anemia: iron studies might indicate iron def. ful l w/u as out pt . iron pills at dc 6- H/o Mod : asymptomatic. euovolemic 7- DVT PX : SQ heparin
[2019-10-30] MEDS ORDERED: INSULIN (NOVOLOG) ASPART 100 UNITS/ML 10ML VIAL ONE (21:16)
[2019-10-30] MEDS: INSULIN (LEVEMIR) 100 UNITS/ML UNITS SQ SCH (21:22)
[2019-10-30] MEDS: ATORVASTATIN CA 10 MG TABLET (FP) PO SCH (21:23)
[2019-10-31] MEDS: HEPARIN NA (PORCINE) 5,000 UNITS/ML 1ML VIAL SQ SCH ×3 (06:05→21:12)
[2019-10-31] MEDS: INSULIN SLIDING SCALE (NOVOLOG) 1 VIAL SQ SCH ×3 (06:05→16:38)
[2019-10-31] MEDS: LEVOTHYROXINE NA 75 MCG TABLET (FP) PO SCH (06:05)
--- NOTE | 2019-10-31 09:02 | PN ---
Teaching Attending Note Name of Resident: Renetta Arnold ATTENDING PHYSICIAN STATEMENT I saw and evaluated the patient. I reviewed the resident's note and discussed the case with the resident. I agree with the resident's findings and plan as documented. SUBJECTIVE: Patient is comfortable with no acute distress, pleasant lady. Vital Signs Temperature 98.3 F 10/31/19 06:00 Pulse Rate 86 10/31/19 06:00 Respiratory Rate 18 10/31/19 06:00 Blood Pressure 144/60 10/31/19 06:00 O2 Sat by Pulse Oximetry (%) 97 10/29/19 09:00 GENERAL: The patient is awake, alert, and fully oriented, in no acute distress. HEAD: Normal with no signs of trauma. EYES: PERRL, extraocular movements intact, sclera anicteric, conjunctiva clear. ENT: Ears normal, oropharynx clear without exudates, moist mucous membranes. NECK: Trachea midline, full range of motion, supple. LUNGS: Breath sounds equal, clear to auscultation bilaterally, no wheezes, no crackles, no accessory muscle use. HEART: 3/6 SM at base and LLSB with radiation to the carotid ,RRR, ABDOMEN: Soft, nontender, nondistended, normoactive bowel sounds, no guarding, no rebound, no hepatosplenomegaly, no masses. EXTREMITIES: 2+ pulses, R leg with a clean dressing. Can move toes, has nl feeling in toes . LLE with varicose veins and bruise medially NEUROLOGICAL: Cranial nerves II through XII grossly intact. Normal speech, gait not observed. PSYCH: Normal mood, normal affect. SKIN: Warm, dry, normal turgor, no rashes or lesions noted CBCD WBC 6.5 K/mm3 (4.0-10.0) 10/29/19 08:00 RBC 3.11 M/mm3 (3.60-5.2) L 10/29/19 08:00 Hgb 9.0 GM/dL (10.7-15.3) L 10/29/19 08:00 Hct 27.1 % (32.4-45.2) L 10/29/19 08:00 MCV 87.4 fl (80-96) 10/29/19 08:00 MCHC 33.1 g/dl (32.0-36.0) 10/29/19 08:00 RDW 14.7 % (11.6-15.6) 10/29/19 08:00 Plt Count 266 K/MM3 (134-434) D 10/29/19 08:00 MPV 8.2 fl (7.5-11.1) 10/29/19 08:00 CMP Sodium 139 mmol/L (136-145) 10/27/19 06:30 Potassium 3.6 mmol/L (3.5-5.1) 10/27/19 06:30 Chloride 107 mmol/L (98-107) 10/27/19 06:30 Carbon Dioxide 26 mmol/L (21-32) 10/27/19 06:30 Anion Gap 6 MMOL/L (8-16) L 10/27/19 06:30 BUN 19.6 mg/dL (7-18) H 10/27/19 06:30 Creatinine 0.8 mg/dL (0.55-1.3) 10/27/19 06:30 Random Glucose 216 mg/dL (74-106) H 10/27/19 06:30 Calcium 8.5 mg/dL (8.5-10.1) 10/27/19 06:30 Total Bilirubin 0.5 mg/dL (0.2-1) 10/26/19 08:00 AST 12 U/L (15-37) L 10/26/19 08:00 ALT 19 U/L (13-61) 10/26/19 08:00 Alkaline Phosphatase 58 U/L (45-117) 10/26/19 08:00 Total Protein 6.2 g/dl (6.4-8.2) L 10/26/19 08:00 Albumin 3.0 g/dl (3.4-5.0) L 10/26/19 08:00 Current Medications Generic Name Dose Route Start Last Admin Trade Name Freq PRN Reason Stop Dose Admin Acetaminophen 650 mg 10/28/19 15:02 10/29/19 09:19 Tylenol - PO 650 mg Q6H PRN Administration PAIN LEVEL 1-5 Amlodipine Besylate 10 mg 10/26/19 10:00 10/30/19 10:15 Norvasc - PO 10 mg DAILY RHIANNA Administration Atorvastatin Calcium 10 mg 10/26/19 22:00 10/30/19 21:23 Lipitor - PO 10 mg HS RHIANNA Administration Docusate Sodium 100 mg 10/28/19 22:00 10/30/19 21:23 Colace - PO 100 mg BID RHIANNA Administration Heparin Sodium (Porcine) 5,000 unit 10/29/19 14:00 10/31/19 06:05 Heparin - SQ 5,000 unit TID RHIANNA Administration Insulin Aspart 1 vial 10/26/19 00:45 10/31/19 06:05 Novolog Vial Sliding Scale - SQ 4 units TIDAC [facility] Administration Protocol Insulin Detemir 20 units 10/26/19 22:00 10/30/19 21:22 Levemir Vial SQ 20 units HS [facility] Administration Levothyroxine Sodium 75 mcg 10/26/19 07:00 10/31/19 06:05 Synthroid - PO 75 mcg DAILY@0700 [facility] Administration Metoprolol Tartrate 50 mg 10/26/19 01:00 10/30/19 21:23 Lopressor - PO 50 mg BID [facility] Administration Oxycodone HCl 2.5 mg 10/28/19 15:02 Roxicodone - PO Q6H PRN PAIN LEVEL 6-10 Pantoprazole Sodium 40 mg 10/26/19 10:00 10/30/19 10:14 Protonix - PO 40 mg DAILY [facility] Administration Polyethylene Glycol 17 gm 10/31/19 10:00 Miralax (For Daily Use) - PO DAILY [facility] Valsartan 320 mg 10/26/19 10:00 10/30/19 10:14 Diovan - PO 320 mg DAILY [facility] Administration Home Medications Medication Instructions Recorded Amlodipine Besylate 10 mg PO DAILY 12/29/17 Levothyroxine [Synthroid -] 75 mcg PO DAILY 12/29/17 Metformin HCl [Glucophage] 1,000 mg PO BID 12/29/17 Metoprolol Tartrate 50 mg PO BID 12/29/17 Pioglitazone HCl [Actos] 30 mg PO DAILY 12/29/17 Pravastatin Sodium [Pravachol -] 40 mg PO DAILY 12/29/17 Sitagliptin Phosphate [Januvia] 100 mg PO DAILY 12/29/17 Glimepiride 2 mg PO DAILY 05/11/18 Cephalexin [Keflex] 1 tab PO DAILY 10/25/19 Valsartan 320 mg PO DAILY 10/25/19 Insulin Detemir [Levemir Flextouch] 20 units SQ HS 10/26/19 Microbiology 10/28/19 07:10 Blood - Peripheral Venous Blood Culture - Preliminary NO GROWTH OBTAINED AFTER 72 HOURS, INCUBATION TO CONTINUE FOR 2 DAYS. 10/28/19 07:02 Blood - Peripheral Venous Blood Culture - Preliminary NO GROWTH OBTAINED AFTER 72 HOURS, INCUBATION TO CONTINUE FOR 2 DAYS. 10/27/19 15:53 Leg - Right Lower Gram Stain - Final 10/27/19 15:53 Leg - Right Lower Wound Culture - Final NO AEROBIC OR ANAEROBIC GROWTH OBTAINED. 10/25/19 22:45 Urine - Urine Clean Catch Urine Culture - Final NO GROWTH OBTAINED ASSESSMENT AND PLAN: patient is an 89yof with Pmhx of NIDDM, HTN, Hypothyroidism, CAD and HLD who presented from wound care due to RLE wound # Acute RLE wound s/p trauma: S/p debridement and skin graft. leg elevation x 25 degrees, Next dressing change will be by ben day artist or dr Ruiz . can sit in chair with leg elevation. no ambulation, until Tuesday. Con tylenol and low dose oxy # Constipation:continue miralax and colace, glycerin if needed # HTN: cont her home meds of norvasc, valsartan, and metoprolol #DM uncontrolled: A1c 9, cont home dose of levemir QHS , SSI # Normocytic anemia: iron studies might indicate iron def. full w/u as out pt . iron pills at dc # H/o Mod : asymptomatic. euovolemic DVT PX : SQ heparin
[2019-10-31] MEDS: DOCUSATE SODIUM 100 MG CAPSULE (FP) PO SCH ×2 (10:08→21:12)
[2019-10-31] MEDS: METOPROLOL TARTRATE 50 MG TABLET (FP) PO SCH ×2 (10:08→21:12)
[2019-10-31] MEDS: amLODIPine BESYLATE 10 MG TABLET (FP) PO SCH (10:08)
[2019-10-31] MEDS: PANTOPRAZOLE 40 MG TABLET (FP) PO SCH (10:08)
[2019-10-31] MEDS: VALSARTAN 160 MG TABLET (UD) PO SCH (10:08)
[2019-10-31] MEDS: POLYETHYLENE GLYCOL 3350 119 GM BTL PO SCH (10:09)
[2019-10-31] MEDS ORDERED: INSULIN (NOVOLOG) ASPART 100 UNITS/ML 10ML VIAL ONE (11:36)
--- NOTE | 2019-10-31 18:59 | PN ---
Physical Exam: SUBJECTIVE: Patient seen and examined at bedside, sitting comfortably in chair. She is s/p debridement and skin graft. She offers no complaints today. OBJECTIVE: Vital Signs Period Temp Pulse Resp BP Sys/Voss Pulse Ox Last 24 Hr 97.7 F-98.3 F 77-86 18-18 115-144/43-60 GENERAL: AOx3, in no acute distress, Sinhala speaking HEAD: NCAT EYES: WINTER, EOMI, conjunctiva clear. ENT: Ears normal, nares patent, oropharynx clear without exudates. Moist mucous membranes. NECK: Normal range of motion, supple without lymphadenopathy, JVD, or masses. LUNGS: CTAB. No wheezes, and no crackles. No accessory muscle use. HEART: RRR s1 s2 systolic murmur ABDOMEN: Soft, BS present in all 4 quadrants, non-distended, no JVD, MUSCULOSKELETAL: No bony deformities or tenderness. No CVA tenderness. UPPER EXTREMITIES: 2+ pulses, warm, well-perfused. No cyanosis. No clubbing. No peripheral edema. LOWER EXTREMITIES: RLE in surgical dressing. 2+ pulses, warm, well-perfused. No calf tenderness. No peripheral edema. NEUROLOGICAL: No focal deficits. Cranial nerves II-XII intact. Normal speech. Gait not appreciated. PSYCHIATRIC: Cooperative. Good eye contact. Appropriate mood and affect. SKIN: Warm, dry, normal turgor, no rashes or lesions noted, normal capillary refill. Laboratory Results - last 24 hr 10/30/19 10/31/19 10/31/19 21:21 06:04 11:33 POC Glucometer 289 228 333 10/31/19 16:36 POC Glucometer 250 Active Medications Generic Name Dose Route Start Last Admin Trade Name Freq PRN Reason Stop Dose Admin Acetaminophen 650 mg 10/28/19 15:02 10/29/19 09:19 Tylenol - PO 650 mg Q6H PRN Administration PAIN LEVEL 1-5 Amlodipine Besylate 10 mg 10/26/19 10:00 10/31/19 10:08 Norvasc - PO 10 mg DAILY RHIANNA Administration Atorvastatin Calcium 10 mg 10/26/19 22:00 10/30/19 21:23 Lipitor - PO 10 mg HS RHIANNA Administration Docusate Sodium 100 mg 10/28/19 22:00 10/31/19 10:08 Colace - PO 100 mg BID RHIANNA Administration Heparin Sodium (Porcine) 5,000 unit 10/29/19 14:00 10/31/19 14:07 Heparin - SQ 5,000 unit TID RHIANNA Administration Insulin Aspart 1 vial 10/26/19 00:45 10/31/19 16:38 Novolog Vial Sliding Scale - SQ 4 units TIDAC RHIANNA Administration Protocol Insulin Detemir 20 units 10/26/19 22:00 10/30/19 21:22 Levemir Vial SQ 20 units HS RHIANNA Administration Levothyroxine Sodium 75 mcg 10/26/19 07:00 10/31/19 06:05 Synthroid - PO 75 mcg DAILY@0700 RHIANNA Administration Metoprolol Tartrate 50 mg 10/26/19 01:00 10/31/19 10:08 Lopressor - PO 50 mg BID RHIANNA Administration Oxycodone HCl 2.5 mg 10/28/19 15:02 Roxicodone - PO Q6H PRN PAIN LEVEL 6-10 Pantoprazole Sodium 40 mg 10/26/19 10:00 10/31/19 10:08 Protonix - PO 40 mg DAILY RHIANNA Administration Polyethylene Glycol 17 gm 10/31/19 10:00 10/31/19 10:09 Miralax (For Daily Use) - PO 17 grams DAILY RHIANNA Administration Valsartan 320 mg 10/26/19 10:00 10/31/19 10:08 Diovan - PO 320 mg DAILY RHIANNA Administration ASSESSMENT/PLAN: 89 y/o female PMH DM, HTN, HLD, hypothyroidism, and CAD whom presented from wound care due to RLE wound # RLE wound s/p trauma - Missed step at home - S/p debridement and skin graft. - Leg elevation x 25 degrees. - Next dressing change 01 November 2018 by surgery - Cont cephazolin IV q8h - Tylenol for pain # HTN - Cont. home regmien Norvasc 10 mg PO QD Valsartan 320 mg PO QD Metoprolol 50 mg PO BID # Moderate - Asymptomatic - Euovolemic - Outpatient echo surveillance # Poorly controlled DM - A1c 9 - Continue home dose of levemir 20 units sq HS - ISS # Normocytic anemia - Iron studies might indicate iron def. - F/u out pt # DVT ppx - Heparin # Disposition - Med/surg Visit type - Emergency Visit Emergency Visit: No - New Patient This patient is new to me today: No - Critical Care Critical Care patient: No ATTENDING PHYSICIAN STATEMENT I saw and evaluated the patient. I reviewed the resident's note and discussed the case with the resident. I agree with the resident's findings and plan as documented. SUBJECTIVE: OBJECTIVE: ASSESSMENT AND PLAN:
[2019-10-31] MEDS: ACETAMINOPHEN 325 MG TABLET (FP) PO PRN (21:11)
[2019-10-31] MEDS: ATORVASTATIN CA 10 MG TABLET (FP) PO SCH (21:12)
[2019-10-31] MEDS: INSULIN (LEVEMIR) 100 UNITS/ML UNITS SQ SCH (21:13)
[2019-11-01] MEDS: HEPARIN NA (PORCINE) 5,000 UNITS/ML 1ML VIAL SQ SCH ×3 (06:27→21:13)
[2019-11-01] MEDS: LEVOTHYROXINE NA 75 MCG TABLET (FP) PO SCH (06:27)
[2019-11-01] MEDS: INSULIN SLIDING SCALE (NOVOLOG) 1 VIAL SQ SCH ×3 (06:27→17:22)
[2019-11-01 07:46] LABS: HEMATOCRIT 25.1 % (32.4-45.2); HEMOGLOBIN 8.3 GM/dL (10.7-15.3); MCH 28.9 pg (25.7-33.7); MCHC 33.2 g/dl (32.0-36.0); PLATELET COUNT 274 K/MM3 (134-434); RBC 2.89 M/mm3 (3.60-5.2); RDW 14.6 % (11.6-15.6); WHITE BLOOD COUNT 4.2 K/mm3 (4.0-10.0)
[2019-11-01 08:34] LABS: ALBUMIN 2.6 g/dl (3.4-5.0); BILIRUBIN,TOTAL 0.4 mg/dL (0.2-1); BLOOD UREA NITROGEN 12.5 mg/dL (7-18); CALCIUM 8.5 mg/dL (8.5-10.1); CREATININE 0.8 mg/dL (0.55-1.3); MAGNESIUM 2.1 mg/dL (1.8-2.4); PHOSPHOROUS 3.1 mg/dL (2.5-4.9); POTASSIUM 4.2 mmol/L (3.5-5.1); TOT PROT 6.1 g/dl (6.4-8.2)
[2019-11-01] MEDS: PANTOPRAZOLE 40 MG TABLET (FP) PO SCH (10:26)
[2019-11-01] MEDS: POLYETHYLENE GLYCOL 3350 119 GM BTL PO SCH (10:26)
[2019-11-01] MEDS: DOCUSATE SODIUM 100 MG CAPSULE (FP) PO SCH ×2 (10:26→21:13)
[2019-11-01] MEDS: amLODIPine BESYLATE 10 MG TABLET (FP) PO SCH (10:26)
[2019-11-01] MEDS: VALSARTAN 160 MG TABLET (UD) PO SCH (10:26)
[2019-11-01] MEDS: METOPROLOL TARTRATE 50 MG TABLET (FP) PO SCH ×2 (10:26→21:13)
--- NOTE | 2019-11-01 11:45 | PN ---
Physical Exam: SUBJECTIVE: Patient seen and examined. She reports having RLE pain overnight but was relieved with Tylenol. She denies chest pain, shortness of breath, abdominal pain, nausea, or vomiting. She is able to sit in chair. OBJECTIVE: Vital Signs Period Temp Pulse Resp BP Sys/Voss Pulse Ox Last 24 Hr 97.7 F-98.2 F 75-77 18-18 115-142/43-60 GENERAL: The patient is awake, alert, and fully oriented, in no acute distress. HEAD: Normal with no signs of trauma. EYES: PERRL, extraocular movements intact, conjunctiva clear. ENT: Ears normal, nares patent, moist mucous membranes. NECK: Trachea midline, full range of motion, supple. LUNGS: Clear to auscultation bilaterally HEART: Regular rate and rhythm, 3/6 left systolic murmur with radiation to carotid ABDOMEN: Soft, nontender, nondistended, normoactive bowel sounds EXTREMITIES: Warm, well-perfused, RLE bandaged, no surrounding erythema NEUROLOGICAL: Cranial nerves II through XII grossly intact. Normal speech PSYCH: Normal mood, normal affect. SKIN: Warm, dry, normal turgor Laboratory Results - last 24 hr 10/31/19 10/31/19 11/01/19 11:33 16:36 05:26 WBC RBC Hgb Hct MCV MCH MCHC RDW Plt Count MPV Sodium Potassium Chloride Carbon Dioxide Anion Gap BUN Creatinine Est GFR (CKD-EPI)AfAm Est GFR (CKD-EPI)NonAf POC Glucometer 333 250 203 Random Glucose Calcium Phosphorus Magnesium Total Bilirubin AST ALT Alkaline Phosphatase Total Protein Albumin 11/01/19 11/01/19 11/01/19 06:50 06:50 11:05 WBC 4.2 RBC 2.89 L Hgb 8.3 L Hct 25.1 L MCV 87.0 MCH 28.9 MCHC 33.2 RDW 14.6 Plt Count 274 MPV 8.0 Sodium 142 Potassium 4.2 Chloride 107 Carbon Dioxide 30 Anion Gap 5 L BUN 12.5 Creatinine 0.8 Est GFR (CKD-EPI)AfAm 76.29 Est GFR (CKD-EPI)NonAf 65.82 POC Glucometer 150 Random Glucose 187 H Calcium 8.5 Phosphorus 3.1 Magnesium 2.1 Total Bilirubin 0.4 AST 14 L ALT 12 L Alkaline Phosphatase 62 Total Protein 6.1 L Albumin 2.6 L Active Medications Generic Name Dose Route Start Last Admin Trade Name Freq PRN Reason Stop Dose Admin Acetaminophen 650 mg 10/28/19 15:02 10/31/19 21:11 Tylenol - PO 650 mg Q6H PRN Administration PAIN LEVEL 1-5 Amlodipine Besylate 10 mg 10/26/19 10:00 11/01/19 10:26 Norvasc - PO 10 mg DAILY RHIANNA Administration Atorvastatin Calcium 10 mg 10/26/19 22:00 10/31/19 21:12 Lipitor - PO 10 mg HS RHIANNA Administration Docusate Sodium 100 mg 10/28/19 22:00 11/01/19 10:26 Colace - PO 100 mg BID RHIANNA Administration Heparin Sodium (Porcine) 5,000 unit 10/29/19 14:00 11/01/19 06:27 Heparin - SQ 5,000 unit TID RHIANNA Administration Insulin Aspart 1 vial 10/26/19 00:45 11/01/19 06:27 Novolog Vial Sliding Scale - SQ 4 units TIDAC RHIANNA Administration Protocol Insulin Detemir 20 units 10/26/19 22:00 10/31/19 21:13 Levemir Vial SQ 20 units HS RHIANNA Administration Levothyroxine Sodium 75 mcg 10/26/19 07:00 11/01/19 06:27 Synthroid - PO 75 mcg DAILY@0700 RHIANNA Administration Metoprolol Tartrate 50 mg 10/26/19 01:00 11/01/19 10:26 Lopressor - PO 50 mg BID RHIANNA Administration Oxycodone HCl 2.5 mg 10/28/19 15:02 Roxicodone - PO Q6H PRN PAIN LEVEL 6-10 Pantoprazole Sodium 40 mg 10/26/19 10:00 11/01/19 10:26 Protonix - PO 40 mg DAILY RHIANNA Administration Polyethylene Glycol 17 gm 10/31/19 10:00 11/01/19 10:26 Miralax (For Daily Use) - PO 17 grams DAILY RHIANNA Administration Valsartan 320 mg 10/26/19 10:00 11/01/19 10:26 Diovan - PO 320 mg DAILY RHIANNA Administration ASSESSMENT/PLAN: Ms. Dominique is an 89y/o female with HTN, HLD, IDDM, hypothyroidism, and s/p right CEA who presents following mechanical fall with RLE injury. #RLE wound s/p debridement and skin grafting, POD6 -keep bandaged, wound care today -Tylenol 650mg Q6H PRN -oxycodone 2.5mg Q6H PRN -can sit in chair but no weight bearing -keep leg elevated -wound cx negative -PT, excluding RLE, until 11/02 #constipation -miralax daily -colace 100mg BID PRN #IDDM -A1C 9 -Levemir 20U QHS -SSI -BGMs- have been in 200s -hold metformin -hold glimepiride -hold sitagliptin -hold pioglitazone #HTN -valsartan 320mg daily -metoprolol tartrate 50mg BID -amlodipine 10mg daily #HLD -pravastatin 40mg daily #hypothyroidism -Synthroid 75mcg #fever, resolved -CXR left pleural effusion, asymptomatic -blood cx negative -urine cx negative DVT Ppx SCD left leg, heparin FEN PO fluids monitor labs diabetic diet dispo med/surg placement Visit type - Emergency Visit Emergency Visit: Yes ED Registration Date: 10/25/19 Care time: The patient presented to the Emergency Department on the above date and was hospitalized for further evaluation of their emergent condition. - New Patient This patient is new to me today: No - Critical Care Critical Care patient: No - Discharge Referral Referred to [facility] Med P.C[facility] No ATTENDING PHYSICIAN STATEMENT I saw and evaluated the patient. I reviewed the resident's note and discussed the case with the resident. I agree with the resident's findings and plan as documented. SUBJECTIVE: OBJECTIVE: ASSESSMENT AND PLAN:
--- NOTE | 2019-11-01 15:40 | PN ---
Progress Note (short form) - Note Progress Note: s: no chest pain, palps, dizziness, dyspnea Current Medications Acetaminophen (Tylenol -) 650 mg PO Q6H PRN PRN Reason: PAIN LEVEL 1-5 Last Admin: 10/31/19 21:11 Dose: 650 mg Amlodipine Besylate (Norvasc -) 10 mg PO DAILY [facility] Last Admin: 11/01/19 10:26 Dose: 10 mg Atorvastatin Calcium (Lipitor -) 10 mg PO [facility] Last Admin: 10/31/19 21:12 Dose: 10 mg Docusate Sodium (Colace -) 100 mg PO BID [facility] Last Admin: 11/01/19 10:26 Dose: 100 mg Heparin Sodium (Porcine) (Heparin -) 5,000 unit SQ TID [facility] Last Admin: 11/01/19 14:25 Dose: 5,000 unit Insulin Aspart (Novolog Vial Sliding Scale -) 1 vial SQ TIDAC [facility]; Protocol Last Admin: 11/01/19 11:36 Dose: Not Given Insulin Detemir (Levemir Vial) 20 units SQ [facility] Last Admin: 10/31/19 21:13 Dose: 20 units Levothyroxine Sodium (Synthroid -) 75 mcg PO DAILY@0700 [facility] Last Admin: 11/01/19 06:27 Dose: 75 mcg Metoprolol Tartrate (Lopressor -) 50 mg PO BID [facility] Last Admin: 11/01/19 10:26 Dose: 50 mg Oxycodone HCl (Roxicodone -) 2.5 mg PO Q6H PRN PRN Reason: PAIN LEVEL 6-10 Pantoprazole Sodium (Protonix -) 40 mg PO DAILY [facility] Last Admin: 11/01/19 10:26 Dose: 40 mg Polyethylene Glycol (Miralax (For Daily Use) -) 17 gm PO DAILY [facility] Last Admin: 11/01/19 10:26 Dose: 17 grams Valsartan (Diovan -) 320 mg PO DAILY [facility] Last Admin: 11/01/19 10:26 Dose: 320 mg Vital Signs Period Temp Pulse Resp BP Sys/Voss Pulse Ox Last 24 Hr 98 F-98.7 F 72-76 18-18 125-142/59-61 Constitutional: Yes: No Distress, Calm Eyes: Yes: Conjunctiva Clear Respiratory: Yes: CTA Bilaterally Gastrointestinal: Yes: Soft Cardiovascular: Yes: Regular Rate and Rhythm JVD: No Carotid Bruit: No Heart Sounds: Yes: S1, S2 (RRR, 2/6 CORTEZ RSB with preserved S2 and no delay in carotid upstroke) Edema: No Neurological: Yes: Alert, Oriented no jaundice, diaphoresis not agitated Imaging - Results EKG: Image Reviewed (NSR 79bpm, LVH, NSST) Assessment/Plan IMP: Mechanical fall resulting in significant RLE Laceration 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
--- NOTE | 2019-11-01 16:53 | PN ---
Teaching Attending Note Name of Resident: Renetta Arnold ATTENDING PHYSICIAN STATEMENT I saw and evaluated the patient. I reviewed the resident's note and discussed the case with the resident. I agree with the resident's findings and plan as documented. SUBJECTIVE: Patient is comfortable, wound care team at bedside. changing the dressing. Vital Signs Temperature 98.7 F 11/01/19 13:15 Pulse Rate 72 11/01/19 13:15 Respiratory Rate 18 11/01/19 13:15 Blood Pressure 125/61 11/01/19 13:15 O2 Sat by Pulse Oximetry (%) 97 10/29/19 09:00 GENERAL: The patient is awake, alert, and fully oriented, in no acute distress. HEAD: Normal with no signs of trauma. EYES: PERRL, extraocular movements intact, sclera anicteric, conjunctiva clear. ENT: Ears normal, oropharynx clear without exudates, moist mucous membranes. NECK: Trachea midline, full range of motion, supple. LUNGS: Breath sounds equal, clear to auscultation bilaterally, no wheezes, no crackles, no accessory muscle use. HEART: 3/6 SM at base and LLSB with radiation to the carotid ,RRR, ABDOMEN: Soft, NT, ND, normoactive bowel sounds, no guarding, no rebound, no hepatosplenomegaly, no masses. EXTREMITIES: 2+ pulses, R leg graft is clean, xeroform applied by the wound care nurses with [place] in place. LLE with varicose veins and bruise medially NEUROLOGICAL: Cranial nerves II through XII grossly intact. Normal speech, gait not observed. PSYCH: Normal mood, normal affect. SKIN: Warm, dry, normal turgor, no rashes or lesions noted CBCD WBC 4.2 K/mm3 (4.0-10.0) 11/01/19 06:50 RBC 2.89 M/mm3 (3.60-5.2) L 11/01/19 06:50 Hgb 8.3 GM/dL (10.7-15.3) L 11/01/19 06:50 Hct 25.1 % (32.4-45.2) L 11/01/19 06:50 MCV 87.0 fl (80-96) 11/01/19 06:50 MCHC 33.2 g/dl (32.0-36.0) 11/01/19 06:50 RDW 14.6 % (11.6-15.6) 11/01/19 06:50 Plt Count 274 K/MM3 (134-434) 11/01/19 06:50 MPV 8.0 fl (7.5-11.1) 11/01/19 06:50 CMP Sodium 142 mmol/L (136-145) 11/01/19 06:50 Potassium 4.2 mmol/L (3.5-5.1) 11/01/19 06:50 Chloride 107 mmol/L (98-107) 11/01/19 06:50 Carbon Dioxide 30 mmol/L (21-32) 11/01/19 06:50 Anion Gap 5 MMOL/L (8-16) L 11/01/19 06:50 BUN 12.5 mg/dL (7-18) 11/01/19 06:50 Creatinine 0.8 mg/dL (0.55-1.3) 11/01/19 06:50 Random Glucose 187 mg/dL (74-106) H 11/01/19 06:50 Calcium 8.5 mg/dL (8.5-10.1) 11/01/19 06:50 Total Bilirubin 0.4 mg/dL (0.2-1) 11/01/19 06:50 AST 14 U/L (15-37) L 11/01/19 06:50 ALT 12 U/L (13-61) L 11/01/19 06:50 Alkaline Phosphatase 62 U/L (45-117) 11/01/19 06:50 Total Protein 6.1 g/dl (6.4-8.2) L 11/01/19 06:50 Albumin 2.6 g/dl (3.4-5.0) L 11/01/19 06:50 Current Medications Generic Name Dose Route Start Last Admin Trade Name Freq PRN Reason Stop Dose Admin Acetaminophen 650 mg 10/28/19 15:02 10/31/19 21:11 Tylenol - PO 650 mg Q6H PRN Administration PAIN LEVEL 1-5 Amlodipine Besylate 10 mg 10/26/19 10:00 11/01/19 10:26 Norvasc - PO 10 mg DAILY RHIANNA Administration Atorvastatin Calcium 10 mg 10/26/19 22:00 10/31/19 21:12 Lipitor - PO 10 mg HS RHIANNA Administration Docusate Sodium 100 mg 10/28/19 22:00 11/01/19 10:26 Colace - PO 100 mg BID RHIANNA Administration Heparin Sodium (Porcine) 5,000 unit 10/29/19 14:00 11/01/19 14:25 Heparin - SQ 5,000 unit TID [facility] Administration Insulin Aspart 1 vial 10/26/19 00:45 11/01/19 11:36 Novolog Vial Sliding Scale - SQ Not Given TIDAC [facility] Protocol Insulin Detemir 20 units 10/26/19 22:00 10/31/19 21:13 Levemir Vial SQ 20 units HS [facility] Administration Levothyroxine Sodium 75 mcg 10/26/19 07:00 11/01/19 06:27 Synthroid - PO 75 mcg DAILY@0700 [facility] Administration Metoprolol Tartrate 50 mg 10/26/19 01:00 11/01/19 10:26 Lopressor - PO 50 mg BID RHIANNA Administration Oxycodone HCl 2.5 mg 10/28/19 15:02 Roxicodone - PO Q6H PRN PAIN LEVEL 6-10 Pantoprazole Sodium 40 mg 10/26/19 10:00 11/01/19 10:26 Protonix - PO 40 mg DAILY [facility] Administration Polyethylene Glycol 17 gm 10/31/19 10:00 11/01/19 10:26 Miralax (For Daily Use) - PO 17 grams DAILY [facility] Administration Valsartan 320 mg 10/26/19 10:00 11/01/19 10:26 Diovan - PO 320 mg DAILY RHIANNA Administration Home Medications Medication Instructions Recorded Amlodipine Besylate 10 mg PO DAILY 12/29/17 Levothyroxine [Synthroid -] 75 mcg PO DAILY 12/29/17 Metformin HCl [Glucophage] 1,000 mg PO BID 12/29/17 Metoprolol Tartrate 50 mg PO BID 12/29/17 Pioglitazone HCl [Actos] 30 mg PO DAILY 12/29/17 Pravastatin Sodium [Pravachol -] 40 mg PO DAILY 12/29/17 Sitagliptin Phosphate [Januvia] 100 mg PO DAILY 12/29/17 Glimepiride 2 mg PO DAILY 05/11/18 Cephalexin [Keflex] 1 tab PO DAILY 10/25/19 Valsartan 320 mg PO DAILY 10/25/19 Insulin Detemir [Levemir Flextouch] 20 units SQ HS 10/26/19 Microbiology 10/28/19 07:10 Blood - Peripheral Venous Blood Culture - Preliminary NO GROWTH OBTAINED AFTER 72 HOURS, INCUBATION TO CONTINUE FOR 2 DAYS. 10/28/19 07:02 Blood - Peripheral Venous Blood Culture - Preliminary NO GROWTH OBTAINED AFTER 72 HOURS, INCUBATION TO CONTINUE FOR 2 DAYS. 10/27/19 15:53 Leg - Right Lower Gram Stain - Final 10/27/19 15:53 Leg - Right Lower Wound Culture - Final NO AEROBIC OR ANAEROBIC GROWTH OBTAINED. 10/25/19 22:45 Urine - Urine Clean Catch Urine Culture - Final NO GROWTH OBTAINED ASSESSMENT AND PLAN: patient is an 89yof with Pmhx of NIDDM, HTN, Hypothyroidism, CAD and HLD who presented from wound care due to RLE wound # Acute RLE wound s/p trauma s/p debridment and skin graft:continue to elevate leg x 25 degrees, Next dressing change with be wound care clinic as per Dr. Ruiz on a weekly basis , nurses are in contact and with discussion regarding the graft and the wound. Weekly wound care, by 's wound care clinic, available on Wednesdays. patient can sit on the chair with leg elevation. no ambulation till tomorrow, can go to the bathroom with a walker or bedside commode if she prefers. Con tylenol and low dose oxy # Constipation:continue miralax and colace, glycerin if needed # HTN: cont her home meds of norvasc, valsartan, and metoprolol #DM uncontrolled: A1c 9, cont home dose of levemir QHS , SSI # Normocytic anemia: iron studies might indicate iron def. ful l w/u as out pt . iron pills at dc # H/o Mod : asymptomatic. euovolemic DVT PX : SQ heparin as per patient can go home in am.
[2019-11-01] MEDS ORDERED: INSULIN (NOVOLOG) ASPART 100 UNITS/ML 10ML VIAL ONE (17:19)
[2019-11-01] MEDS: ATORVASTATIN CA 10 MG TABLET (FP) PO SCH (21:13)
[2019-11-01] MEDS: INSULIN (LEVEMIR) 100 UNITS/ML UNITS SQ SCH (21:14)
[2019-11-02] MEDS: LEVOTHYROXINE NA 75 MCG TABLET (FP) PO SCH (06:40)
[2019-11-02] MEDS: HEPARIN NA (PORCINE) 5,000 UNITS/ML 1ML VIAL SQ SCH ×3 (06:40→21:28)
[2019-11-02] MEDS: INSULIN SLIDING SCALE (NOVOLOG) 1 VIAL SQ SCH ×3 (06:41→17:20)
[2019-11-02] MEDS ORDERED: INSULIN (LEVEMIR) 100 UNITS/ML UNITS SQ ONE (06:46)
[2019-11-02] MEDS ORDERED: INSULIN (NOVOLOG) ASPART 100 UNITS/ML 10ML VIAL ONE (06:47)
[2019-11-02 08:02] LABS: BASO % 0.5 % (0-2.0); EOS % 1.5 % (0-4.5); HEMATOCRIT 25.6 % (32.4-45.2); HEMOGLOBIN 8.4 GM/dL (10.7-15.3); LYMPH % 37.1 % (8-40); MCH 28.8 pg (25.7-33.7); MCHC 32.9 g/dl (32.0-36.0); MEAN CELL VOLUME 87.5 fl (80-96); MONO % 13.7 % (3.8-10.2); NEUT % 47.2 % (42.8-82.8); PLATELET COUNT 305 K/MM3 (134-434); RBC 2.92 M/mm3 (3.60-5.2); RDW 14.9 % (11.6-15.6); WHITE BLOOD COUNT 4.6 K/mm3 (4.0-10.0)
[2019-11-02 08:45] LABS: ALBUMIN 2.8 g/dl (3.4-5.0); BILIRUBIN,TOTAL 0.5 mg/dL (0.2-1); BLOOD UREA NITROGEN 11.5 mg/dL (7-18); CALCIUM 8.8 mg/dL (8.5-10.1); CREATININE 0.7 mg/dL (0.55-1.3); POTASSIUM 4.5 mmol/L (3.5-5.1); TOT PROT 6.3 g/dl (6.4-8.2)
[2019-11-02] MEDS: POLYETHYLENE GLYCOL 3350 119 GM BTL PO SCH ×2 (10:12→21:31)
[2019-11-02] MEDS: PANTOPRAZOLE 40 MG TABLET (FP) PO SCH (10:13)
[2019-11-02] MEDS: VALSARTAN 160 MG TABLET (UD) PO SCH (10:13)
[2019-11-02] MEDS: METOPROLOL TARTRATE 50 MG TABLET (FP) PO SCH ×2 (10:13→21:30)
[2019-11-02] MEDS: amLODIPine BESYLATE 10 MG TABLET (FP) PO SCH (10:13)
[2019-11-02] MEDS: DOCUSATE SODIUM 100 MG CAPSULE (FP) PO SCH ×2 (10:13→21:29)
--- NOTE | 2019-11-02 10:42 | PN ---
Progress Note (short form) - Note Progress Note: s: no chest pain, palps, dizziness, dyspnea Current Medications Generic Name Dose Route Start Last Admin Trade Name Freq PRN Reason Stop Dose Admin Acetaminophen 650 mg 10/28/19 15:02 10/31/19 21:11 Tylenol - PO 650 mg Q6H PRN Administration PAIN LEVEL 1-5 Amlodipine Besylate 10 mg 10/26/19 10:00 11/02/19 10:13 Norvasc - PO 10 mg DAILY RHIANNA Administration Atorvastatin Calcium 10 mg 10/26/19 22:00 11/01/19 21:13 Lipitor - PO 10 mg HS RHIANNA Administration Docusate Sodium 100 mg 10/28/19 22:00 11/02/19 10:13 Colace - PO 100 mg BID RHIANNA Administration Heparin Sodium (Porcine) 5,000 unit 10/29/19 14:00 11/02/19 06:40 Heparin - SQ 5,000 unit TID RHIANNA Administration Insulin Aspart 1 vial 10/26/19 00:45 11/02/19 06:41 Novolog Vial Sliding Scale - SQ Not Given TIDAC [facility] Protocol Insulin Detemir 20 units 10/26/19 22:00 11/01/19 21:14 Levemir Vial SQ 20 units HS RHIANNA Administration Levothyroxine Sodium 75 mcg 10/26/19 07:00 11/02/19 06:40 Synthroid - PO 75 mcg DAILY@0700 RHIANNA Administration Metoprolol Tartrate 50 mg 10/26/19 01:00 11/02/19 10:13 Lopressor - PO 50 mg BID RHIANNA Administration Oxycodone HCl 2.5 mg 10/28/19 15:02 Roxicodone - PO Q6H PRN PAIN LEVEL 6-10 Pantoprazole Sodium 40 mg 10/26/19 10:00 11/02/19 10:13 Protonix - PO 40 mg DAILY RHIANNA Administration Polyethylene Glycol 17 gm 10/31/19 10:00 11/02/19 10:12 Miralax (For Daily Use) - PO 17 grams DAILY RHIANNA Administration Valsartan 320 mg 10/26/19 10:00 11/02/19 10:13 Diovan - PO 320 mg DAILY RHIANNA Administration Vital Signs Period Temp Pulse Resp BP Sys/Voss Pulse Ox Last 24 Hr 98.4 F-99.0 F 72-85 18-20 125-142/61-68 92 Constitutional: Yes: No Distress, Calm Eyes: Yes: Conjunctiva Clear Respiratory: Yes: CTA Bilaterally Gastrointestinal: Yes: Soft Cardiovascular: Yes: Regular Rate and Rhythm JVD: No Carotid Bruit: No Heart Sounds: Yes: S1, S2 (RRR, 2/6 CORTEZ RSB with preserved S2 and no delay in carotid upstroke) Edema: No Neurological: Yes: Alert, Oriented no jaundice, diaphoresis not agitated CBC, BMP 11/02/19 06:50 11/02/19 06:50 Imaging - Results EKG: Image Reviewed (NSR 79bpm, LVH, NSST) Assessment/Plan IMP: Mechanical fall resulting in significant RLE Laceration 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
--- NOTE | 2019-11-02 11:15 | PN ---
Physical Exam: SUBJECTIVE: Patient seen and examined. She reports mild intermittent warmth and itching of RLE. She denies fever, chills, nausea, or vomiting. She reports improved appetite. OBJECTIVE: Vital Signs Period Temp Pulse Resp BP Sys/Voss Pulse Ox Last 24 Hr 98.4 F-99.0 F 72-85 18-20 125-142/61-68 92 GENERAL: The patient is awake, alert, and fully oriented, in no acute distress. HEAD: Normal with no signs of trauma. EYES: PERRL, extraocular movements intact, conjunctiva clear. ENT: Ears normal, nares patent, moist mucous membranes. NECK: Trachea midline, full range of motion, supple. LUNGS: Clear to auscultation bilaterally HEART: Regular rate and rhythm, 3/6 left systolic murmur with radiation to carotid ABDOMEN: Soft, nontender, nondistended, normoactive bowel sounds EXTREMITIES: Warm, well-perfused, RLE bandaged, no surrounding erythema, LLE ecchymosis and varicose veins NEUROLOGICAL: Cranial nerves II through XII grossly intact. Normal speech PSYCH: Normal mood, normal affect. SKIN: Warm, dry, normal turgor Laboratory Results - last 24 hr 11/01/19 11/01/19 11/01/19 11:05 16:56 21:12 WBC RBC Hgb Hct MCV MCH MCHC RDW Plt Count MPV Absolute Neuts (auto) Neutrophils % Lymphocytes % Monocytes % Eosinophils % Basophils % Nucleated RBC % Sodium Potassium Chloride Carbon Dioxide Anion Gap BUN Creatinine Est GFR (CKD-EPI)AfAm Est GFR (CKD-EPI)NonAf POC Glucometer 150 264 154 Random Glucose Calcium Magnesium Total Bilirubin AST ALT Alkaline Phosphatase Total Protein Albumin 11/02/19 11/02/19 11/02/19 05:50 06:50 06:50 WBC 4.6 RBC 2.92 L Hgb 8.4 L Hct 25.6 L MCV 87.5 MCH 28.8 MCHC 32.9 RDW 14.9 Plt Count 305 MPV 8.0 Absolute Neuts (auto) 2.2 Neutrophils % 47.2 Lymphocytes % 37.1 Monocytes % 13.7 H Eosinophils % 1.5 Basophils % 0.5 Nucleated RBC % 0 Sodium 141 Potassium 4.5 Chloride 106 Carbon Dioxide 30 Anion Gap 6 L BUN 11.5 Creatinine 0.7 Est GFR (CKD-EPI)AfAm 89.66 Est GFR (CKD-EPI)NonAf 77.36 POC Glucometer 141 Random Glucose 126 H Calcium 8.8 Magnesium 2.0 Total Bilirubin 0.5 AST 23 ALT 17 Alkaline Phosphatase 69 Total Protein 6.3 L Albumin 2.8 L Active Medications Generic Name Dose Route Start Last Admin Trade Name Freq PRN Reason Stop Dose Admin Acetaminophen 650 mg 10/28/19 15:02 10/31/19 21:11 Tylenol - PO 650 mg Q6H PRN Administration PAIN LEVEL 1-5 Amlodipine Besylate 10 mg 10/26/19 10:00 11/02/19 10:13 Norvasc - PO 10 mg DAILY RHIANNA Administration Atorvastatin Calcium 10 mg 10/26/19 22:00 11/01/19 21:13 Lipitor - PO 10 mg HS RHIANNA Administration Docusate Sodium 100 mg 10/28/19 22:00 11/02/19 10:13 Colace - PO 100 mg BID RHIANNA Administration Heparin Sodium (Porcine) 5,000 unit 10/29/19 14:00 11/02/19 06:40 Heparin - SQ 5,000 unit TID RHIANNA Administration Insulin Aspart 1 vial 10/26/19 00:45 11/02/19 06:41 Novolog Vial Sliding Scale - SQ Not Given TIDAC [facility] Protocol Insulin Detemir 20 units 10/26/19 22:00 11/01/19 21:14 Levemir Vial SQ 20 units HS RHIANNA Administration Levothyroxine Sodium 75 mcg 10/26/19 07:00 11/02/19 06:40 Synthroid - PO 75 mcg DAILY@0700 RHIANNA Administration Metoprolol Tartrate 50 mg 10/26/19 01:00 11/02/19 10:13 Lopressor - PO 50 mg BID RHIANNA Administration Oxycodone HCl 2.5 mg 10/28/19 15:02 Roxicodone - PO Q6H PRN PAIN LEVEL 6-10 Pantoprazole Sodium 40 mg 10/26/19 10:00 11/02/19 10:13 Protonix - PO 40 mg DAILY RHIANNA Administration Polyethylene Glycol 17 gm 10/31/19 10:00 11/02/19 10:12 Miralax (For Daily Use) - PO 17 grams DAILY R[facility]ANNA Administration Valsartan 320 mg 10/26/19 10:00 11/02/19 10:13 Diovan - PO 320 mg DAILY RHIANNA Administration ASSESSMENT/PLAN: Ms. Crecco is an 89y/o female with HTN, HLD, IDDM, hypothyroidism, and s/p right CEA who presents following mechanical fall with RLE injury. #RLE wound s/p debridement and skin grafting, POD 7 -keep bandaged, wound care per Dr. Ruiz -Tylenol 650mg Q6H PRN -oxycodone 2.5mg Q6H PRN -wound cx negative -PT #constipation -miralax daily -colace 100mg BID PRN #IDDM -A1C 9 -Levemir 20U QHS -SSI -BGMs- 140-260 -hold metformin -hold glimepiride -hold sitagliptin -hold pioglitazone #HTN -valsartan 320mg daily -metoprolol tartrate 50mg BID -amlodipine 10mg daily #HLD -pravastatin 40mg daily #hypothyroidism -Synthroid 75mcg #fever, resolved -CXR left pleural effusion, asymptomatic -blood cx negative -urine cx negative DVT Ppx SCD left leg, heparin FEN PO fluids monitor labs diabetic diet dispo med/surg placement ATTENDING PHYSICIAN STATEMENT I saw and evaluated the patient. I reviewed the resident's note and discussed the case with the resident. I agree with the resident's findings and plan as documented. SUBJECTIVE: OBJECTIVE: ASSESSMENT AND PLAN:
--- NOTE | 2019-11-02 16:40 | PN ---
Teaching Attending Note Name of Resident: Renetta Arnold ATTENDING PHYSICIAN STATEMENT I saw and evaluated the patient. I reviewed the resident's note and discussed the case with the resident. I agree with the resident's findings and plan as documented. SUBJECTIVE: Patient is feeling well with no acute distress, but does not want to go home since has a concern regarding her RLE graft. Vital Signs Temperature 8.4 F L 11/02/19 13:20 Pulse Rate 74 11/02/19 13:20 Respiratory Rate 20 11/02/19 13:20 Blood Pressure 123/68 11/02/19 13:20 O2 Sat by Pulse Oximetry (%) 92 L 11/01/19 21:00 GENERAL: The patient is awake, alert, and fully oriented, in no acute distress. HEAD: Normal with no signs of trauma. EYES: PERRL, extraocular movements intact, sclera anicteric, conjunctiva clear. ENT: Ears normal, oropharynx clear without exudates, moist mucous membranes. NECK: Trachea midline, full range of motion, supple. LUNGS: Breath sounds equal, clear to auscultation bilaterally, no wheezes, no crackles, no accessory muscle use. HEART: 3/6 SM at base and LLSB with radiation to the carotid ,RRR, ABDOMEN: Soft, NT, ND, normoactive bowel sounds, no guarding, no rebound, no hepatosplenomegaly, no masses. EXTREMITIES: 2+ pulses, R leg graft is clean, xeroform applied by the wound care nurses with Unaboot in place. LLE with varicose veins and bruise medially NEUROLOGICAL: Cranial nerves II through XII grossly intact. Normal speech, gait not observed. PSYCH: Normal mood, normal affect. SKIN: Warm, dry, normal turgor, no rashes or lesions noted CBCD WBC 4.6 K/mm3 (4.0-10.0) 11/02/19 06:50 RBC 2.92 M/mm3 (3.60-5.2) L 11/02/19 06:50 Hgb 8.4 GM/dL (10.7-15.3) L 11/02/19 06:50 Hct 25.6 % (32.4-45.2) L 11/02/19 06:50 MCV 87.5 fl (80-96) 11/02/19 06:50 MCHC 32.9 g/dl (32.0-36.0) 11/02/19 06:50 RDW 14.9 % (11.6-15.6) 11/02/19 06:50 Plt Count 305 K/MM3 (134-434) 11/02/19 06:50 MPV 8.0 fl (7.5-11.1) 11/02/19 06:50 CMP Sodium 141 mmol/L (136-145) 11/02/19 06:50 Potassium 4.5 mmol/L (3.5-5.1) 11/02/19 06:50 Chloride 106 mmol/L (98-107) 11/02/19 06:50 Carbon Dioxide 30 mmol/L (21-32) 11/02/19 06:50 Anion Gap 6 MMOL/L (8-16) L 11/02/19 06:50 BUN 11.5 mg/dL (7-18) 11/02/19 06:50 Creatinine 0.7 mg/dL (0.55-1.3) 11/02/19 06:50 Random Glucose 126 mg/dL (74-106) H 11/02/19 06:50 Calcium 8.8 mg/dL (8.5-10.1) 11/02/19 06:50 Total Bilirubin 0.5 mg/dL (0.2-1) 11/02/19 06:50 AST 23 U/L (15-37) 11/02/19 06:50 ALT 17 U/L (13-61) 11/02/19 06:50 Alkaline Phosphatase 69 U/L (45-117) 11/02/19 06:50 Total Protein 6.3 g/dl (6.4-8.2) L 11/02/19 06:50 Albumin 2.8 g/dl (3.4-5.0) L 11/02/19 06:50 Current Medications Generic Name Dose Route Start Last Admin Trade Name Freq PRN Reason Stop Dose Admin Acetaminophen 650 mg 10/28/19 15:02 10/31/19 21:11 Tylenol - PO 650 mg Q6H PRN Administration PAIN LEVEL 1-5 Amlodipine Besylate 10 mg 10/26/19 10:00 11/02/19 10:13 Norvasc - PO 10 mg DAILY RHIANNA Administration Atorvastatin Calcium 10 mg 10/26/19 22:00 11/01/19 21:13 Lipitor - PO 10 mg HS RHIANNA Administration Docusate Sodium 100 mg 10/28/19 22:00 11/02/19 10:13 Colace - PO 100 mg BID RHIANNA Administration Heparin Sodium (Porcine) 5,000 unit 10/29/19 14:00 11/02/19 06:40 Heparin - SQ 5,000 unit TID [facility] Administration Insulin Aspart 1 vial 10/26/19 00:45 11/02/19 11:30 Novolog Vial Sliding Scale - SQ 6 units TIDAC [facility] Administration Protocol Insulin Detemir 20 units 10/26/19 22:00 11/01/19 21:14 Levemir Vial SQ 20 units HS [facility] Administration Levothyroxine Sodium 75 mcg 10/26/19 07:00 11/02/19 06:40 Synthroid - PO 75 mcg DAILY@0700 [facility] Administration Metoprolol Tartrate 50 mg 10/26/19 01:00 11/02/19 10:13 Lopressor - PO 50 mg BID [facility] Administration Oxycodone HCl 2.5 mg 10/28/19 15:02 Roxicodone - PO Q6H PRN PAIN LEVEL 6-10 Pantoprazole Sodium 40 mg 10/26/19 10:00 11/02/19 10:13 Protonix - PO 40 mg DAILY [facility] Administration Polyethylene Glycol 17 gm 11/02/19 22:00 Miralax (For Daily Use) - PO BID [facility] Valsartan 320 mg 10/26/19 10:00 11/02/19 10:13 Diovan - PO 320 mg DAILY [facility] Administration Home Medications Medication Instructions Recorded Amlodipine Besylate 10 mg PO DAILY 12/29/17 Levothyroxine [Synthroid -] 75 mcg PO DAILY 12/29/17 Metformin HCl [Glucophage] 1,000 mg PO BID 12/29/17 Metoprolol Tartrate 50 mg PO BID 12/29/17 Pioglitazone HCl [Actos] 30 mg PO DAILY 12/29/17 Pravastatin Sodium [Pravachol -] 40 mg PO DAILY 12/29/17 Sitagliptin Phosphate [Januvia] 100 mg PO DAILY 12/29/17 Glimepiride 2 mg PO DAILY 05/11/18 Cephalexin [Keflex] 1 tab PO DAILY 10/25/19 Valsartan 320 mg PO DAILY 10/25/19 Insulin Detemir [Levemir Flextouch] 20 units SQ HS 10/26/19 Microbiology 10/28/19 07:10 Blood - Peripheral Venous Blood Culture - Preliminary NO GROWTH OBTAINED AFTER 72 HOURS, INCUBATION TO CONTINUE FOR 2 DAYS. 10/28/19 07:02 Blood - Peripheral Venous Blood Culture - Preliminary NO GROWTH OBTAINED AFTER 72 HOURS, INCUBATION TO CONTINUE FOR 2 DAYS. 10/27/19 15:53 Leg - Right Lower Gram Stain - Final 10/27/19 15:53 Leg - Right Lower Wound Culture - Final NO AEROBIC OR ANAEROBIC GROWTH OBTAINED. 10/25/19 22:45 Urine - Urine Clean Catch Urine Culture - Final NO GROWTH OBTAINED ASSESSMENT AND PLAN: patient is an 89yof with Pmhx of NIDDM, HTN, Hypothyroidism, CAD and HLD who presented from wound care due to RLE wound # Acute RLE wound s/p trauma s/p debridment and skin graft: continue to elevate leg x 25 degrees,weekly wound care and follow up in the office, Next dressing change with be wound care clinic as per Dr. Ruiz . Weekly wound care, by 's wound care clinic, available on Wednesdays. patient can sit on the chair with leg elevation. can ambulate to the bathroom, can go to the bathroom with a walker or bedside commode if she prefers. Con tylenol and low dose oxy # Constipation:continue miralax and colace, glycerin if needed # HTN: cont her home meds of norvasc, valsartan, and metoprolol # Mild elevation of [place] still within nl range: will lower Diovan to 160mg from 320mg #DM uncontrolled: A1c 9, cont home dose of levemir QHS , SSI #Normocytic anemia: iron studies might indicate iron def. ful l w/u as out pt . iron pills at dc # H/o Mod : asymptomatic. euovolemic DVT PX : SQ heparin as per patient can go home today ,or to rehab if she wishes.
--- NOTE | 2019-11-02 17:45 | DS ---
Physical Exam: SUBJECTIVE: Patient seen and examined. She reports mild intermittent warmth and itching of RLE. She denies fever, chills, nausea, or vomiting. She reports improved appetite. OBJECTIVE: Vital Signs Period Temp Pulse Resp BP Sys/Voss Pulse Ox Last 24 Hr 8.4 F-99.0 F 73-100 -20 123-142/66-68 92 PHYSICAL EXAM GENERAL: The patient is awake, alert, and fully oriented, in no acute distress. HEAD: Normal with no signs of trauma. EYES: PERRL, extraocular movements intact, conjunctiva clear. ENT: Ears normal, nares patent, moist mucous membranes. NECK: Trachea midline, full range of motion, supple. LUNGS: Clear to auscultation bilaterally HEART: Regular rate and rhythm, 3/6 left systolic murmur with radiation to carotid ABDOMEN: Soft, nontender, nondistended, normoactive bowel sounds EXTREMITIES: Warm, well-perfused, RLE bandaged, no surrounding erythema, LLE ecchymosis and varicose veins NEUROLOGICAL: Cranial nerves II through XII grossly intact. Normal speech PSYCH: Normal mood, normal affect. SKIN: Warm, dry, normal turgor LABS Laboratory Results - last 24 hr 11/01/19 11/02/19 11/02/19 21:12 05:50 06:50 WBC 4.6 RBC 2.92 L Hgb 8.4 L Hct 25.6 L MCV 87.5 MCH 28.8 MCHC 32.9 RDW 14.9 Plt Count 305 MPV 8.0 Absolute Neuts (auto) 2.2 Neutrophils % 47.2 Lymphocytes % 37.1 Monocytes % 13.7 H Eosinophils % 1.5 Basophils % 0.5 Nucleated RBC % 0 Sodium Potassium Chloride Carbon Dioxide Anion Gap BUN Creatinine Est GFR (CKD-EPI)AfAm Est GFR (CKD-EPI)NonAf POC Glucometer 154 141 Random Glucose Calcium Magnesium Total Bilirubin AST ALT Alkaline Phosphatase Total Protein Albumin 11/02/19 11/02/19 11/02/19 06:50 11:29 16:48 WBC RBC Hgb Hct MCV MCH MCHC RDW Plt Count MPV Absolute Neuts (auto) Neutrophils % Lymphocytes % Monocytes % Eosinophils % Basophils % Nucleated RBC % Sodium 141 Potassium 4.5 Chloride 106 Carbon Dioxide 30 Anion Gap 6 L BUN 11.5 Creatinine 0.7 Est GFR (CKD-EPI)AfAm 89.66 Est GFR (CKD-EPI)NonAf 77.36 POC Glucometer 255 129 Random Glucose 126 H Calcium 8.8 Magnesium 2.0 Total Bilirubin 0.5 AST 23 ALT 17 Alkaline Phosphatase 69 Total Protein 6.3 L Albumin 2.8 L HOSPITAL COURSE: Ms. Dominique is an 89y/o female with HTN, HLD, IDDM, hypothyroidism, and s/p right CEA who presents following mechanical fall with RLE injury. The wound was debrided and skin grafting performed. Cardiology clearance was obtained for surgery. Post-op wound care was done by Dr. Ruiz and wound care team. Pain was controlled with Tylenol. Wound culture was negative. No abx were administered during the course. Pt had one time low grade fever post-op. Chest x -ray showed small left pleural effusion but pt was asymptomatic and blood and urine cx were negative. Pt was instructed to follow up on Wednesdays with Dr. Ruiz at the wound care clinic at [facility]. On admission, pt's BG was 333. A1C was 9.0. Pt's home Levemir 20U was given nightly but home PO meds were held and SSI was substituted. BG ranged in 100s- 200s. HTN meds were continued. Dose of valsartan was decreased to 160mg on last day of admission. Statin was continued. Pt was instructed to f/u with primary care, cardiology, and wound care. Date of Admission:10/25/19 Date of Discharge: 11/02/19 Minutes to complete discharge: 35 Discharge Summary Problems reviewed: Yes Reason For Visit: WOUND OF LOWER EXTREMITY Current Active Problems Leg wound, right (Acute) Condition: Stable - Instructions Diet, Activity, Other Instructions: Hospital Visit: You were admitted to the hospital to repair a wound on your right leg. The bruise on your left leg was also monitored. Medications: Resume your home medications. You may take Tylenol 650mg every 4-6 hours. Do not take more than 4 grams a day. Follow Up: Dr. Alvarez, primary care, [address] Ruiz, plastic surgery, next Tuesday at the [facility] on the 5th floor of the hospital. Call [phone] Guardado, cardiology, 1 week after discharge. Other Instructions: Return to the emergency room or call 911 if you have increased redness, pain, or swelling in your right leg, fever above 101, chest pain, or difficulty breathing. Keep wound bandaged until you follow up with Dr. Ruiz. Referrals: Felix Guardado MD [Staff Physician] - Calin Ruiz MD [Staff Physician] - Roc Alvarez MD [Primary Care Provider] - Disposition: HOME - Home Medications Comprehensive Discharge Medication List: Ambulatory Orders Amlodipine Besylate 10 mg PO DAILY 12/29/17 Levothyroxine [Synthroid -] 75 mcg PO DAILY 12/29/17 Metformin HCl [Glucophage] 1,000 mg PO BID 12/29/17 Metoprolol Tartrate 50 mg PO BID 12/29/17 Pioglitazone HCl [Actos] 30 mg PO DAILY 12/29/17 Pravastatin Sodium [Pravachol -] 40 mg PO DAILY 12/29/17 Sitagliptin Phosphate [Januvia] 100 mg PO DAILY 12/29/17 Glimepiride 2 mg PO DAILY 05/11/18 Valsartan 320 mg PO DAILY 10/25/19 Insulin Detemir [Levemir Flextouch] 20 units SQ HS 10/26/19 This patient is new to me today: No Emergency Visit: Yes ED Registration Date: 10/25/19 Care time: The patient presented to the Emergency Department on the above date and was hospitalized for further evaluation of their emergent condition. Critical Care patient: No - Discharge Referral Referred to [facility] No ATTENDING PHYSICIAN STATEMENT I saw and evaluated the patient. I reviewed the resident's note and discussed the case with the resident. I agree with the resident's findings and plan as documented. SUBJECTIVE: OBJECTIVE: ASSESSMENT AND PLAN:
[2019-11-02] MEDS: INSULIN (LEVEMIR) 100 UNITS/ML UNITS SQ SCH (21:28)
[2019-11-02] MEDS: ATORVASTATIN CA 10 MG TABLET (FP) PO SCH (21:29)
[2019-11-03] MEDS: LEVOTHYROXINE NA 75 MCG TABLET (FP) PO SCH (07:04)
[2019-11-03] MEDS: INSULIN SLIDING SCALE (NOVOLOG) 1 VIAL SQ SCH ×3 (07:04→16:16)
[2019-11-03] MEDS: HEPARIN NA (PORCINE) 5,000 UNITS/ML 1ML VIAL SQ SCH ×3 (07:05→21:42)
[2019-11-03] MEDS: VALSARTAN 160 MG TABLET (UD) PO SCH (09:38)
[2019-11-03] MEDS: amLODIPine BESYLATE 10 MG TABLET (FP) PO SCH (09:38)
[2019-11-03] MEDS: ACETAMINOPHEN 325 MG TABLET (FP) PO PRN (09:38)
[2019-11-03] MEDS: DOCUSATE SODIUM 100 MG CAPSULE (FP) PO SCH ×2 (09:38→21:42)
[2019-11-03] MEDS: PANTOPRAZOLE 40 MG TABLET (FP) PO SCH (09:38)
[2019-11-03] MEDS: METOPROLOL TARTRATE 50 MG TABLET (FP) PO SCH ×2 (09:38→21:42)
[2019-11-03] MEDS: POLYETHYLENE GLYCOL 3350 119 GM BTL PO SCH ×2 (09:41→21:42)
[2019-11-03] MEDS ORDERED: INSULIN (NOVOLOG) ASPART 100 UNITS/ML 10ML VIAL ONE (11:31)
--- NOTE | 2019-11-03 16:46 | PN ---
Progress Note (short form) - Note Progress Note: Patient is comfortable with no new changes. Vital Signs Temperature 98.3 F 11/03/19 13:37 Pulse Rate 71 11/03/19 13:37 Respiratory Rate 18 11/03/19 13:37 Blood Pressure 115/63 11/03/19 13:37 O2 Sat by Pulse Oximetry (%) 97 11/03/19 10:00 GENERAL: The patient is awake, alert, and fully oriented, in no acute distress. HEAD: Normal with no signs of trauma. EYES: PERRL, extraocular movements intact, sclera anicteric, conjunctiva clear. ENT: Ears normal, oropharynx clear without exudates, moist mucous membranes. NECK: Trachea midline, full range of motion, supple. LUNGS: Breath sounds equal, clear to auscultation bilaterally, no wheezes, no crackles, no accessory muscle use. HEART: 3/6 SM at base and LLSB with radiation to the carotid ,RRR, ABDOMEN: Soft, NT, ND, normoactive bowel sounds, no guarding, no rebound, no hepatosplenomegaly, no masses. EXTREMITIES: 2+ pulses, R leg graft is clean, xeroform applied by the wound care nurses with Unaboot in place. LLE with varicose veins and bruise medially , covered with Xeroform and wrapped it with jordan for precaution. NEUROLOGICAL: Cranial nerves II through XII grossly intact. Normal speech, gait not observed. PSYCH: Normal mood, normal affect. SKIN: Warm, dry, normal turgor, no rashes or lesions noted CBCD WBC 4.6 K/mm3 (4.0-10.0) 11/02/19 06:50 RBC 2.92 M/mm3 (3.60-5.2) L 11/02/19 06:50 Hgb 8.4 GM/dL (10.7-15.3) L 11/02/19 06:50 Hct 25.6 % (32.4-45.2) L 11/02/19 06:50 MCV 87.5 fl (80-96) 11/02/19 06:50 MCHC 32.9 g/dl (32.0-36.0) 11/02/19 06:50 RDW 14.9 % (11.6-15.6) 11/02/19 06:50 Plt Count 305 K/MM3 (134-434) 11/02/19 06:50 MPV 8.0 fl (7.5-11.1) 11/02/19 06:50 CMP Sodium 141 mmol/L (136-145) 11/02/19 06:50 Potassium 4.5 mmol/L (3.5-5.1) 11/02/19 06:50 Chloride 106 mmol/L (98-107) 11/02/19 06:50 Carbon Dioxide 30 mmol/L (21-32) 11/02/19 06:50 Anion Gap 6 MMOL/L (8-16) L 11/02/19 06:50 BUN 11.5 mg/dL (7-18) 11/02/19 06:50 Creatinine 0.7 mg/dL (0.55-1.3) 11/02/19 06:50 Random Glucose 126 mg/dL (74-106) H 11/02/19 06:50 Calcium 8.8 mg/dL (8.5-10.1) 11/02/19 06:50 Total Bilirubin 0.5 mg/dL (0.2-1) 11/02/19 06:50 AST 23 U/L (15-37) 11/02/19 06:50 ALT 17 U/L (13-61) 11/02/19 06:50 Alkaline Phosphatase 69 U/L (45-117) 11/02/19 06:50 Total Protein 6.3 g/dl (6.4-8.2) L 11/02/19 06:50 Albumin 2.8 g/dl (3.4-5.0) L 11/02/19 06:50 Current Medications Generic Name Dose Route Start Last Admin Trade Name Thiernoq PRN Reason Stop Dose Admin Acetaminophen 650 mg 10/28/19 15:02 11/03/19 09:38 Tylenol - PO 650 mg Q6H PRN Administration PAIN LEVEL 1-5 Amlodipine Besylate 10 mg 10/26/19 10:00 11/03/19 09:38 Norvasc - PO 10 mg DAILY RHIANNA Administration Atorvastatin Calcium 10 mg 10/26/19 22:00 11/02/19 21:29 Lipitor - PO 10 mg HS RHIANNA Administration Docusate Sodium 100 mg 10/28/19 22:00 11/03/19 09:38 Colace - PO 100 mg BID RHIANNA Administration Heparin Sodium (Porcine) 5,000 unit 10/29/19 14:00 11/03/19 13:27 Heparin - SQ 5,000 unit TID RHIANNA Administration Insulin Aspart 1 vial 10/26/19 00:45 11/03/19 16:16 Novolog Vial Sliding Scale - SQ 2 units TIDAC RHIANNA Administration Protocol Insulin Detemir 20 units 10/26/19 22:00 11/02/19 21:28 Levemir Vial SQ 20 units HS RHIANNA Administration Levothyroxine Sodium 75 mcg 10/26/19 07:00 11/03/19 07:04 Synthroid - PO 75 mcg DAILY@0700 RHIANNA Administration Metoprolol Tartrate 50 mg 10/26/19 01:00 11/03/19 09:38 Lopressor - PO 50 mg BID RHIANNA Administration Oxycodone HCl 2.5 mg 10/28/19 15:02 Roxicodone - PO Q6H PRN PAIN LEVEL 6-10 Pantoprazole Sodium 40 mg 10/26/19 10:00 11/03/19 09:38 Protonix - PO 40 mg DAILY RHIANNA Administration Polyethylene Glycol 17 gm 11/02/19 22:00 11/03/19 09:41 Miralax (For Daily Use) - PO 17 gm BID RHIANNA Administration Valsartan 160 mg 11/02/19 16:41 11/03/19 09:38 Diovan - PO 160 mg DAILY RHIANNA Administration Home Medications Medication Instructions Recorded Amlodipine Besylate 10 mg PO DAILY 12/29/17 Levothyroxine [Synthroid -] 75 mcg PO DAILY 12/29/17 Metformin HCl [Glucophage] 1,000 mg PO BID 12/29/17 Metoprolol Tartrate 50 mg PO BID 12/29/17 Pioglitazone HCl [Actos] 30 mg PO DAILY 12/29/17 Pravastatin Sodium [Pravachol -] 40 mg PO DAILY 12/29/17 Sitagliptin Phosphate [Januvia] 100 mg PO DAILY 12/29/17 Glimepiride 2 mg PO DAILY 05/11/18 Cephalexin [Keflex] 1 tab PO DAILY 10/25/19 Valsartan 320 mg PO DAILY 10/25/19 Insulin Detemir [Levemir Flextouch] 20 units SQ HS 10/26/19 Microbiology 10/28/19 07:10 Blood - Peripheral Venous Blood Culture - Preliminary NO GROWTH OBTAINED AFTER 72 HOURS, INCUBATION TO CONTINUE FOR 2 DAYS. 10/28/19 07:02 Blood - Peripheral Venous Blood Culture - Preliminary NO GROWTH OBTAINED AFTER 72 HOURS, INCUBATION TO CONTINUE FOR 2 DAYS. 10/27/19 15:53 Leg - Right Lower Gram Stain - Final 10/27/19 15:53 Leg - Right Lower Wound Culture - Final NO AEROBIC OR ANAEROBIC GROWTH OBTAINED. 10/25/19 22:45 Urine - Urine Clean Catch Urine Culture - Final NO GROWTH OBTAINED ASSESSMENT AND PLAN: patient is an 89yof with Pmhx of NIDDM, HTN, Hypothyroidism, CAD and HLD who presented from wound care due to RLE wound # Acute RLE wound s/p trauma s/p debridment and skin graft: continue to elevate leg x 25 degrees,weekly wound care and follow up in the office, Next dressing change with be wound care clinic as per Dr. Ruiz . Weekly wound care, by 's wound care clinic, available on Wednesdays. patient can sit on the chair with leg elevation. can ambulate to the bathroom, can go to the bathroom with a walker or bedside commode if she prefers. Cont tylenol. Prescribed a wheelchair: Standard Wheelchair to complete ADLS within the house, patient can self propel. # Constipation:continue miralax and colace, glycerin if needed # HTN: cont her home meds of norvasc, valsartan, and metoprolol # Mild elevation of potassium still within nl range; today 4.5, will continue with Diovan to 160mg instead of 320mg #DM uncontrolled: A1c 9, cont home dose of levemir QHS , SSI , patient can continue her metformin upon discharge #Normocytic anemia: iron studies might indicate iron def. ful l w/u as out pt . iron pills at dc # H/o Mod : asymptomatic. euovolemic DVT PX : SQ heparin Visit type - Emergency Visit Emergency Visit: Yes ED Registration Date: 10/25/19 Care time: The patient presented to the Emergency Department on the above date and was hospitalized for further evaluation of their emergent condition. - New Patient This patient is new to me today: No - Critical Care Critical Care patient: No - Discharge Referral Referred to [facility] No
[2019-11-03] MEDS: INSULIN (LEVEMIR) 100 UNITS/ML UNITS SQ SCH (21:42)
[2019-11-03] MEDS: ATORVASTATIN CA 10 MG TABLET (FP) PO SCH (21:42)
[2019-11-04 03:12] VITALS: BMI 31.6
[2019-11-04] MEDS: LEVOTHYROXINE NA 75 MCG TABLET (FP) PO SCH (06:36)
[2019-11-04] MEDS: HEPARIN NA (PORCINE) 5,000 UNITS/ML 1ML VIAL SQ SCH (06:37)
[2019-11-04] MEDS: INSULIN SLIDING SCALE (NOVOLOG) 1 VIAL SQ SCH (06:39)
[2019-11-04] MEDS ORDERED: INSULIN (NOVOLOG) ASPART 100 UNITS/ML 10ML VIAL ONE (06:42)
[2019-11-04] MEDS: ACETAMINOPHEN 325 MG TABLET (FP) PO PRN (09:33)
[2019-11-04] MEDS: DOCUSATE SODIUM 100 MG CAPSULE (FP) PO SCH (09:33)
[2019-11-04] MEDS: amLODIPine BESYLATE 10 MG TABLET (FP) PO SCH (09:33)
[2019-11-04] MEDS: PANTOPRAZOLE 40 MG TABLET (FP) PO SCH (09:33)
[2019-11-04] MEDS: METOPROLOL TARTRATE 50 MG TABLET (FP) PO SCH (09:33)
[2019-11-04] MEDS: VALSARTAN 160 MG TABLET (UD) PO SCH (09:33)
[2019-11-04] MEDS: POLYETHYLENE GLYCOL 3350 119 GM BTL PO SCH (09:34)
[2019-11-04 11:09] VITALS: BP 126/62; PULSE 85; TEMP 98
--- NOTE | 2019-11-04 17:38 | PN ---
Teaching Attending Note Name of Resident: Jann Gaona ATTENDING PHYSICIAN STATEMENT I saw and evaluated the patient. I reviewed the resident's note and discussed the case with the resident. I agree with the resident's findings and plan as documented. SUBJECTIVE: Patient is feeling better with no acute distress. comfortable. Vital Signs Temperature 98.0 F 11/04/19 10:00 Pulse Rate 85 11/04/19 10:00 Respiratory Rate 18 11/04/19 10:00 Blood Pressure 126/62 11/04/19 10:00 O2 Sat by Pulse Oximetry (%) 96 11/03/19 21:00 GENERAL: The patient is awake, alert, and fully oriented, in no acute distress. HEAD: Normal with no signs of trauma. EYES: PERRL, extraocular movements intact, sclera anicteric, conjunctiva clear. ENT: Ears normal, oropharynx clear without exudates, moist mucous membranes. NECK: Trachea midline, full range of motion, supple. LUNGS: Breath sounds equal, clear to auscultation bilaterally, no wheezes, no crackles, no accessory muscle use. HEART: 3/6 SM at base and LLSB with radiation to the carotid ,RRR, ABDOMEN: Soft, NT, ND, normoactive bowel sounds, no guarding, no rebound, no hepatosplenomegaly, no masses. EXTREMITIES: 2+ pulses, R leg graft is clean, xeroform applied by the wound care nurses with Unaboot in place. LLE with varicose veins and bruise medially , covered with Xeroform and wrapped it with jordan for precaution. NEUROLOGICAL: Cranial nerves II through XII grossly intact. Normal speech, gait not observed. PSYCH: Normal mood, normal affect. SKIN: Warm, dry, normal turgor, no rashes or lesions noted CBCD WBC 4.6 K/mm3 (4.0-10.0) 11/02/19 06:50 RBC 2.92 M/mm3 (3.60-5.2) L 11/02/19 06:50 Hgb 8.4 GM/dL (10.7-15.3) L 11/02/19 06:50 Hct 25.6 % (32.4-45.2) L 11/02/19 06:50 MCV 87.5 fl (80-96) 11/02/19 06:50 MCHC 32.9 g/dl (32.0-36.0) 11/02/19 06:50 RDW 14.9 % (11.6-15.6) 11/02/19 06:50 Plt Count 305 K/MM3 (134-434) 11/02/19 06:50 MPV 8.0 fl (7.5-11.1) 11/02/19 06:50 CMP Sodium 141 mmol/L (136-145) 11/02/19 06:50 Potassium 4.5 mmol/L (3.5-5.1) 11/02/19 06:50 Chloride 106 mmol/L (98-107) 11/02/19 06:50 Carbon Dioxide 30 mmol/L (21-32) 11/02/19 06:50 Anion Gap 6 MMOL/L (8-16) L 11/02/19 06:50 BUN 11.5 mg/dL (7-18) 11/02/19 06:50 Creatinine 0.7 mg/dL (0.55-1.3) 11/02/19 06:50 Random Glucose 126 mg/dL (74-106) H 11/02/19 06:50 Calcium 8.8 mg/dL (8.5-10.1) 11/02/19 06:50 Total Bilirubin 0.5 mg/dL (0.2-1) 11/02/19 06:50 AST 23 U/L (15-37) 11/02/19 06:50 ALT 17 U/L (13-61) 11/02/19 06:50 Alkaline Phosphatase 69 U/L (45-117) 11/02/19 06:50 Total Protein 6.3 g/dl (6.4-8.2) L 11/02/19 06:50 Albumin 2.8 g/dl (3.4-5.0) L 11/02/19 06:50 Current Medications Generic Name Dose Route Start Last Admin Trade Name Freq PRN Reason Stop Dose Admin Acetaminophen 650 mg 10/28/19 15:02 11/03/19 09:38 Tylenol - PO 650 mg Q6H PRN Administration PAIN LEVEL 1-5 Amlodipine Besylate 10 mg 10/26/19 10:00 11/03/19 09:38 Norvasc - PO 10 mg DAILY RHIANNA Administration Atorvastatin Calcium 10 mg 10/26/19 22:00 11/02/19 21:29 Lipitor - PO 10 mg HS RHIANNA Administration Docusate Sodium 100 mg 10/28/19 22:00 11/03/19 09:38 Colace - PO 100 mg BID RHIANNA Administration Heparin Sodium (Porcine) 5,000 unit 10/29/19 14:00 11/03/19 13:27 Heparin - SQ 5,000 unit TID RHIANNA Administration Insulin Aspart 1 vial 10/26/19 00:45 11/03/19 16:16 Novolog Vial Sliding Scale - SQ 2 units TIDAC RHIANNA Administration Protocol Insulin Detemir 20 units 10/26/19 22:00 11/02/19 21:28 Levemir Vial SQ 20 units HS RHIANNA Administration Levothyroxine Sodium 75 mcg 10/26/19 07:00 11/03/19 07:04 Synthroid - PO 75 mcg DAILY@0700 RHIANNA Administration Metoprolol Tartrate 50 mg 10/26/19 01:00 11/03/19 09:38 Lopressor - PO 50 mg BID RHIANNA Administration Oxycodone HCl 2.5 mg 10/28/19 15:02 Roxicodone - PO Q6H PRN PAIN LEVEL 6-10 Pantoprazole Sodium 40 mg 10/26/19 10:00 11/03/19 09:38 Protonix - PO 40 mg DAILY RHIANNA Administration Polyethylene Glycol 17 gm 11/02/19 22:00 11/03/19 09:41 Miralax (For Daily Use) - PO 17 gm BID RHIANNA Administration Valsartan 160 mg 11/02/19 16:41 11/03/19 09:38 Diovan - PO 160 mg DAILY RHIANNA Administration Home Medications Medication Instructions Recorded Amlodipine Besylate 10 mg PO DAILY 12/29/17 Levothyroxine [Synthroid -] 75 mcg PO DAILY 12/29/17 Metformin HCl [Glucophage] 1,000 mg PO BID 12/29/17 Metoprolol Tartrate 50 mg PO BID 12/29/17 Pioglitazone HCl [Actos] 30 mg PO DAILY 12/29/17 Pravastatin Sodium [Pravachol -] 40 mg PO DAILY 12/29/17 Sitagliptin Phosphate [Januvia] 100 mg PO DAILY 12/29/17 Glimepiride 2 mg PO DAILY 05/11/18 Cephalexin [Keflex] 1 tab PO DAILY 12/26/19 Valsartan 320 mg PO DAILY 10/25/19 Insulin Detemir [Levemir Flextouch] 20 units SQ HS 10/26/19 Microbiology 10/28/19 07:10 Blood - Peripheral Venous Blood Culture - Preliminary NO GROWTH OBTAINED AFTER 72 HOURS, INCUBATION TO CONTINUE FOR 2 DAYS. 10/28/19 07:02 Blood - Peripheral Venous Blood Culture - Preliminary NO GROWTH OBTAINED AFTER 72 HOURS, INCUBATION TO CONTINUE FOR 2 DAYS. 10/27/19 15:53 Leg - Right Lower Gram Stain - Final 10/27/19 15:53 Leg - Right Lower Wound Culture - Final NO AEROBIC OR ANAEROBIC GROWTH OBTAINED. 10/25/19 22:45 Urine - Urine Clean Catch Urine Culture - Final NO GROWTH OBTAINED ASSESSMENT AND PLAN: patient is an 89yof with Pmhx of NIDDM, HTN, Hypothyroidism, CAD and HLD who presented from wound care due to RLE wound # Acute RLE wound s/p trauma s/p debridment and skin graft: continue to elevate leg x 25 degrees,weekly wound care and follow up in the office, Next dressing change with be wound care clinic as per Dr. Ruiz . Weekly wound care, by 's wound care clinic, available on Wednesdays. patient can sit on the chair with leg elevation. can ambulate to the bathroom, can go to the bathroom with a walker or bedside commode if she prefers. Cont tylenol. Prescribed a wheelchair: Standard Wheelchair to complete ADLS within the house, patient can self propel. Patient is stable to go home. wheelchair ordered. # Constipation:continue miralax and colace, glycerin if needed # HTN: cont her home meds of norvasc, valsartan, and metoprolol # Mild elevation of potassium still within nl range; today 4.5, will continue with Diovan to 160mg instead of 320mg #DM uncontrolled: A1c 9, cont home dose of levemir QHS , SSI , patient can continue her metformin upon discharge #Normocytic anemia: iron studies might indicate iron def. ful l w/u as out pt . iron pills at dc # H/o Mod : asymptomatic. euovolemic Patient was discharged 2 days ago.
--- NOTE | 2019-11-07 14:28 | OP ---
DATE OF OPERATION: DATE OF DICTATION: 11/07/2019 PREOPERATIVE DIAGNOSIS: Open wound, right lower leg, post trauma. POSTOPERATIVE DIAGNOSIS: Open wound, right lower leg, post trauma, with skin necrosis, and hematoma. PROCEDURES DONE: 1. Excisional debridement of the skin, subcutaneous tissue, and fat. 2. De-fatting of the full-thickness skin graft. 3. Application of skin graft. 4. Unna boot. SURGEON: Viet Naranjo MD ANESTHESIA: IV sedation with local block anesthesia. HISTORY: Patient is an Belarusian-speaking, 81-year-old, female who 10 days ago was climbing down the stairs; she lost her balance, hit her leg. She was seen in [facility] and sent home. She was then seen in urgent care and advised to be seen in the wound clinic. Patient was seen 2 days ago at the wound clinic at [facility] with skin necrosis, hematoma, redness, and erythema. She was then sent to the emergency room. Admitted for surgery procedure. Patient was placed in a supine position. Informed consent had been taken from the patient, as well as the family. After block anesthesia was obtained of right leg, right leg was washed and cleaned with Betadine soap and solution and then draped in a standard aseptic manner. Skin prep Betadine. Patient was transferred to the operating table using standard procedure of identification of the patient and the site was carried out. Once it was agreed upon, left leg was injected with 1% lidocaine with epinephrine with Marcaine. A total of 16-20 mL was used in the subcutaneous tissue. Detachment of the flap skin which had been avulsed and was based proximally was detached from the proximal paddle. It was full thickness, down to the fascia. This was kept in a saline sponge. Excisional debridement of the wound was carried out with a 10-scalpel blade. Skin, subcutaneous tissue, fat was excised. Wound was then Pulsavac'd with a massive amount of 2000 mL of normal saline solution with bacitracin. Preparation of the graft. Fat was excised from the flap base. It was then de-fatted. It was meshed 3:1.5-cm thickness and was kept in a saline sponge. After hemostasis was secured and irrigated, graft was then applied to the base where it was surgically fixated with 5-0 Prolene sutures. Multiple sutures were applied, running and interrupted. Dressing consisted of Xeroform, 4 x 4's, Kerlix, Coban, and Unna boot application. Patient was sent to recovery room in a stable condition. Graft size is 100 square cm. Patient will be given IV antibiotics. She tolerated the procedure well and was in stable condition. VIET NARANJO M.D. [id number]
== END 2019-11-04 13:31 | disposition home or self-care (01) | DRG 571 ==
LOC: JER 16:32 → JERBED 17:22 → J6S 23:58
PROVIDERS: ADMIT Internal Medicine; ATTEND Internal Medicine
PROC: 0JRN07Z Replacement of Right Lower Leg Subcutaneous Tissue and Fascia with Autologous Tissue Substitute, Open Approach (ICD-10-PCS; 2019-10-26)
PROC: 2W3LX2Z Immobilization of Right Lower Extremity using Cast (ICD-10-PCS; 2019-10-26)
PROC: 0JBN0ZZ Excision of Right Lower Leg Subcutaneous Tissue and Fascia, Open Approach (ICD-10-PCS; principal; 2019-10-26 15:00)
DX: S81.801A Unspecified open wound, right lower leg, initial encounter (principal); N17.9 Acute kidney failure, unspecified; J90 Pleural effusion, not elsewhere classified; E11.52 Type 2 diabetes mellitus with diabetic peripheral angiopathy with gangrene; I96 Gangrene, not elsewhere classified; E11.65 Type 2 diabetes mellitus with hyperglycemia; I25.10 Atherosclerotic heart disease of native coronary artery without angina pectoris; E78.5 Hyperlipidemia, unspecified; E03.9 Hypothyroidism, unspecified; W19.XXXA Unspecified fall, initial encounter; Y92.89 Other specified places as the place of occurrence of the external cause; I10 Essential (primary) hypertension; E66.9 Obesity, unspecified; Z68.31 Body mass index [BMI] 31.0-31.9, adult; D64.9 Anemia, unspecified; I34.0 Nonrheumatic mitral (valve) insufficiency; K21.9 Gastro-esophageal reflux disease without esophagitis; K76.0 Fatty (change of) liver, not elsewhere classified; K64.9 Unspecified hemorrhoids; R50.9 Fever, unspecified; K59.09 Other constipation; S80.11XA Contusion of right lower leg, initial encounter
CPT/HCPCS: 36415; 71045-TC-FY; 80048; 80053; 81003; 82607; 82728; 82746; 82962; 83036; 83540; 83550; 83735; 84100; 84443; 85025; 85027; 85044; 85610; 85730; 86850; 86900; 86901; 87040; 87070; 87086; 87205; 88304-TC; 93005; 93010; 94010; 94760; 97116-GP; 97161-GP; 99281-25; 99283-25; G0463-25; J1644

== ENCOUNTER 2020-06-04 10:15 | Emergency (ER) | payer OTHER, MEDICARE ==
[2020-06-04 10:24] VITALS: BP 166/84; PULSE 79; TEMP 98.3; BMI 32.8
--- NOTE | 2020-06-04 11:46 | PDOC ---
History of Present Illness - General Chief Complaint: Injury Stated Complaint: FALL Time Seen by Provider: 06/04/20 10:36 History Source: Patient Exam Limitations: No Limitations - History of Present Illness Initial Comments: 06/04/20 11:42 Patient is an 89-year-old female who presents to the ED with right knee pain after a slip and fall at about 2-3 AM today. The patient had to go to the bathroom in the middle of the night, began to urinate and slipped on the urine. She landed awkwardly on her right knee. As per her son, she has been having difficulty putting weight on the right lower extremity since. She did not hit her head and denies any LOC. Several years ago she broke her hip from a slip and fall as well. The son is concerned she may have broken something. She is on aspirin. The patient has a history of hypertension and diabetes. Past History - Medical History Allergies/Adverse Reactions: Allergies Allergy/AdvReac Type Severity Reaction Status Date / Time No Known Allergies Allergy Verified 06/04/20 10:24 Home Medications: Ambulatory Orders Amlodipine Besylate 10 mg PO DAILY 12/29/17 Levothyroxine [Synthroid -] 75 mcg PO DAILY 12/29/17 Metformin HCl [Glucophage] 1,000 mg PO BID 12/29/17 Metoprolol Tartrate 50 mg PO BID 12/29/17 Pioglitazone HCl [Actos] 30 mg PO DAILY 12/29/17 Pravastatin Sodium [Pravachol -] 40 mg PO DAILY 12/29/17 Sitagliptin Phosphate [Januvia] 100 mg PO DAILY 12/29/17 Glimepiride 2 mg PO DAILY 05/11/18 Valsartan 320 mg PO DAILY 10/25/19 Insulin Detemir [Levemir Flextouch] 18 units SQ HS 10/26/19 Valsartan [Diovan] 160 mg PO DAILY 30 Days #30 tablet 11/04/19 Aspirin [ASA -] 1 tab PO DAILY 11/14/19 Hydrocodone/Acetaminophen [Gordon 5-325 Tablet] 1 each PO BID 3 Days #6 tablet MDD 2 06/04/20 Anemia: No Asthma: No Cancer: No CVA: Yes COPD: No CHF: No Dementia: No Diabetes: Yes (IDDM) GI Disorders: No Disorders: No HTN: Yes Hypercholesterolemia: Yes Liver Disease: No Seizures: No Thyroid Disease: Yes (Hypothyroidism) - Surgical History Cardiac Surgery: Yes (CAROTID ENDARDERECTOMY) Neurologic Surgery: (c) - Reproductive History Is Patient Now?: No - Immunization History Immunization Up to Date: Yes - Psycho-Social/Smoking History Smoking History: Never smoked Have you smoked in the past 12 months: No Information on smoking cessation initiated: No - Substance Abuse Hx (Audit-C & DAST Scrn) How often the patient has a drink containing alcohol: Never Score: In Men: 4 or > Positive; In Women: 3 or > Positive: 0 Screen Result (Pos requires Nsg. Audit-10AR): Negative In the last yr the pt used illegal drug/Rx for NonMed reason: No Score: Yes response is considered Positive: 0 Screen Result (Positive result requires Nsg. DAST-10): Negative Review of Systems - Review of Systems Comments:: 06/04/20 11:43 - Review of Systems Able to Perform ROS?: Yes Constitutional: No: Fever, Chills, Loss of Appetite, Night Sweats, Weakness HEENTM: No: Eye Pain, Vision changes, Ear Pain, Throat Pain, Throat Swelling, Mouth Pain, Difficulty Swallowing Respiratory: No: Cough, Shortness of Breath, Wheezing, Sputum Production Cardiac (ROS): No: Chest Pain, Chest Tightness, Palpitations, Irregular Heart Beat, Edema ABD/GI: No: Nausea, Vomiting, Abdominal Pain, Diarrhea : No Dysuria, No Hematuria, No Frequency, No Urgency, No Vaginal Discharge/Pain, No Penile Discharge/Pain Musculoskeletal: No: Muscle Pain, Back Pain, muscle Weakness, Neck Pain; positive: Right knee pain after slip and fall Integumentary: No: Lesions, Rash Neurological: No: Headache, Numbness, Tingling, Weakness, Speech Difficulties *Physical Exam - Vital Signs Last Vital Signs Temp Pulse Resp BP Pulse Ox 98.3 F 79 18 166/84 100 06/04/20 10:21 06/04/20 10:21 06/04/20 10:21 06/04/20 10:21 06/04/20 10:21 - Physical Exam 06/04/20 11:44 - Physical Exam General Appearance: Nourished, Appropriately Dressed, No Distress HEENT: EOMI, Normal Voice, Hearing Grossly Normal Neck: Supple, No Lymphadenopathy (R), No Lymphadenopathy (L), No Rigidity, No Decreased range of motion Respiratory/Chest: Lungs Clear, Normal Breath Sounds. No Respiratory Distress, No Accessory Muscle Use Cardiovascular: Regular Rhythm, Regular Rate, S1, S2, harsh systolic murmur appreciated. Gastrointestinal/Abdominal: Normal Bowel Sounds, Soft. Non-tender, No Guarding, No Rebound, No Rigidity Musculoskeletal: Normal Inspection. Right knee with moderate lateral ecchymosis appreciated. Moderate tenderness to palpation. Significant tenderness with range of motion. Tenderness primarily to the lateral superior tibial region to palpation. Patient is unable to weight-bear in the ED. Limited range of motion secondary to pain. EHL intact. Sensation intact distally. DP pulse palpable. Extremity: Normal Capillary Refill, Normal Inspection Integumentary: Normal Color, Dry. 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 Plan: -Right knee x-ray ordered -We will hold off on pain medication as the patient took 2 Tylenol about an hour prior to arrival -Will reassess 06/04/20 12:15 The patient is waiting for her x-ray read, as the PACS system is down. She is currently comfortable sitting in the chair and has little pain without moving. 06/04/20 13:03 Pt given Percocet for pain. Xray reviewed and no acute fracture appreciated on wet read by me. Will CT the right knee for further evaluation of acute fracture. 06/04/20 14:29 The patient and the son have been made aware that since the PACS system is down we will discharge the patient without the CT read. The patient will be placed in a knee immobilizer and remain nonweightbearing until either she gets a call regarding the CT results are follows up with orthopedics. The son understands and agrees with this treatment plan. A prescription for Gordon will be sent to the patient's pharmacy. The patient was previously seen by Dr. Rutherford for a subtrochanteric hip fracture many years ago. She can follow-up with him. 06/04/20 15:55 Imaging on-call read of the CT scan shows a possible tibial plateau fracture. I have called the patient's son, Josh, and he has been made aware of these findings and to continue nonweightbearing with the knee immobilizer in place. He should follow-up with orthopedics as instructed previously he understands and agrees with this treatment plan. Discharge - Discharge Information Problems reviewed: Yes Clinical Impression/Diagnosis: Right knee injury Qualifiers: Encounter type: initial encounter Qualified Code(s): S89.91XA - Unspecified injury of right lower leg, initial encounter Condition: Stable Disposition: HOME - Additional Discharge Information Prescriptions: Hydrocodone/Acetaminophen [Gordon 5-325 Tablet] 1 each PO BID 3 Days #6 tablet MDD 2 - Follow up/Referral Referrals: Roc Alvarez MD [Primary Care Provider] - Cisco Rutherford MD [Staff Physician] - Call tomorrow - Patient Discharge Instructions Patient Printed Discharge Instructions: DI for Knee Pain Additional Instructions: You must wear the knee brace at all times except for showering. You must remain nonweightbearing on the right leg until you follow-up with orthopedics for further evaluation and treatment. This means you should not be putting any coty ght on your right leg. Use a wheelchair to get around. Take the pain medication as prescribed but do not take it with Tylenol. The medication has Tylenol in it. You can take an additional 2 doses of Tylenol daily with taking this pain medication but do not exceed 2 additional doses of Tylenol. The CT scan is still pending but once the results become available, we will call you with the results. If you do not hear from us within the next several days, please call [phone] for results. - Post Discharge Activity
== END 2020-06-04 14:37 | disposition home or self-care (01) ==
LOC: JERFT 10:15
DX: S89.91XA Unspecified injury of right lower leg, initial encounter (principal); W01.0XXA Fall on same level from slipping, tripping and stumbling without subsequent striking against object, initial encounter
CPT/HCPCS: 73560-TC-RT-FY; 73700-TC-RT; 99284-25

== ENCOUNTER 2020-06-05 17:25 | Emergency (ER) | payer OTHER, MEDICARE ==
[2020-06-05 17:36] VITALS: BMI 34.0
[2020-06-05] MEDS ORDERED: morphine CARPU-JECT 2 MG/1 ML DISP.SYRIN IVPUSH ONE (17:36)
[2020-06-05] MEDS ORDERED: SODIUM CHLORIDE 0.9% 500 ML INFUS.BAG IV ONE (17:36)
--- NOTE | 2020-06-05 17:54 | PDOC ---
*Physical Exam - Vital Signs Last Vital Signs Temp Pulse Resp BP Pulse Ox 98.4 F 82 17 121/66 100 06/05/20 17:31 06/05/20 17:31 06/05/20 17:31 06/05/20 17:31 06/05/20 17:31 - Physical Exam 06/05/20 18:03 Gen: aaox3, nad heart; +s1s2 systolic murmur present lungs: cta b/l abd: soft, nt/nd +bs ext: R leg in straight leg brace, bruising to L big toe, and L hand, ttp along R leg, pulses intact Heart Score/ECG Review - ECG Intrepretation Comment:: 06/05/20 19:48 sinus with t wave inversions inferior leads, no acute st changes ED Treatment Course - LABORATORY CBC & Chemistry Diagram: 06/05/20 18:14 06/05/20 18:14 Medical Decision Making - Medical Decision Making 06/05/20 18:03 a/p: 89yo female with a R tibial plateau fx and R periprosthetic fx returns for admission -new bruising to L big toe -bruising L hand -will send for new xray -will need admission -preop labs ordered -pmd Dr. Alvarez 06/05/20 19:48 HECTOR Hayes spoke with Dr. Rutherford who requests pt transferred to ortho trauma given periprosthetic fx Discharge - Discharge Information Problems reviewed: Yes Clinical Impression/Diagnosis: Tibial plateau fracture, right, Joselin-prosthetic femoral shaft fracture Condition: Guarded Disposition: TRANSFER ACUTE CARE/OTHER HOSP - Admission No - Follow up/Referral Referrals: Roc Alvarez MD [Primary Care Provider] - - Patient Discharge Instructions - Post Discharge Activity
[2020-06-05] MEDS ORDERED: MORPHINE SULFATE 2 MG/ML VIAL ONE (18:05)
--- NOTE | 2020-06-05 18:13 | PDOC ---
History of Present Illness - General Chief Complaint: Injury Stated Complaint: RL FRACTURE Time Seen by Provider: 06/05/20 17:31 History Source: Patient Exam Limitations: No Limitations - History of Present Illness Initial Comments: 06/05/20 18:08 Patient is an 89-year-old female with a history of hypertension, diabetes, aortic stenosis who presents to the ED for follow-up after being diagnosed with a right distal medial femoral condyle fracture which is periprosthetic. The patient was seen in the ED by me yesterday, PACS was down, and a CT read was not available at the time of discharge. The patient was called back and advised to return to the emergency department for admission for the periprosthetic fracture. The son states that the patient has been having difficulty all night and has been in significant pain. The patient then noticed bruising to her left great toe and left hand. She states neither of those areas hurt. She is having significant pain to the right knee. Past History - Medical History Allergies/Adverse Reactions: Allergies Allergy/AdvReac Type Severity Reaction Status Date / Time No Known Allergies Allergy Verified 06/05/20 17:35 Home Medications: Ambulatory Orders Amlodipine Besylate 10 mg PO DAILY 12/29/17 Levothyroxine [Synthroid -] 75 mcg PO DAILY 12/29/17 Metformin HCl [Glucophage] 1,000 mg PO BID 12/29/17 Metoprolol Tartrate 50 mg PO BID 12/29/17 Pioglitazone HCl [Actos] 30 mg PO DAILY 12/29/17 Pravastatin Sodium [Pravachol -] 40 mg PO DAILY 12/29/17 Sitagliptin Phosphate [Januvia] 100 mg PO DAILY 12/29/17 Glimepiride 2 mg PO DAILY 05/11/18 Valsartan 320 mg PO DAILY 10/25/19 Insulin Detemir [Levemir Flextouch] 18 units SQ HS 10/26/19 Valsartan [Diovan] 160 mg PO DAILY 30 Days #30 tablet 11/04/19 Aspirin [ASA -] 1 tab PO DAILY 11/14/19 Hydrocodone/Acetaminophen [Pooler 5-325 Tablet] 1 each PO BID 3 Days #6 tablet MDD 2 06/04/20 Anemia: No Asthma: No Cancer: No CVA: Yes COPD: No CHF: No Dementia: No Diabetes: Yes (IDDM) GI Disorders: No Disorders: No HTN: Yes Hypercholesterolemia: Yes Liver Disease: No Seizures: No Thyroid Disease: Yes (Hypothyroidism) - Surgical History Cardiac Surgery: Yes (CAROTID ENDARDERECTOMY) Neurologic Surgery: (c) - Reproductive History Is Patient Now?: No - Immunization History Immunization Up to Date: Yes - Psycho-Social/Smoking History Smoking History: Never smoked Have you smoked in the past 12 months: No Information on smoking cessation initiated: No - Substance Abuse Hx (Audit-C & DAST Scrn) How often the patient has a drink containing alcohol: Never Score: In Men: 4 or > Positive; In Women: 3 or > Positive: 0 Screen Result (Pos requires Nsg. Audit-10AR): Negative In the last yr the pt used illegal drug/Rx for NonMed reason: No Score: Yes response is considered Positive: 0 Screen Result (Positive result requires Nsg. DAST-10): Negative Review of Systems - Review of Systems Comments:: 06/05/20 18:10 - Review of Systems Able to Perform ROS?: Yes Constitutional: No: Fever, Chills, Loss of Appetite, Night Sweats, Weakness HEENTM: No: Eye Pain, Vision changes, Ear Pain, Throat Pain, Throat Swelling, Mouth Pain, Difficulty Swallowing Respiratory: No: Cough, Shortness of Breath, Wheezing, Sputum Production Cardiac (ROS): No: Chest Pain, Chest Tightness, Palpitations, Irregular Heart Beat, Edema ABD/GI: No: Nausea, Vomiting, Abdominal Pain, Diarrhea : No Dysuria, No Hematuria, No Frequency, No Urgency, No Vaginal Discharge/Pain, No Penile Discharge/Pain Musculoskeletal: No: Muscle Pain, Back Pain, Muscle Weakness, Neck Pain; positive: Right medial femoral condyle periprosthetic fracture and tibial plateau fracture Integumentary: No: Lesions, Rash Neurological: No: Headache, Numbness, Tingling, Weakness, Speech Difficulties *Physical Exam - Vital Signs Last Vital Signs Temp Pulse Resp BP Pulse Ox 98.4 F 82 17 121/66 100 06/05/20 17:31 06/05/20 17:31 06/05/20 17:31 06/05/20 17:31 06/05/20 17:31 - Physical Exam 06/05/20 18:11 - Physical Exam General Appearance: Nourished, Appropriately Dressed, No Distress HEENT: EOMI, Normal Voice, Hearing Grossly Normal Neck: Supple, No Lymphadenopathy (R), No Lymphadenopathy (L), No Rigidity, No Decreased range of motion Respiratory/Chest: Lungs Clear, Normal Breath Sounds. No Respiratory Distress, No Accessory Muscle Use Cardiovascular: Regular Rhythm, Regular Rate, S1, S2; harsh systolic murmur appreciated Gastrointestinal/Abdominal: Normal Bowel Sounds, Soft. Non-tender, No Guarding, No Rebound, No Rigidity Musculoskeletal: Normal Inspection. Right knee with knee immobilizer in place. Diffuse right knee tenderness to palpation. Sensation intact distally. Left great toe with ecchymosis appreciated with no tenderness to palpation. Left hand with ecchymosis appreciated with no tenderness to palpation. Extremity: Normal Capillary Refill Integumentary: Normal Color, Dry. 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 Plan: -Nonweightbearing right lower extremity -Keep knee immobilizer in place at all times -Pain control -Preoperative labs ordered -EKG ordered -Chest x-ray ordered -Left hand and Left foot xray ordered -COVID swab ordered -Consult to Dr. Rutherford placed -N.p.o. after midnight -Patient to be admitted for further evaluation and treat 06/05/20 19:[address] Rutherford who states that he prefers the patient be transferred to [facility] as he is going out of town tomorrow, but also the complexity of the fracture being better treated by orthopedic trauma at [facility]. Will contact [facility] to arrange transfer. This has been discussed with Josh, the patient's son, who agrees with this treatment and plan. 06/05/20 20:[address] Lucia of orthopedics at [facility] who accepts the patient to be transferred to the emergency department there for further evaluation and treatment. The patient's family has been made aware and they understand and agree with this treatment and plan. Transfer paperwork comp leted. Discharge - Discharge Information Problems reviewed: Yes Clinical Impression/Diagnosis: Joselin-prosthetic femoral shaft fracture Tibial plateau fracture, right Qualifiers: Encounter type: initial encounter Fracture type: closed Qualified Code(s): S82.141A - Displaced bicondylar fracture of right tibia, initial encounter for closed fracture Condition: Guarded Disposition: TRANSFER ACUTE CARE/OTHER HOSP - Follow up/Referral Referrals: Roc Alvarez MD [Primary Care Provider] - - Patient Discharge Instructions - Post Discharge Activity - Transfer to Acute Care Facility Receiving Facility Name: [facility] [address] Accepting Physician:: Dr. Lucia
[2020-06-05 18:48] LABS: BASO % 0.2 % (0-2.0); EOS % 0.1 % (0-4.5); HEMATOCRIT 31.9 % (32.4-45.2); HEMOGLOBIN 10.6 GM/dL (10.7-15.3); LYMPH % 18.5 % (8-40); MCH 28.4 pg (25.7-33.7); MCHC 33.1 g/dl (32.0-36.0); MEAN PLT VOLUME 8.5 fl (7.5-11.1); MONO % 14.4 % (3.8-10.2); NEUT % 66.8 % (42.8-82.8); PLATELET COUNT 194 K/MM3 (134-434); RBC 3.71 M/mm3 (3.60-5.2); RDW 15.6 % (11.6-15.6); WHITE BLOOD COUNT 10.4 K/mm3 (4.0-10.0)
[2020-06-05 18:58] LABS: INR 1.24 (0.83-1.09); PROTHROMBIN TIME (PATIENT) 14.7 SEC (9.7-13.0)
[2020-06-05 19:01] LABS: ACTIVATED PTT 27.8 SECONDS (25.2-36.5)
[2020-06-05 19:14] LABS: ALBUMIN 3.6 g/dl (3.4-5.0); BLOOD UREA NITROGEN 23.3 mg/dL (7-18); CALCIUM 9.2 mg/dL (8.5-10.1); CREATININE 1.1 mg/dL (0.55-1.3); POTASSIUM 4.2 mmol/L (3.5-5.1); TOT PROT 7.3 g/dl (6.4-8.2)
[2020-06-05 20:30] VITALS: BP 149/49; PULSE 86; TEMP 98.5
--- NOTE | 2020-06-06 12:52 | EKG ---
Test Reason : Blood Pressure : / mmHG Vent. Rate : 085 BPM Atrial Rate : 085 BPM P-R Int : 160 ms QRS Dur : 090 ms QT Int : 386 ms P-R-T Axes : 036 005 -43 degrees QTc Int : 459 ms NORMAL SINUS RHYTHM NONSPECIFIC ST AND T WAVE ABNORMALITY ABNORMAL ECG WHEN COMPARED WITH ECG OF 25-OCT-2019 17:14, NO SIGNIFICANT CHANGE WAS FOUND Confirmed by MELLO VU MD ([id number]) on 06/06/2020 12:51:51 PM Referred By: Confirmed By:MELLO VU MD
== END 2020-06-05 20:36 | disposition short-term general hospital (02) ==
LOC: JER 17:25
PROC: 3E033NZ Introduction of Analgesics, Hypnotics, Sedatives into Peripheral Vein, Percutaneous Approach (ICD-10-PCS; principal; 2020-06-05)
DX: S82.141A Displaced bicondylar fracture of right tibia, initial encounter for closed fracture (principal)
CPT/HCPCS: 36415; 71046-TC-FY; 73130-TC-LT-FY; 73630-TC-LT; 80053; 85025; 85610; 85730; 93005; 93010; 99285-25; U0003